=== PATIENT | female | born 1960 | race Caucasian/White ===

== ENCOUNTER 2021-02-06 07:04 | Outpatient (REF) | payer OTHER, SELFPAY ==
[2021-02-06 12:05] LABS: Creatinine Urine 88.44 mg/dL; Microalbum/Creatinine Ratio Ur 5.6 ug/mg cr
[2021-02-06 12:07] LABS: Estimated Average Glucose 140 mg/dL; Hemoglobin A1c % 6.5 %
[2021-02-06 12:34] LABS: Anion Gap 14 (12-20); Blood Urea Nitrogen 18 mg/dL (9-16); Calcium 8.8 mg/dL (8.4-10.2); Carbon Dioxide 27 mmol/L (22-29); Chloride 103 mmol/L (96-108); Cholesterol 153 mg/dL; Estimated Glomerular Filt Rate > 60; Glucose Random 94 mg/dL (60-115); HDL Cholesterol 47 mg/dL; LDL Cholesterol Calculated 78 mg/dl; Potassium 5.2 mmol/L (3.3-5.1); Sodium 139 mmol/L (135-145); Triglycerides 140 mg/dL
== END 2021-02-06 07:05 | disposition home or self-care (01) ==
LOC: HO.HMGCLDS 07:04
PROVIDERS: PCP Internal Medicine; Visit Provider Internal Medicine
DX: E11.9 Type 2 diabetes mellitus without complications (principal)
CPT/HCPCS: 36415; 80048; 80061; 82043; 83036

== ENCOUNTER 2021-03-09 07:55 | Outpatient (REF) | payer OTHER, SELFPAY ==
[2021-03-09 11:26] LABS: MANUAL DIFF FLAG NO
[2021-03-09 11:39] LABS: Basophils Absolute Auto 0.1 X10*3/uL (0.0-0.2); Eosinophils Absolute Auto 0.1 X10*3/uL (0.0-0.4); Eosinophils Percent Auto 2.1 % (0-4); Hematocrit 40.4 % (37.0-47.0); Hemoglobin 12.6 g/dl (12.0-16.0); Imm Gran Abs Auto 0.01 X10*3/uL (0.00-0.03); Imm Gran Pct Auto 0.2 % (0.0-0.4); Lymphocytes Absolute Auto 1.4 X10*3/uL (1.2-4.9); Lymphocytes Percent Auto 24.2 % (20-40); Mean Corpuscular HGB Conc 31.2 g/dl (31.0-35.0); Mean Corpuscular Hemoglobin 25.9 pg (27.0-33.0); Mean Platelet Volume 10.5 fL (9.4-12.3); Monocytes Absolute Auto 0.4 X10*3/uL (0.1-1.2); Monocytes Percent Auto 6.7 % (2-11); Neutrophils Absolute Auto 3.8 x10*3/uL (2.0-8.3); Neutrophils Percent Auto 65.8 % (45-73); Platelet Count 246 X10*3/uL (160-400); Red Blood Count 4.87 X10*6/uL (4.20-5.50); Red Cell Distribution Width 14.4 % (11.0-16.0); White Blood Count 5.8 X10*3/uL (4.8-10.8)
[2021-03-09 11:52] LABS: Estimated Average Glucose 148 mg/dL; Hemoglobin A1c % 6.8 %
[2021-03-09 11:53] LABS: Alanine Aminotransferase 12 U/L (0-31); Alkaline Phosphatase 51 U/L (39-117); Anion Gap 12 (12-20); Aspartate Amino Transferase 15 U/L (5-31); Bilirubin Total 0.5 mg/dL (0.0-1.0); Blood Urea Nitrogen 16 mg/dL (9-16); Calcium 9.2 mg/dL (8.4-10.2); Carbon Dioxide 29 mmol/L (22-29); Chloride 101 mmol/L (96-108); Estimated Glomerular Filt Rate > 60; Glucose Random 111 mg/dL (60-115); Iron 54 mcg/dL (30-160); Percent Iron Saturation 13 % (15-50); Potassium 4.6 mmol/L (3.3-5.1); Rheumatoid Factor < 15.0 IU/mL (<15.0); Sodium 137 mmol/L (135-145); Total Iron Binding Capacity 403 mcg/dL (228-428); Total Protein 6.4 g/dL (6.5-8.0); Unsaturated Iron Binding 349 ug/dL
[2021-03-09 12:16] LABS: Vitamin B12 500 pg/mL (200-900)
[2021-03-09 12:18] LABS: Free T4 (Free Thyroxine) 1.03 ng/dL (0.71-1.85); Thyroid Stimulating Hormone 2.21 uIU/mL (0.32-4.0); Vitamin D 25-OH Total 72.2 ng/mL (>30)
[2021-03-09 12:29] LABS: Ferritin 9 ng/mL (10-250); Insulin 10 uU/mL (2-29)
[2021-03-12 11:41] LABS: Anti Nuclear Antibody Screen NEGATIVE (NEGATIVE)
== END 2021-03-09 07:56 | disposition home or self-care (01) ==
LOC: HO.HMGCLDS 07:55
PROVIDERS: PCP Nurse Practitioner Family; Visit Provider Nurse Practitioner Family
DX: E55.9 Vitamin D deficiency, unspecified (principal); E11.9 Type 2 diabetes mellitus without complications; M25.541 Pain in joints of right hand; D50.8 Other iron deficiency anemias; D51.3 Other dietary vitamin B12 deficiency anemia
CPT/HCPCS: 36415; 80053; 82306; 82607; 82728; 83036; 83525; 83540; 84439; 84443; 85025; 86038; 86039; 86141; 86431

== ENCOUNTER 2021-05-12 07:36 | Outpatient (REF) | payer OTHER, SELFPAY ==
--- NOTE | ~2021-05-12 | MM_ITS ---
EXAMINATION: MM SCREENING DIGITAL BREAST TOMOSYNTHESIS, BILATERAL CLINICAL INFORMATION: Screening. Asymptomatic. The lifetime risk of breast cancer based on the Tyrer-Cuzick Model is 7%. COMPARISON: Outside mammography: 06/20/2020, 05/10/2019 ([facility]) TECHNIQUE: Digital breast tomosynthesis is performed in both the craniocaudal and mediolateral oblique views along with computer-aided detection (CAD). Synthesized 2D images are generated from the tomosynthesis. FINDINGS: There are scattered areas of fibroglandular density (ACR BI-RADS breast composition Category b). Parenchymal pattern is similar to prior outside exams. There is no interval mass or architectural abnormality or abnormal breast parenchymal calcifications. The skin contours are smooth. The MLO views include more of the posterior upper axilla and achieved on prior outside exams. There is an otherwise unremarkable small right axillary node with some associated calcifications which may be related to old granulomatous changes or tattoo pigment if applicable. This is beyond field of view on prior exam outside studies. Otherwise, no lymphadenopathy. MM/MM tomosynthesis screening BI IMPRESSION: There are no significant changes from prior outside exams. ASSESSMENT: BI-RADS 2: Benign RECOMMENDATION: Routine annual mammography screening. This patient's information was entered into a reminder system with a target due date for their next mammogram.
== END 2021-05-12 07:37 | disposition home or self-care (01) ==
LOC: HO.MAMMO 07:36
PROVIDERS: PCP Nurse Practitioner Family; Visit Provider Nurse Practitioner Family
DX: Z12.31 Encounter for screening mammogram for malignant neoplasm of breast (principal)
CPT/HCPCS: 77063; 77067

== ENCOUNTER 2021-06-16 10:33 | Outpatient (REF) | payer OTHER, SELFPAY ==
--- NOTE | ~2021-06-16 | XR_ITS ---
EXAMINATION: XR HAND, BILATERAL CLINICAL INFORMATION: Pain COMPARISON: None TECHNIQUE: 3 views of each hand. FINDINGS: Right Hand: Interphalangeal Joints: There is scattered osteoarthritis manifested by nonuniform joint space narrowing, subchondral cystic change and marginal osteophytes. This involves the IP joint of the thumb, 2nd DIP joint, 3rd DIP, and 3rd PIP joint. Overall mild osteoarthritis. Metacarpophalangeal joints are normal. The bones and joints in the wrist are normal. Left Hand: Interphalangeal Joints: There is scattered osteoarthritis involving the 2nd and 3rd DIP joints manifested by marginal osteophytes and/or subchondral cystic change. Similar findings present in the IP joint of the thumb. Metacarpophalangeal joints normal. Bones and joints of the wrist normal. XR/XR hand LT 2V IMPRESSION: RIGHT HAND: Mild osteoarthritis. LEFT HAND: Mild osteoarthritis.
--- NOTE | ~2021-06-16 | XR_ITS ---
EXAMINATION: XR HAND, BILATERAL CLINICAL INFORMATION: Pain COMPARISON: None TECHNIQUE: 3 views of each hand. FINDINGS: Right Hand: Interphalangeal Joints: There is scattered osteoarthritis manifested by nonuniform joint space narrowing, subchondral cystic change and marginal osteophytes. This involves the IP joint of the thumb, 2nd DIP joint, 3rd DIP, and 3rd PIP joint. Overall mild osteoarthritis. Metacarpophalangeal joints are normal. The bones and joints in the wrist are normal. Left Hand: Interphalangeal Joints: There is scattered osteoarthritis involving the 2nd and 3rd DIP joints manifested by marginal osteophytes and/or subchondral cystic change. Similar findings present in the IP joint of the thumb. Metacarpophalangeal joints normal. Bones and joints of the wrist normal. XR/XR hand RT 2V IMPRESSION: RIGHT HAND: Mild osteoarthritis. LEFT HAND: Mild osteoarthritis.
--- NOTE | ~2021-06-16 | XR_ITS ---
EXAMINATION: BILATERAL KNEE SERIES CLINICAL INFORMATION: Pain COMPARISON: None TECHNIQUE: 4 views of both knees FINDINGS: Right knee: The bones joints and soft tissues are normal without effusion. Left knee: The bones joints and soft tissues are normal without effusion Minimal dystrophic calcification the subcutaneous soft tissues anteriorly without clinical significance XR/XR knee LT 2V IMPRESSION: Normal x-ray series of both knees
--- NOTE | ~2021-06-16 | XR_ITS ---
EXAMINATION: BILATERAL KNEE SERIES CLINICAL INFORMATION: Pain COMPARISON: None TECHNIQUE: 4 views of both knees FINDINGS: Right knee: The bones joints and soft tissues are normal without effusion. Left knee: The bones joints and soft tissues are normal without effusion Minimal dystrophic calcification the subcutaneous soft tissues anteriorly without clinical significance XR/XR knee RT 2V IMPRESSION: Normal x-ray series of both knees
[2021-06-16 13:11] LABS: MANUAL DIFF FLAG NO
[2021-06-16 13:12] LABS: Basophils Absolute Auto 0.1 X10*3/uL (0.0-0.2); Basophils Percent Auto 0.9 % (0-2); Eosinophils Absolute Auto 0.2 X10*3/uL (0.0-0.4); Hemoglobin 13.3 g/dl (12.0-16.0); Imm Gran Abs Auto 0.02 X10*3/uL (0.00-0.03); Imm Gran Pct Auto 0.3 % (0.0-0.4); Lymphocytes Percent Auto 18.1 % (20-40); Mean Corpuscular HGB Conc 31.7 g/dl (31.0-35.0); Mean Corpuscular Volume 85.4 fL (80.0-98.0); Mean Platelet Volume 10.1 fL (9.4-12.3); Monocytes Absolute Auto 0.4 X10*3/uL (0.1-1.2); Monocytes Percent Auto 7.3 % (2-11); Neutrophils Absolute Auto 4.1 x10*3/uL (2.0-8.3); Neutrophils Percent Auto 70.4 % (45-73); Platelet Count 269 X10*3/uL (160-400); Red Blood Count 4.92 X10*6/uL (4.20-5.50); Red Cell Distribution Width 15.4 % (11.0-16.0); White Blood Count 5.8 X10*3/uL (4.8-10.8)
[2021-06-16 13:36] LABS: C Reactive Protein 3.02 mg/dL (< or = 0.50); Rheumatoid Factor < 15.0 IU/mL (<15.0); Uric Acid 5.6 mg/dL (2.4-5.7)
[2021-06-16 13:50] LABS: Erythrocyte Sedimentation Rate 23 MM/HR (0-20)
[2021-06-17 21:12] LABS: A. Phagocytphilium DNA,RT-PCR NOT DETECTED (NOT DETECTED); Babesia Microti DNA, RT-PCR NOT DETECTED (NOT DETECTED); Borrelia Miyamotoi,DNA RT-PCR NOT DETECTED (NOT DETECTED); E.Chaffeensis DNA RT-PCR NOT DETECTED (NOT DETECTED); Lyme(Borrelia ssp)DNA RT-PCR NOT DETECTED (NOT DETECTED); Source-Tick borne disease EDTA
== END 2021-06-16 10:34 | disposition home or self-care (01) ==
LOC: HO.HMGCLDS 10:33
PROVIDERS: PCP Nurse Practitioner Family; Visit Provider Physician Assistant Medical
DX: M25.50 Pain in unspecified joint (principal); M25.40 Effusion, unspecified joint
CPT/HCPCS: 36415; 73120; 73560; 84550; 85025; 85652; 86140; 86431; 87798; 87801

== ENCOUNTER 2021-08-06 07:09 | Outpatient (REF) | payer OTHER, SELFPAY ==
[2021-08-06 07:57] LABS: Binax Internal Control QC Valid; Binax Now Covid-19 Ag Negative (Negative); Binax Performed by: HO.TORG
== END 2021-08-06 07:10 | disposition home or self-care (01) ==
LOC: HO.HMGCLDS 07:09
PROVIDERS: Visit Provider Nurse Practitioner Family
DX: Z13.89 Encounter for screening for other disorder (principal)

== ENCOUNTER → 2021-08-09 14:53 | Outpatient (BNVA) | payer OTHER, SELFPAY | PROVIDERS: PCP Nurse Practitioner Family; Visit Provider Physician Assistant | DX: Z13.89 Encounter for screening for other disorder (principal) ==

== ENCOUNTER 2021-08-15 07:06 | Outpatient (REF) | payer OTHER, SELFPAY ==
[2021-08-15 11:15] LABS: MANUAL DIFF FLAG NO
[2021-08-15 11:21] LABS: Basophils Absolute Auto 0.1 X10*3/uL (0.0-0.2); Basophils Percent Auto 0.7 % (0-2); Eosinophils Absolute Auto 0.1 X10*3/uL (0.0-0.4); Eosinophils Percent Auto 1.7 % (0-4); Hematocrit 44.1 % (37.0-47.0); Hemoglobin 14.1 g/dl (12.0-16.0); Imm Gran Abs Auto 0.02 X10*3/uL (0.00-0.03); Imm Gran Pct Auto 0.3 % (0.0-0.4); Lymphocytes Absolute Auto 1.1 X10*3/uL (1.2-4.9); Lymphocytes Percent Auto 15.2 % (20-40); Mean Corpuscular Hemoglobin 27.9 pg (27.0-33.0); Mean Corpuscular Volume 87.2 fL (80.0-98.0); Mean Platelet Volume 9.8 fL (9.4-12.3); Monocytes Absolute Auto 0.4 X10*3/uL (0.1-1.2); Neutrophils Absolute Auto 5.3 x10*3/uL (2.0-8.3); Neutrophils Percent Auto 76.1 % (45-73); Platelet Count 234 X10*3/uL (160-400); Red Blood Count 5.06 X10*6/uL (4.20-5.50); Red Cell Distribution Width 13.7 % (11.0-16.0)
[2021-08-15 11:37] LABS: Estimated Average Glucose 137 mg/dL; Hemoglobin A1c % 6.4 %
[2021-08-15 11:50] LABS: Alanine Aminotransferase 18 U/L (0-31); Albumin Level 3.9 g/dL (3.5-5.0); Alkaline Phosphatase 44 U/L (39-117); Anion Gap 13 (12-20); Aspartate Amino Transferase 19 U/L (5-31); Bilirubin Total 0.6 mg/dL (0.0-1.0); Blood Urea Nitrogen 10 mg/dL (9-16); C Reactive Protein 0.22 mg/dL (< or = 0.50); Calcium 9.3 mg/dL (8.4-10.2); Carbon Dioxide 30 mmol/L (22-29); Chloride 103 mmol/L (96-108); Cholesterol 147 mg/dL; Estimated Glomerular Filt Rate > 60; Glucose Fasting 103 mg/dL (60-99); HDL Cholesterol 47 mg/dL; LDL Cholesterol Calculated 79 mg/dl; Potassium 4.7 mmol/L (3.3-5.1); Sodium 141 mmol/L (135-145); Total Protein 6.4 g/dL (6.5-8.0); Triglycerides 108 mg/dL
[2021-08-15 11:54] LABS: Vitamin D 25-OH Total 72.7 ng/mL (>30)
[2021-08-15 12:09] LABS: Uric Acid 6.8 mg/dL (2.4-5.7)
[2021-08-15 12:25] LABS: Creatinine Urine 23.45 mg/dL; Microalbumin Urine < 5.0 mg/L
[2021-08-19 15:47] LABS: Apolipoprotein B 86 mg/dL (<90)
== END 2021-08-15 07:07 | disposition home or self-care (01) ==
LOC: HO.HMGCLDS 07:06
PROVIDERS: Absent Provider Nurse Practitioner Family; Visit Provider Registered Nurse
DX: E55.9 Vitamin D deficiency, unspecified (principal); E11.9 Type 2 diabetes mellitus without complications; D50.8 Other iron deficiency anemias; M06.4 Inflammatory polyarthropathy
CPT/HCPCS: 36415; 80053; 80061; 82043; 82172; 82306; 83036; 84550; 85025; 86140

== ENCOUNTER 2021-11-24 07:39 | Outpatient (REF) | payer OTHER, SELFPAY ==
[2021-11-24 11:13] LABS: MANUAL DIFF FLAG NO
[2021-11-24 11:16] LABS: Basophils Absolute Auto 0.1 X10*3/uL (0.0-0.2); Eosinophils Absolute Auto 0.1 X10*3/uL (0.0-0.4); Eosinophils Percent Auto 2.1 % (0-4); Hematocrit 43.5 % (37.0-47.0); Hemoglobin 14.4 g/dl (12.0-16.0); Imm Gran Abs Auto 0.02 X10*3/uL (0.00-0.03); Imm Gran Pct Auto 0.3 % (0.0-0.4); Lymphocytes Absolute Auto 1.5 X10*3/uL (1.2-4.9); Lymphocytes Percent Auto 24.1 % (20-40); Mean Corpuscular HGB Conc 33.1 g/dl (31.0-35.0); Mean Corpuscular Hemoglobin 28.4 pg (27.0-33.0); Mean Corpuscular Volume 85.8 fL (80.0-98.0); Mean Platelet Volume 10.2 fL (9.4-12.3); Monocytes Absolute Auto 0.4 X10*3/uL (0.1-1.2); Monocytes Percent Auto 6.5 % (2-11); Neutrophils Absolute Auto 4.1 x10*3/uL (2.0-8.3); Platelet Count 248 X10*3/uL (160-400); Red Blood Count 5.07 X10*6/uL (4.20-5.50); White Blood Count 6.2 X10*3/uL (4.8-10.8)
[2021-11-24 11:37] LABS: Estimated Average Glucose 120 mg/dL; Hemoglobin A1C 150.5457 umol/L; Hemoglobin A1c % 5.8 %
[2021-11-24 11:55] LABS: Cholesterol 137 mg/dL; HDL Cholesterol 47 mg/dL; Iron 69 mcg/dL (30-160); LDL Cholesterol Calculated 69 mg/dl; Percent Iron Saturation 21 % (15-50); Total Iron Binding Capacity 321 mcg/dL (228-428); Triglycerides 108 mg/dL; Unsaturated Iron Binding 252 ug/dL
[2021-11-24 11:59] LABS: Creatinine Urine 73.27 mg/dL; Microalbum/Creatinine Ratio Ur 6.8 ug/mg cr
[2021-11-24 12:00] LABS: TSH reflex Free T4 2.36 uIU/mL (0.32-4.0); Vitamin D 25-OH Total 75.8 ng/mL (>30)
[2021-11-24 12:12] LABS: Folate > 20.0 ng/mL (> or = 4.0); Vitamin B12 414 pg/mL (200-900)
== END 2021-11-24 07:40 | disposition home or self-care (01) ==
LOC: HO.HMGCLDS 07:39
PROVIDERS: PCP Internal Medicine; Visit Provider Internal Medicine
DX: E11.9 Type 2 diabetes mellitus without complications (principal); I10 Essential (primary) hypertension; E78.5 Hyperlipidemia, unspecified
CPT/HCPCS: 36415; 80061; 82043; 82306; 82607; 82746; 83036; 83540; 84443; 85025

== ENCOUNTER 2021-12-10 13:27 | Outpatient (REF) | payer OTHER, SELFPAY ==
--- NOTE | ~2021-12-10 | US_ITS ---
EXAMINATION: US EXTRACRANIAL CAROTID DUPLEX, BILATERAL CLINICAL INFORMATION: Carotid bruit. COMPARISON: None TECHNIQUE: Real-time ultrasound and Doppler techniques (integrating B-mode 2-D vascular images, Doppler spectral analysis and color-flow Doppler imaging) were utilized to interrogate the extracranial carotid arteries, the vertebral arteries and proximal subclavian arteries bilaterally. The degree of stenosis is determined by criteria similar to NASCET. FINDINGS: Right Side: 1. There is mild atherosclerotic plaque seen in the bifurcation/proximal ICA region. 2. The common carotid artery PSV proximally is 96 cm/s and distally 77 cm/s. 3. The proximal internal carotid artery velocities are 51 cm/s systolic and 15 cm/s diastolic. 4. The proximal external carotid artery PSV is 92 cm/s. 5. The vertebral artery shows antegrade flow. 6. The subclavian artery waveforms are normal. Left Side: 1. There is mild atherosclerotic plaque seen in the bifurcation/proximal ICA region. 2. The common carotid artery PSV proximally is 103 cm/s and distally 82 cm/s. 3. The proximal internal carotid artery velocities are 73 cm/s systolic and 33 cm/s diastolic. 4. The proximal external carotid artery PSV is 89 cm/s. 5. The vertebral artery shows antegrade flow. 6. The subclavian artery waveforms are normal. US/US carotid duplex BI IMPRESSION: 1. RIGHT: Minimal, non-hemodynamically significant stenosis of the proximal right internal carotid artery corresponding to a 0-49% stenosis by velocity criteria. 2. LEFT: Minimal, non-hemodynamically significant stenosis of the proximal left internal carotid artery corresponding to a 0-49% stenosis by velocity criteria.
== END 2021-12-10 13:28 | disposition home or self-care (01) ==
LOC: HO.HMGCX 13:27
PROVIDERS: Visit Provider Internal Medicine
DX: R09.89 Other specified symptoms and signs involving the circulatory and respiratory systems (principal); I10 Essential (primary) hypertension; E78.5 Hyperlipidemia, unspecified; E11.9 Type 2 diabetes mellitus without complications
CPT/HCPCS: 93880

== ENCOUNTER 2021-12-19 08:35 | Outpatient (REF) | payer OTHER, SELFPAY ==
--- NOTE | ~2021-12-19 | MM_ITS ---
EXAMINATION: BONE DENSITOMETRY CLINICAL INDICATION: Type 2 diabetes mellitus without complications. COMPARISON: None (current study represents initial baseline exam). TECHNIQUE: Using a [employer] DXA System (software version: 13.1) manufactured by [employer], dual-energy x-ray absorptiometry was performed of the lumbar spine and left hip. The images are of good technical quality. Summary results are attached. FINDINGS: AP SPINE L1-L4: BMD 1.105 g/cm2, Z-score -0.1, T-score -0.6, normal. LEFT FEMUR, NECK: BMD 0.828 g/cm2, Z-score -0.7, T-score -1.5, osteopenia. LEFT FEMUR, TOTAL: BMD 0.831 g/cm2, Z-score -1.0, T-score -1.4, osteopenia. IDENTIFIED RISK FACTORS: Early menopause, secondary osteoporosis. HISTORY OF FRACTURE: None listed. MEDICATIONS: Calcium, vitamin D. MM/XR DEXA axial skeleton IMPRESSION: 1. DIAGNOSIS: Osteopenia based on the lowest T-score value of -1.5 in the femoral neck applying World Health Organization criteria. 2. 10-YEAR FRACTURE RISK PREDICTION, FRAX: Major osteoporotic fracture (clinical spine, forearm, hip or shoulder) 7.8%. Hip fracture 0.7%. 3. Treatment Recommendations: NOF guidelines recommend consideration for treatment in postmenopausal women and men age 50 and older presenting with the following: -A hip or vertebral (clinical or morphometric) fracture. -T-score less than or equal to -2.5 at the femoral neck or spine after appropriate evaluation to exclude secondary causes. -Low bone mass at the hip or spine and a 10-year fracture probability by FRAX of greater than or equal to 3% for hip fracture or greater than or equal to 20% for major osteoporotic fracture based on the [place] adapted WHO algorithm. 4. Other Recommendations: All treatment decisions require clinical judgment and consideration of individual patient factors, including patient preferences, comorbidities, previous drug use, risk factors not captured in the FRAX model (e.g. frailty, falls, vitamin D deficiency, increased bone turnover, interval significant decline in bone density) and possible under or overestimation of fracture risk by FRAX. Additional medical evaluation for secondary cause of low bone mineral density may be appropriate. FUTURE SCAN RECOMMENDATION: People with diagnosed cases of osteoporosis or at high risk for fracture should have regular bone mineral density tests. For patients eligible for Medicare, routine testing is allowed once every 2 years. The testing frequency can be increased to one year for patients who have rapidly progressing disease, those who are receiving or discontinuing medical therapy to restore bone mass, or have additional risk factors.
== END 2021-12-19 08:36 | disposition home or self-care (01) ==
LOC: HO.MAMMO 08:35
PROVIDERS: PCP Internal Medicine; Visit Provider Internal Medicine
DX: Z13.820 Encounter for screening for osteoporosis (principal); E11.9 Type 2 diabetes mellitus without complications; I10 Essential (primary) hypertension; Z78.0 Asymptomatic menopausal state
CPT/HCPCS: 77080

== ENCOUNTER 2022-01-03 06:24 | Day surgery (SDC) | payer OTHER, SELFPAY ==
[2021-12-28 11:47] VITALS: BMI 35.9
--- NOTE | 2022-01-02 09:49 | HO.ANESPROP2 ---
Documented by User: Merary Dominguez NP 01/02/22 10:07 HPI - Anesthesia Eval Consult details Narrative: 61yo F for Upper Endoscopy and Colonoscopy PMFSH Active Problems Active Problems: All Active Problems (Updated 12/28/21 @ 11:43 by Verenice Saucedo RN) Encounter for screening for COVID-19 (Acute) Encounter for screening colonoscopy (Acute) Acid reflux (Acute) DM type 2 (diabetes mellitus, type 2) (Acute) HTN (hypertension) (Acute) Hyperlipidemia (Acute) Carotid bruit (Acute) Postmenopausal (Acute) Past Medical History Medical History Diabetes Elevated cholesterol GERD (gastroesophageal reflux disease) HTN (hypertension) Family History Family History Father No problems noted. Mother Diabetes Valvular heart disease CVA (cerebral vascular accident) Surgical History Surgical History History of colposcopy Hx of colonoscopy Hx of excision of lamina of cervical vertebra for decompression of spinal cord Hx of gastric bypass Hx of tonsillectomy Social History Social History Household Members Other:: Housing: House Alcohol intake: never Patient Tobacco Use Status: Never used Tobacco e-Cigarette/Vaping Use: Never Used Are you DNR?: No Advance Directives: No Advance Directives Information Provided: Yes Recently lost weight without trying: No Nutrition Risks: No Nutritional Risk service: No Current occupational status: employed Current occupation: [employer] Cognitive needs: No Hearing needs: No Vision needs: Yes Meds Allergies Allergy/AdvReac Type Severity Reaction Status Date / Time No Known Allergies Allergy Verified 06/16/21 09:36 Home Medications Medication Instructions Recorded Confirmed Last Taken Type calcium carbonate 600 mg calcium 600 mg PO DAILY 06/16/21 12/28/21 12/26/21 History (1,500 mg) tablet (Calcium) flash glucose scanning reader #1 ea 06/16/21 11/16/21 Unknown History (FreeStyle Sandro 14 Day [place]) lancets 28 gauge (FreeStyle #100 ea 06/16/21 11/16/21 Unknown History Lancets) lisinopril 10 mg tablet 10 mg PO DAILY 06/16/21 12/28/21 01/02/22 History loratadine 10 mg tablet 10 mg PO DAILY 06/16/21 12/28/21 01/02/22 History pantoprazole 20 mg tablet,delayed 20 mg PO DAILY 06/16/21 12/28/21 01/02/22 History release simvastatin 40 mg tablet 40 mg PO BEDTIME 06/16/21 12/28/21 01/02/22 History turmeric 400 mg capsule 400 mg PO DAILY 06/16/21 01/03/22 12/04/21 History metformin 1,000 mg tablet,extended 1,000 mg PO BID 08/09/21 12/28/21 01/02/22 History release 24hr cholecalciferol (vitamin D3) 25 25 mcg PO DAILY 11/16/21 12/28/21 01/02/22 History mcg (1,000 unit) tablet ferrous sulfate 143 mg PO DAILY 11/16/21 12/28/21 12/27/21 History semaglutide 1 mg/dose (4 mg/3 mL) 1 mg subcut QWEEK 11/16/21 12/28/21 12/28/21 History subcutaneous pen injector (Ozempic) Exam Exam Date and Time: January 02, 2022 0949 Height,Weight and Vital Signs: Height 5 ft 3 in Weight 91.852 kg Pertinent Lab Results Pertinent Lab Results: Laboratory Tests 08/15/21 11/24/21 07:43 07:45 WBC 6.2 Hgb 14.4 Hct 43.5 Plt Count 248 Sodium 141 Potassium 4.7 Chloride 103 Carbon Dioxide 30 H BUN 10 Creatinine 0.85 Narrative Narrative: US carotid duplex BI 11/2021 IMPRESSION: 1. RIGHT: Minimal, non-hemodynamically significant stenosis of the proximal right internal carotid artery corresponding to a 0-49% stenosis by velocity criteria. ? 2. LEFT: Minimal, non-hemodynamically significant stenosis of the proximal left internal carotid artery corresponding to a 0-49% stenosis by velocity criteria. Assessment and Plan Assessment Anesthesia Assessment: Chart Reviewed Documented by User: Negin Enrique MD 01/03/22 07:37 FORMERLY [facility], [facility] Past Medical History Medical History Diabetes Elevated cholesterol GERD (gastroesophageal reflux disease) HTN (hypertension) Functional capacity: independent ambulation Patient : No Family History Family History Father No problems noted. Mother Diabetes Valvular heart disease CVA (cerebral vascular accident) Surgical History Surgical History History of colposcopy Hx of colonoscopy Hx of excision of lamina of cervical vertebra for decompression of spinal cord Hx of gastric bypass Hx of tonsillectomy History of Problems with Anesthesia: No Social History Social History Household Members Other:: Housing: House Alcohol intake: never Patient Tobacco Use Status: Never used Tobacco e-Cigarette/Vaping Use: Never Used Are you DNR?: No Advance Directives: No Advance Directives Information Provided: Yes Recently lost weight without trying: No Nutrition Risks: No Nutritional Risk service: No Current occupational status: employed Current occupation: [employer] Cognitive needs: No Hearing needs: No Vision needs: Yes Meds Allergies Allergy/AdvReac Type Severity Reaction Status Date / Time No Known Allergies Allergy Verified 06/16/21 09:36 Home Medications Medication Instructions Recorded Confirmed Last Taken Type calcium carbonate 600 mg calcium 600 mg PO DAILY 06/16/21 12/28/21 12/26/21 History (1,500 mg) tablet (Calcium) flash glucose scanning reader #1 ea 06/16/21 11/16/21 Unknown History (FreeStyle Sandro 14 Day [place]) lancets 28 gauge (FreeStyle #100 ea 06/16/21 11/16/21 Unknown History Lancets) lisinopril 10 mg tablet 10 mg PO DAILY 06/16/21 12/28/21 01/02/22 History loratadine 10 mg tablet 10 mg PO DAILY 06/16/21 12/28/21 01/02/22 History pantoprazole 20 mg tablet,delayed 20 mg PO DAILY 06/16/21 12/28/21 01/02/22 History release simvastatin 40 mg tablet 40 mg PO BEDTIME 06/16/21 12/28/21 01/02/22 History turmeric 400 mg capsule 400 mg PO DAILY 06/16/21 01/03/22 12/04/21 History metformin 1,000 mg tablet,extended 1,000 mg PO BID 08/09/21 12/28/21 01/02/22 History release 24hr cholecalciferol (vitamin D3) 25 25 mcg PO DAILY 11/16/21 12/28/21 01/02/22 History mcg (1,000 unit) tablet ferrous sulfate 143 mg PO DAILY 11/16/21 12/28/21 12/27/21 History semaglutide 1 mg/dose (4 mg/3 mL) 1 mg subcut QWEEK 11/16/21 12/28/21 12/28/21 History subcutaneous pen injector (Ozempic) Exam Airway Mallampati Class: II TM Dist: >3cm Neck ROM: Full Heart: RRR Lungs: CT@ Assessment and Plan Final Anesthetic Review History of Problems with Anesthesia: No ASA Class: II Final Preanesthetic Review: No Changes in Pt Med Stat, Meds/Allgs Chart Reviewed, Consent Obtained/Reviewed and Anes Risks/Benef Reviewed Patient Risk: Low Procedure Risk: Low Anesthetic Plan Anesthetic Plan: MAC: Disposition: Standard PACU
[2022-01-03 06:30] VITALS: BP 133/81; PULSE 85; RESP 18; TEMP 36.7; O2SAT 98
[2022-01-03 06:40] LABS: Glucose, Whole Blood 94 mg/dL (60-115)
[2022-01-03] MEDS: Lactated Ringers 1,000 ML 100 ML IVCONT (06:51)
--- NOTE | 2022-01-03 07:02 | MHC.SHP ---
Pre-Procedural Eval Section A Date of Service: 01/03/22 Section B Chief Complaint: screening,reflux disease Relevant Family History (Specify if Yes): No Relevant Social History: None Present Medications: see Short Stay Collaborative assessment Medical History: Significant History (Diabetes Elevated cholesterol GERD (gastroesophageal reflux disease) HTN (hypertension)) History of Previous Operations: Relevant previous surgery/procedure and date(s) (History of colposcopy Hx of colonoscopy Hx of excision of lamina of cervical vertebra for decompression of spinal cord Hx of gastric bypass Hx of tonsillectomy) Allergies: Allergies Allergy/AdvReac Type Severity Reaction Status Date / Time No Known Allergies Allergy Verified 06/16/21 09:36 Review of Systems Sugical H&P ROS: Negative: Constitution, Cardiovascular, Respiratory, Neurological, Psychiatric, Hem-Onc, Allergic/Immunologic, Gastrointestinal, Genitourinary, Musculoskeletal, Integumentary, Endocrine and Eyes/Ears/Nose/Throat Exam Surgical H&P Exam: Normal: HEENT, Normal: Heart, Normal: Lungs, Normal: Extremities, Normal: Abdomen, Normal: Skin and Normal: Neurological Plan Diagnosis/Plan: Unchanged I have reviewed the history and physical and performed a pertinent physical examination on my patient. No changes have occurred unless specified.
--- NOTE | 2022-01-03 07:04 | P.OP_ITS ---
Operative Note Operative Note Date of Service: 01/03/22 Narrative: Operative Information Procedure Description: EGD, Colonoscopy Indication: GERD, screening Anesthesia: MAC FLEXIBLE TRANSORAL UPPER GASTROINTESTINAL ENDOSCOPY AND COLONOSCOPY PROCEDURE NOTE UPPER ENDOSCOPY Consent: Indications for the procedure and potential complications of bleeding, perforation, reaction to medications and missed diagnosis were discussed with the patient and informed consent was obtained. Instrument: Olympus GIF H 190 J mid size upper endoscope Monitoring: Vital signs and clinical assessment, continuous EKG monitoring, Pulse oximetry, Carbon Dioxide monitoring and blood pressure monitoring were done throughout the procedure. Procedure: The patient was placed in the left lateral decubitis position and pre-procedure medications were administered and a bite block was placed. The endoscope was inserted into the mouth and advanced under direct vision to the jejunum. A careful inspection was made as the upper endoscope was withdrawn including a retroflexed examination of the proximal stomach; Findings and interventions are described below. Hx of gastric bypass Findings: Larynx:normal Esophagus: GE junction at 34 cm, diaphragm hiatus at 37 cm, 3 cm sliding hiatal hernia noted. Erosive esophagitis LA grade a noted, bx taken from GEJ, distal esophagus and proximal esophagus. Stomach pouch: Normal mucosa. Biopsies were obtained from pouch and also from the anastomosis which was slightly inflammed. Grade 3 flap valve on retroflexed examination of the cardia. Jejunum: Normal -bx taken Intervention: Biopsies as noted above COLONOSCOPY Instrument: Olympus variable stiffness pediatric scope 190L Colonoscopy Monitoring: Vital signs and clinical assessment, continuous EKG monitoring, Pulse oximetry, Carbon Dioxide monitoring and blood pressure monitoring were done throughout the procedure. Colon withdrawal time was 7 minutes. Procedure: The patient was placed in the left lateral decubitis position and pre-procedure medications were administered. After a digital rectal examination of the ano-rectum, the video colonoscope was inserted into the rectum and advanced through the colon to the cecum/TI. The colonoscope was slowly withdrawn in a retrograde panoramic fashion and the colon mucosa was carefully examined including a retroflexed view of the rectum. Findings and interventions are described below. Procedure Difficulty: easy Findings: Terminal Ileum-normal Cecum:normal Ascending Colon: normal Transverse Colon -normal Descending Colon:normal Sigmoid Colon: mild diverticulosis Rectum: Retroflexion with small internal hemorrhoids, grade I Anorectum - normal Colon preparation: [place] Bowel Preparation Scale Right colon; 2 Transverse colon: 3 Left colon; 3 (0 = Unprepared colon segment with mucosa not seen due to solid stool that cannot be cleared. 1 = Portion of mucosa of the colon segment seen, but other areas of the colon segment not well seen due to staining, residual stool and/or opaque liquid. 2 = Minor amount of residual staining, small fragments of stool and/or opaque liquid, but mucosa of colon segment seen well. 3 = Entire mucosa of colon segment seen well with no residual staining, small fragments of stool or opaque liquid) Impression and Post Procedure Diagnosis: Endoscopy Findings: hiatal hernia erosive esophagitis Colonoscopy Findings: internal hemorrhoids diverticular disease Plan: Await Pathology results Repeat Colonoscopy in 10 years or earlier if clinically indicated High fiber diet leaflet avoid straining at stool, epsom salts and sitz bath, anusol supps or cream take PPI correctly, open capsule and mix with apple sauce, if sx persist then refer for hernia repair Above findings were reviewed with the patient and relevant handouts were provided if indicated.
[2022-01-03 08:32] VITALS: BP 104/64; PULSE 70; RESP 16; TEMP 36.2; O2SAT 95
--- NOTE | 2022-01-03 08:46 | P.CONAN_ITS ---
[facility] Active Problems Active Problems: All Active Problems (Updated 12/28/21 @ 11:43 by Verenice Saucedo RN) Encounter for screening for COVID-19 (Acute) Encounter for screening colonoscopy (Acute) Acid reflux (Acute) DM type 2 (diabetes mellitus, type 2) (Acute) HTN (hypertension) (Acute) Hyperlipidemia (Acute) Carotid bruit (Acute) Postmenopausal (Acute) Past Medical History Medical History Diabetes Elevated cholesterol GERD (gastroesophageal reflux disease) HTN (hypertension) Functional capacity: independent ambulation Family History Family History Father No problems noted. Mother Diabetes Valvular heart disease CVA (cerebral vascular accident) Surgical History Surgical History History of colposcopy Hx of colonoscopy Hx of excision of lamina of cervical vertebra for decompression of spinal cord Hx of gastric bypass Hx of tonsillectomy History of Problems with Anesthesia: No Social History Social History Household Members Other:: Housing: House Alcohol intake: never Patient Tobacco Use Status: Never used Tobacco e-Cigarette/Vaping Use: Never Used Are you DNR?: No Advance Directives: No Advance Directives Information Provided: Yes Recently lost weight without trying: No Nutrition Risks: No Nutritional Risk Patient : No service: No Current occupational status: employed Current occupation: [employer] Cognitive needs: No Hearing needs: No Vision needs: Yes Meds Allergies Allergy/AdvReac Type Severity Reaction Status Date / Time No Known Allergies Allergy Verified 06/16/21 09:36 Active Medications: Current Medications Lactated Ringer's (Lr) 1,000 mls @ 100 mls/hr IVCONT .Q10H DEEP Last Admin: 01/03/22 06:51 Dose: 100 mls/hr Home Medications Medication Instructions Recorded Confirmed Last Taken Type calcium carbonate 600 mg calcium 600 mg PO DAILY 06/16/21 12/28/21 12/26/21 History (1,500 mg) tablet (Calcium) flash glucose scanning reader #1 ea 06/16/21 11/16/21 Unknown History (FreeStyle [place]ro 14 Day [place]) lancets 28 gauge (FreeStyle #100 ea 06/16/21 11/16/21 Unknown History Lancets) lisinopril 10 mg tablet 10 mg PO DAILY 06/16/21 12/28/21 01/02/22 History loratadine 10 mg tablet 10 mg PO DAILY 06/16/21 12/28/21 01/02/22 History pantoprazole 20 mg tablet,delayed 20 mg PO DAILY 06/16/21 12/28/21 01/02/22 His tory release simvastatin 40 mg tablet 40 mg PO BEDTIME 06/16/21 12/28/21 01/02/22 History turmeric 400 mg capsule 400 mg PO DAILY 06/16/21 01/03/22 12/04/21 History metformin 1,000 mg tablet,extended 1,000 mg PO BID 08/09/21 12/28/21 01/02/22 History release 24hr cholecalciferol (vitamin D3) 25 25 mcg PO DAILY 11/16/21 12/28/21 01/02/22 History mcg (1,000 unit) tablet ferrous sulfate 143 mg PO DAILY 11/16/21 12/28/21 12/27/21 History semaglutide 1 mg/dose (4 mg/3 mL) 1 mg subcut QWEEK 11/16/21 12/28/21 12/28/21 History subcutaneous pen injector (Ozempic) Exam Exam Date and Time: January 03, 2022 0846 Height,Weight and Vital Signs: Height 5 ft 3 in Weight 91.852 kg Last Vital Signs Temp 97.1 F 01/03/22 08:32 Pulse 70 01/03/22 08:32 Resp 16 01/03/22 08:32 BP 104/64 01/03/22 08:32 Pulse Ox 95 01/03/22 08:32 O2 Del Method 01/03/22 08:32 Pertinent Lab Results Pertinent Lab Results: Laboratory Tests 01/03/22 06:36 POC Glucose 94 Assessment and Plan Final Anesthetic Review History of Problems with Anesthesia: No
[2022-01-03 08:47] VITALS: BP 120/73; PULSE 66; RESP 18; TEMP 36.2; O2SAT 95
--- NOTE | 2022-01-03 09:15 | HO.POSTANES ---
Post Anesthesia Evaluation Post Anesthesia Evaluation Vital Signs: Vital Signs Temp Pulse Resp BP Pulse Ox O2 Del Method 01/03/22 08:47 97.1 F 66 18 120/73 95 Room Air 01/03/22 08:32 97.1 F 70 16 104/64 95 Room Air 01/03/22 06:30 98.0 F 85 18 133/81 98 Room Air Anesthesia: Monitored Mental Status: Awake Pain Control: Satisfactory Nausea/Vomiting: None Hydration: Adequate Anesthesia-Related Issues: No Anes. Related Issues
== END 2022-01-03 09:16 | disposition home or self-care (01) ==
PROVIDERS: PCP Internal Medicine; Visit Provider Internal Medicine Gastroenterology
PROC: (CPT 45378; principal; 2022-01-03 07:30)
DX: Z12.11 Encounter for screening for malignant neoplasm of colon (principal); K57.30 Diverticulosis of large intestine without perforation or abscess without bleeding; K64.0 First degree hemorrhoids; K21.9 Gastro-esophageal reflux disease without esophagitis; K20.80 Other esophagitis without bleeding; K31.7 Polyp of stomach and duodenum; K29.50 Unspecified chronic gastritis without bleeding; K44.9 Diaphragmatic hernia without obstruction or gangrene; Z98.0 Intestinal bypass and anastomosis status; Z98.84 Bariatric surgery status; E78.00 Pure hypercholesterolemia, unspecified; I10 Essential (primary) hypertension; E11.9 Type 2 diabetes mellitus without complications; Z79.84 Long term (current) use of oral hypoglycemic drugs; Z79.899 Other long term (current) drug therapy
CPT/HCPCS: 45378; 43239; 82947; 88305; 88342

== ENCOUNTER 2022-01-25 10:35 | Outpatient (REF) | payer OTHER, SELFPAY ==
--- NOTE | ~2022-01-25 | XR_ITS ---
EXAMINATION: XR WRIST, LEFT CLINICAL INFORMATION: Injury of the left wrist, hand, fingers COMPARISON: 06/16/2021 TECHNIQUE: 4 views of the left wrist FINDINGS: There is no fracture or dislocation. The carpal rows are well aligned. Degenerative changes at the first carpometacarpal joint with small osteophytes. Mild soft tissue swelling throughout the wrist. XR/XR wrist LT w scaphoid IMPRESSION: No fracture or malalignment. Mild soft tissue swelling. Mild degenerative change of the first carpometacarpal joint.
== END 2022-01-25 10:36 | disposition home or self-care (01) ==
LOC: HO.HMGCX 10:35
PROVIDERS: PCP Internal Medicine; Visit Provider Internal Medicine
DX: S69.92XA Unspecified injury of left wrist, hand and finger(s), initial encounter (principal)
CPT/HCPCS: 73110

== ENCOUNTER 2022-02-21 06:45 | Outpatient (REF) | payer OTHER, SELFPAY ==
[2022-02-21 12:10] LABS: Alanine Aminotransferase 15 U/L (0-31); Albumin Level 3.9 g/dL (3.5-5.0); Alkaline Phosphatase 40 U/L (39-117); Anion Gap 11 (12-20); Aspartate Amino Transferase 17 U/L (5-31); Bilirubin Total 0.5 mg/dL (0.0-1.0); Blood Urea Nitrogen 12 mg/dL (9-16); Carbon Dioxide 30 mmol/L (22-29); Chloride 101 mmol/L (96-108); Cholesterol 147 mg/dL; Estimated Average Glucose 114 mg/dL; Estimated Glomerular Filt Rate > 60; Glucose Fasting 89 mg/dL (60-99); HDL Cholesterol 48 mg/dL; Hemoglobin A1c % 5.6 %; LDL Cholesterol Calculated 82 mg/dl; Potassium 4.6 mmol/L (3.3-5.1); Sodium 137 mmol/L (135-145); Total Protein 5.8 g/dL (6.5-8.0); Triglycerides 86 mg/dL
[2022-02-21 12:12] LABS: Creatinine Urine 35.44 mg/dL; Microalbumin Urine < 5.0 mg/L
[2022-02-22 14:21] LABS: Vitamin D 25-OH Total 48.8 ng/mL (>30)
[2022-02-22 17:20] LABS: Iron 71 mcg/dL (30-160)
[2022-02-22 17:41] LABS: Percent Iron Saturation 27 % (15-50); Total Iron Binding Capacity 265 mcg/dL (228-428); Unsaturated Iron Binding 194 ug/dL
== END 2022-02-21 06:46 | disposition home or self-care (01) ==
LOC: HO.HMGCLDS 06:45
PROVIDERS: PCP Internal Medicine; Visit Provider Internal Medicine
DX: E78.5 Hyperlipidemia, unspecified (principal); I10 Essential (primary) hypertension; E11.9 Type 2 diabetes mellitus without complications
CPT/HCPCS: 36415; 80053; 80061; 82043; 82306; 83036; 83540

== ENCOUNTER 2022-04-03 06:37 | Outpatient (REF) | payer OTHER, SELFPAY ==
[2022-04-03 12:15] LABS: Anion Gap 12 (12-20); Blood Urea Nitrogen 13 mg/dL (9-16); Calcium 9.2 mg/dL (8.4-10.2); Carbon Dioxide 29 mmol/L (22-29); Chloride 102 mmol/L (96-108); Estimated Glomerular Filt Rate > 60; Glucose Random 85 mg/dL (60-115); Iron 71 mcg/dL (30-160); Percent Iron Saturation 26 % (15-50); Potassium 4.5 mmol/L (3.3-5.1); Sodium 138 mmol/L (135-145); Total Iron Binding Capacity 269 mcg/dL (228-428); Unsaturated Iron Binding 198 ug/dL
[2022-04-03 12:31] LABS: Vitamin D 25-OH Total 47.6 ng/mL (>30)
== END 2022-04-03 06:38 | disposition home or self-care (01) ==
LOC: HO.HMGCLDS 06:37
PROVIDERS: PCP Internal Medicine; Visit Provider Internal Medicine
DX: I10 Essential (primary) hypertension (principal); E78.5 Hyperlipidemia, unspecified; E11.9 Type 2 diabetes mellitus without complications
CPT/HCPCS: 36415; 80048; 82306; 83540

== ENCOUNTER 2022-05-18 07:55 | Outpatient (REF) | payer OTHER, SELFPAY ==
--- NOTE | ~2022-05-18 | MM_ITS ---
EXAMINATION: MM SCREENING DIGITAL BREAST TOMOSYNTHESIS, BILATERAL CLINICAL INFORMATION: Screening. Asymptomatic. The lifetime risk of breast cancer based on the Tyrer-Cuzick Model is 10%. COMPARISON: Mammography: 05/12/2021; outside mammography 06/20/2020, 05/10/2019 ([facility]). TECHNIQUE: Digital breast tomosynthesis is performed in both the craniocaudal and mediolateral oblique views along with computer-aided detection (CAD). Synthesized 2D images are generated from the tomosynthesis. FINDINGS: There are scattered areas of fibroglandular density (ACR BI-RADS breast composition Category b). There are no significant masses, abnormal calcifications, or other abnormalities. No architectural abnormality or developing density or significant change from prior studies. No adenopathy. Skin contours are smooth. MM/MM tomosynthesis screening BI IMPRESSION: No mammographic evidence of malignancy. ASSESSMENT: BI-RADS 1: Negative RECOMMENDATION: Routine annual mammography screening. This patient's information was entered into a reminder system with a target due date for their next mammogram.
== END 2022-05-18 07:56 | disposition home or self-care (01) ==
LOC: HO.MAMMO 07:55
PROVIDERS: PCP Internal Medicine; Visit Provider Internal Medicine
DX: Z12.31 Encounter for screening mammogram for malignant neoplasm of breast (principal)
CPT/HCPCS: 77063; 77067

== ENCOUNTER 2022-06-07 07:09 | Outpatient (REF) | payer OTHER, SELFPAY ==
[2022-06-07 12:53] LABS: MANUAL DIFF FLAG NO
[2022-06-07 13:02] LABS: Basophils Absolute Auto 0.1 X10*3/uL (0.0-0.2); Basophils Percent Auto 1.2 % (0-2); Eosinophils Absolute Auto 0.1 X10*3/uL (0.0-0.4); Eosinophils Percent Auto 1.8 % (0-4); Hematocrit 42.4 % (37.0-47.0); Hemoglobin 13.4 g/dl (12.0-16.0); Imm Gran Abs Auto 0.01 X10*3/uL (0.00-0.03); Imm Gran Pct Auto 0.2 % (0.0-0.4); Lymphocytes Absolute Auto 1.3 X10*3/uL (1.2-4.9); Lymphocytes Percent Auto 26.2 % (20-40); Mean Corpuscular HGB Conc 31.6 g/dl (31.0-35.0); Mean Corpuscular Volume 88.7 fL (80.0-98.0); Mean Platelet Volume 10.4 fL (9.4-12.3); Monocytes Absolute Auto 0.3 X10*3/uL (0.1-1.2); Neutrophils Absolute Auto 3.1 x10*3/uL (2.0-8.3); Neutrophils Percent Auto 63.6 % (45-73); Platelet Count 251 X10*3/uL (160-400); Red Blood Count 4.78 X10*6/uL (4.20-5.50); Red Cell Distribution Width 13.2 % (11.0-16.0); White Blood Count 4.9 X10*3/uL (4.8-10.8)
[2022-06-07 13:27] LABS: Estimated Average Glucose 108 mg/dL; Hemoglobin A1C 129.3196 umol/L; Hemoglobin A1c % 5.4 %
[2022-06-07 13:44] LABS: Alanine Aminotransferase 12 U/L (0-31); Albumin Level 3.9 g/dL (3.5-5.0); Alkaline Phosphatase 41 U/L (39-117); Anion Gap 14 (12-20); Aspartate Amino Transferase 19 U/L (5-31); Bilirubin Total 0.6 mg/dL (0.0-1.0); Blood Urea Nitrogen 12 mg/dL (9-16); Calcium 9.2 mg/dL (8.4-10.2); Carbon Dioxide 28 mmol/L (22-29); Chloride 101 mmol/L (96-108); Cholesterol 154 mg/dL; Estimated Glomerular Filt Rate > 60; Glucose Fasting 87 mg/dL (60-99); HDL Cholesterol 51 mg/dL; LDL Cholesterol Calculated 83 mg/dl; Potassium 4.9 mmol/L (3.3-5.1); Sodium 138 mmol/L (135-145); Triglycerides 103 mg/dL
[2022-06-07 14:00] LABS: Vitamin B12 257 pg/mL (200-900); Vitamin D 25-OH Total 57.4 ng/mL (>30)
== END 2022-06-07 07:10 | disposition home or self-care (01) ==
LOC: HO.HMGCLDS 07:09
PROVIDERS: PCP Internal Medicine; Visit Provider Internal Medicine
DX: E78.5 Hyperlipidemia, unspecified (principal); I10 Essential (primary) hypertension; E11.9 Type 2 diabetes mellitus without complications
CPT/HCPCS: 36415; 80053; 80061; 82306; 82607; 83036; 85025

== ENCOUNTER 2022-06-26 09:34 | Outpatient (REF) | payer OTHER, SELFPAY ==
--- NOTE | ~2022-06-26 | XR_ITS ---
EXAMINATION: XR SHOULDER, RIGHT CLINICAL INFORMATION: Pain COMPARISON: None available. TECHNIQUE: AP external rotation, Grashey, scapular Y, and axillary views of the right shoulder. FINDINGS: Bone alignment is normal. No fracture or dislocation. Normal joint spaces. Small soft tissue calcification adjacent to the greater tuberosity. XR/XR shoulder RT min 2V IMPRESSION: Small soft tissue calcification adjacent to the greater tuberosity suggestive of calcific tendinitis or bursitis.
== END 2022-06-26 09:35 | disposition home or self-care (01) ==
LOC: HO.HMGCX 09:34
PROVIDERS: PCP Internal Medicine; Visit Provider Internal Medicine
DX: M25.511 Pain in right shoulder (principal)
CPT/HCPCS: 73030

== ENCOUNTER 2022-08-01 14:00 | Outpatient (RCR) | payer OTHER, SELFPAY ==
--- NOTE | 2022-06-28 10:20 | MHC.PT.EP ---
[facility] [place] Office [place] Office [place] Office [address] Miko Dubois [address] [phone] F: [phone] F: [phone] F: [phone] F: [phone] Physical Therapy Plan of Care Date of Evaluation: Date of Surgery: Diagnosis: This is a 61 yo female presenting to skilled PT with a script for pain in R shoulder. Assessment: This is a 61 yo female presenting to skilled PT with a script for pain in R shoulder. Patient reporting shoulder pain ongoing for about 5 months now and getting worse with time. She does not note any injury. Pain increases with reaching forward, laterally into abduction, behind her with IR and OH/flexion. She is RHD. She reports compensating to avoid pain; examples include using L hand, avoiding laying on R side. She also reports pain with getting dressed, housecleaning above head. No issues prior that were noted however did have cortisone injections in the 80's on the same side for bursitis. Denies numbness or tingling, denies radiating symptoms and denies neck pain. Pain is located anterior/superior R shoulder GHJ and radiates to deltoid laterally but does not enter the bicep area or elbow. Assessment reveals pain that ranges from 0-7/10. Patient demos decreased shoulder ROM, strength of RTC and scapular stabilizers, and rounded posture and forward head. She denies TTP, radiating or radicular pain or neck pain. Based on functional limitations, impaired QOL and decreased pain tolerance patient is a good candidate for skilled PT 2x/wk for 6wks. Frequency and Duration: The patient will be seen 2x/wk for 6wks Short Term Goals: I in HEP Improve ROM equal and nonpainful to L UE in 2wks Improve pain to no more than a 3/10 at the worst in 2wks Penitentiary Goals: Report 90% improvement in QOL in 5wks Improve SPADI by 10 points in 5wks Improve strength by at least 1 grade in 5wks Treatment Plan: Modalities to reduce pain, spasms and effusion. Manual therapy to restore motion and function. Therapeutic exercise to improve strength and flexibility. Neuromuscular re-education for posture and balance. Therapeutic activities to return to functional activities of daily living. Electronically signed by: Alesha Guaman PT Please sign and return to therapist. Thank you for your referral.
--- NOTE | 2022-08-21 09:34 | MHC.PT.DC ---
[facility] [place] Office [place] Office [place] Office [address] [phone] F: [phone] F: [phone] F: [phone] F: [phone] Physical Therapy Discharge Report Diagnosis: This is a 61 yo female presenting to skilled PT with a script for pain in R shoulder. Date of Surgery: Date of Evaluation: 06/28/22 Date of Discharge: 08/21/22 Treatments to Date: 6 Cancellations to Date: 0 No Shows to Date: 0 Discharge Status: Achieved Goals Improved Function Independent with HEP Patient Elected to Stop Discharge Summary: 08/01/2022: Patient reporting overall there has been some relief with PT but still has some catching with certain movements and achiness with ROM limitation awareness. She demos 170 degs flexion, 170 abd, 80 ER and 35 IR (both in 90 degs abd). Demos good compliance with HEP and has a program that she can be I with at home on her own. Educated her to call our office as needed in the future otherwise DC to HEP. Electronically signed by: Alesha Guaman PT Please sign and return to therapist. Thank you for your referral.
== END 2022-08-21 09:34 | disposition home or self-care (01) ==
LOC: HO.PTCHIC 14:00
PROVIDERS: PCP Internal Medicine; Visit Provider Internal Medicine
DX: M25.511 Pain in right shoulder (principal)
CPT/HCPCS: 97110; 97140; 97161; 97162

== ENCOUNTER 2022-11-06 14:52 | Outpatient (REF) | payer OTHER, SELFPAY ==
--- NOTE | ~2022-11-06 | MR_ITS ---
EXAMINATION: MR SHOULDER WITHOUT CONTRAST, RIGHT CLINICAL INFORMATION: Right shoulder pain COMPARISON: None available. Teres minor is intact. TECHNIQUE: MRI of the shoulder without contrast was performed on a high-field scanner. FINDINGS: ROTATOR CUFF: Mild supraspinatus tendinosis. Suspected small intrasubstance tear in the posterior fibers measuring 5 mm ML. Mild infraspinatus tendinosis. Small low T1/low T2 signal focus in the distal infraspinatus fibers could reflect focus of calcific tendinitis, could potentially correlate with the x-ray findings. The focus of calcification seen on the previous x-ray of 06/26/2022 is not clearly evident on MRI. Teres minor, subscapularis are intact. No muscle atrophy or fatty infiltration. BICEPS: Intact CORACOACROMIAL ARCH: The undersurface of the acromion is curved with no subacromial spur. Moderate acromioclavicular arthritis. Small fluid in the subacromial subdeltoid space. LABRUM/CAPSULE: No displaced labral tear is identified. Inferior capsule is grossly intact. GLENOHUMERAL JOINT/MARROW: No fracture. No suspicious marrow signal changes. Small joint fluid. No definite loose bodies identified. MR/MR shoulder RT wo con IMPRESSION: 1. Mild supraspinatus tendinosis. Suspected small 5 mm question intrasubstance tear in the posterior fibers. 2. Mild infraspinatus tendinosis. The previously seen focus of calcification superior to the greater tuberosity is not clearly evident on MRI. Small focus of low T1/low T2 signal in the distal fibers could reflect focus of calcific tendinitis, but this is not definitive. Recommend repeat radiographs for further evaluation. 3. Moderate acromioclavicular arthritis. Mild subacromial subdeltoid bursitis. 4. Additional findings and details as above.
== END 2022-11-06 14:53 | disposition home or self-care (01) ==
LOC: HO.MRI 14:52
PROVIDERS: PCP Internal Medicine; Visit Provider Internal Medicine
DX: M12.811 Other specific arthropathies, not elsewhere classified, right shoulder (principal)
CPT/HCPCS: 73221

== ENCOUNTER 2022-11-29 09:53 | Outpatient (AMB) | payer OTHER, SELFPAY ==
--- NOTE | 2022-11-29 09:56 | MHC.OFFVIS ---
Intake Vital Signs 11/29/22 10:00 Height 5 ft 3 in Weight 182 lb BMI 32.2 Intake Visit Reasons: Fruit Packer Face And Fill- RT ROTATOR CUFF MRI done Intake Note: Mariely is a 62 year old right hand dominant female who presents today as a new patient with complaints of right shoulder pain. Patient had an MRI done @ [facility]. Patient reports that she has discomfort with ROM particularly lateral reaching and behind the back . Denies injury. Denies numbness and tingling. Allergies No Known Allergies Allergy (Verified 11/29/22 09:56) HPI Fruit Packer Face And Fill- RT ROTATOR CUFF MRI done HPI Details Mariely is a 62 year old woman who presents for an MRI review of her right shoulder pain. She works at [employer]. She complains of pain in her right shoulder, worse with ROM and reaching activities. She denies any pain at rest or at night, unless she is lying on her right side. She says she is able to modify her activities to manage her pain She says her pain has been present for ~9 months now, and she completed some PT ~5-6 months ago which helped her somewhat until she overextended reaching and worsened her pain. [facility] Medical History Diabetes Elevated cholesterol GERD (gastroesophageal reflux disease) HTN (hypertension) Surgical History History of colposcopy Hx of colonoscopy Hx of excision of lamina of cervical vertebra for decompression of spinal cord Hx of gastric bypass Hx of tonsillectomy Family History Father No problems noted. Mother Diabetes Valvular heart disease CVA (cerebral vascular accident) Social History (Updated 11/29/22 @ 09:59 by Mable Dow CMA) Household Members Other:: Housing: House Alcohol intake: never Patient Tobacco Use Status: Never used Tobacco e-Cigarette/Vaping Use: Never Used service: No Current occupational status: employed Current occupation: Nurse - [employer] Cognitive needs: No Hearing needs: No Vision needs: Yes Review of Systems Const All systems reviewed & are unremarkable except as noted in HPI and below Physical Exam Vital Signs: BMI result Body Mass Index 32.2 Const General: no acute distress, alert and awake Orientation/consciousness: patient oriented x3 HEENT Head: Yes normocephalic and Yes atraumatic Eyes EOM: EOMs intact bilaterally Resp Effort & Inspection: normal respiratory effort and able to speak in complete sentences Cardio Jugular venous distension: no JVD Skin General skin exam: turgor normal Rashes: no rashes Neuro General: patient oriented x3 Extrem Other: Right Shoulder: - empty can + H&N - provocative tests mild stiffness with ER to T12 Psych Appearance: grossly normal Affect: normal affect Attitude: cooperative Office Procedures Joint Injection/Drain Joint Injection/Drain Details: Injected 1 mL of Decadron and 3 mL 1% lidocaine and 3 mL of 0.25% Marcaine. Site was prepped using aseptic technique. Patient tolerated the procedure well. Primary Site: right shoulder Approach Used: posterolateral Coding 39084 - Large joint Procedure code (CPT) selection complete Results Reviewed Results Reviewed: 11/29/22 10:16 BUPivacaine MPF 0.25 % [Sensorcaine-MPF 0.25% 10 ML] 10 ml .ROUTE .STK-MED ONE Lidocaine HCl 2 % MPF [Xylocaine 2 % MPF] 5 ml .ROUTE .STK-MED ONE dexAMETHasone sod phosphate [Decadron] 4 mg .ROUTE .STK-MED ONE I personally reviewed relevant MR images 1. Mild supraspinatus tendinosis. Suspected small 5 mm question intrasubstance tear in the posterior fibers. 2. Mild infraspinatus tendinosis. The previously seen focus of calcification superior to the greater tuberosity is not clearly evident on MRI. Small focus of low T1/low T2 signal in the distal fibers could reflect focus of calcific tendinitis, but this is not definitive. Recommend repeat radiographs for further evaluation. 3. Moderate acromioclavicular arthritis. Mild subacromial subdeltoid bursitis. 4. Additional findings and details as above. Assessment & Plan Assessment & Plan (1) Rotator cuff arthropathy of right shoulder: Code(s): M12.811 - Other specific arthropathies, not elsewhere classified, right shoulder Plan: This is a 62 year old woman with right RTC impingement syndrome, with a small intrasubstance tear. She has pain primarily with lateral reaching and behind back activities, but denies any pain at rest or at night. She had some relief from PT in the past, an denies any recent injections. I discussed her diagnosis and treatment options. I recommend bo-scapular strengthening & activity modification. I injected her right shoulder today, which she tolerated well. She will continue PT and let me know if she worsens. (2) DM type 2 (diabetes mellitus, type 2): Comment: A1c is 5.4, decrease metformin to 500 mg twice a day and continue Ozempic, ADA diet regular physical activity, follow-up in 3 months with a fasting labs before Code(s): E11.9 - Type 2 diabetes mellitus without complications Plan: Well controlled diabetic but informed of the hyperglycemic effects of steroids. Plan Scribed for Dong Orellana MD by Cooper Hines, medical radiation therapist, on 11/29/22 at 10:10 AM, EST. Coding Level of Care Code New Pt Level 4 (34170) Diagnoses Rotator cuff arthropathy of right shoulder M12.811 DM type 2 (diabetes mellitus, type 2) E11.9 CPT Codes Coding - 27948 Large joint: 44484 - Large joint ([id number])
[2022-11-29 10:00] VITALS: BMI 32.2
== END 2022-11-29 11:57 | disposition home or self-care (01) ==
PROVIDERS: PCP Internal Medicine; Visit Provider Orthopaedic Surgery
DX: M12.811 Other specific arthropathies, not elsewhere classified, right shoulder (principal)
CPT/HCPCS: 20610; 99204

== ENCOUNTER → 2022-11-29 09:53 | Outpatient (BNVA) | payer OTHER, SELFPAY | PROVIDERS: PCP Internal Medicine; Visit Provider Orthopaedic Surgery | DX: M12.811 Other specific arthropathies, not elsewhere classified, right shoulder (principal); E11.9 Type 2 diabetes mellitus without complications | CPT/HCPCS: 20610; J1100 ==

== ENCOUNTER 2022-12-11 06:47 | Outpatient (REF) | payer OTHER, SELFPAY ==
[2022-12-11 12:13] LABS: MANUAL DIFF FLAG NO
[2022-12-11 12:27] LABS: Basophils Absolute Auto 0.1 X10*3/uL (0.0-0.2); Basophils Percent Auto 1.3 % (0-2); Eosinophils Absolute Auto 0.1 X10*3/uL (0.0-0.4); Eosinophils Percent Auto 2.3 % (0-4); Hematocrit 41.7 % (37.0-47.0); Hemoglobin 13.6 g/dl (12.0-16.0); Imm Gran Abs Auto 0.02 X10*3/uL (0.00-0.03); Imm Gran Pct Auto 0.3 % (0.0-0.4); Lymphocytes Absolute Auto 1.5 X10*3/uL (1.2-4.9); Lymphocytes Percent Auto 24.1 % (20-40); Mean Corpuscular HGB Conc 32.6 g/dl (31.0-35.0); Mean Corpuscular Hemoglobin 28.4 pg (27.0-33.0); Mean Corpuscular Volume 87.1 fL (80.0-98.0); Mean Platelet Volume 10.5 fL (9.4-12.3); Monocytes Absolute Auto 0.4 X10*3/uL (0.1-1.2); Monocytes Percent Auto 6.5 % (2-11); Neutrophils Percent Auto 65.5 % (45-73); Platelet Count 236 X10*3/uL (160-400); Red Blood Count 4.79 X10*6/uL (4.20-5.50); Red Cell Distribution Width 13.7 % (11.0-16.0); White Blood Count 6.1 X10*3/uL (4.8-10.8)
[2022-12-11 12:53] LABS: Estimated Average Glucose 120 mg/dL; Hemoglobin A1c % 5.8 % (<6.0)
[2022-12-11 12:55] LABS: Alanine Aminotransferase 16 U/L (0-31); Albumin Level 3.9 g/dL (3.5-5.0); Alkaline Phosphatase 46 U/L (39-117); Anion Gap 11 (12-20); Aspartate Amino Transferase 20 U/L (5-31); Bilirubin Total 0.5 mg/dL (0.0-1.0); Blood Urea Nitrogen 13 mg/dL (9-16); Calcium 9.4 mg/dL (8.4-10.2); Carbon Dioxide 29 mmol/L (22-29); Chloride 103 mmol/L (96-108); Cholesterol 146 mg/dL (<200); Estimated Glomerular Filt Rate > 60; Glucose Fasting 96 mg/dL (60-99); HDL Cholesterol 53 mg/dL (>40); Iron 70 mcg/dL (30-160); LDL Cholesterol Calculated 76 mg/dL (<100); Percent Iron Saturation 23 % (15-50); Potassium 4.8 mmol/L (3.3-5.1); Sodium 138 mmol/L (135-145); Total Iron Binding Capacity 302 mcg/dL (228-428); Total Protein 6.4 g/dL (6.5-8.0); Triglycerides 88 mg/dL (<150); Unsaturated Iron Binding 232 ug/dL
[2022-12-11 13:05] LABS: Creatinine Urine 89.03 mg/dL; Microalbum/Creatinine Ratio Ur 7.8 ug/mg cr (<30)
[2022-12-11 13:17] LABS: Vitamin D 25-OH Total 42.9 ng/mL (>30)
[2022-12-11 13:31] LABS: Folate 14.5 ng/mL (> or = 4.0); Vitamin B12 274 pg/mL (200-900)
== END 2022-12-11 06:48 | disposition home or self-care (01) ==
LOC: HO.HMGCLDS 06:47
PROVIDERS: PCP Internal Medicine; Visit Provider Internal Medicine
DX: I10 Essential (primary) hypertension (principal); E78.5 Hyperlipidemia, unspecified; E11.9 Type 2 diabetes mellitus without complications; E55.9 Vitamin D deficiency, unspecified; E61.1 Iron deficiency
CPT/HCPCS: 36415; 80053; 80061; 82043; 82306; 82570; 82607; 82746; 83036; 83540; 85025

== ENCOUNTER 2022-12-20 12:31 | Outpatient (AMB) | payer OTHER, SELFPAY ==
--- NOTE | 2022-12-20 12:32 | A.OFFPC_ITS ---
Vital Signs 12/20/22 12:33 Height 5 ft 3 in Weight 184 lb BMI 32.6 BP 124/66 Blood Pressure Location Lt brachial Position Sitting Pulse 72 Pulse Source Pulse Oximeter Pulse Oximetry (%) 98 Oxygen Delivery Method Room Air Intake Visit Reasons: Diabetes followup Allergies No Known Allergies Allergy (Verified 12/20/22 12:34) Medication List - Last Reconciled 12/20/22 by Soni Marie MD blood-glucose sensor (Noise[employer]Style Sandro 3 Sensor device) As directed cholecalciferol (vitamin D3) 25 mcg PO DAILY docusate sodium 100 mg PO BID ferrous sulfate ER 143 mg PO DAILY [fish oil PO .QD] lancets (FreeStyle Lancets) As directed lisinopril 20 mg PO DAILY loratadine 10 mg PO DAILY metformin 1,000 mg PO BID pantoprazole 20 mg PO DAILY rosuvastatin (Crestor) 10 mg PO DAILY semaglutide (Ozempic) 1 mg (0.75 mL) subcut QWEEK Tobacco use date assessed: 12/20/22 Dental Screening Dental Screen Date: 12/20/22 Did you have a dental visit in the last 12 months?: Yes Did you have a dental problem in the last 6 months where you did not have access to dental care?: No Was dental information given to patient?: Patient has dentist HPI Diabetes followup HPI Details Pt presents for the follow-up of type 2 diabetes hypertension hyperlipidemia. She complains of numbness and itchy sensation on the left lateral thigh worse at the end of the day also at night for 2 months. Patient denies any weakness or numbness in extremities or lower back pain or hip pain. She walks most days of the week and rides a bike at least once a week. [facility] Medical History Diabetes Elevated cholesterol GERD (gastroesophageal reflux disease) HTN (hypertension) Surgical History Hx of tonsillectomy Hx of gastric bypass History of colposcopy Hx of excision of lamina of cervical vertebra for decompression of spinal cord Hx of colonoscopy Family History Father No problems noted. Mother Diabetes Valvular heart disease CVA (cerebral vascular accident) Social History (Updated 11/29/22 @ 09:59 by Mable Dow [facility]) Household Members Other:: Housing: House Alcohol intake: never Patient Tobacco Use Status: Never used Tobacco e-Cigarette/Vaping Use: Never Used service: No Current occupational status: employed Current occupation: [employer] Cognitive needs: No Hearing needs: No Vision needs: Yes Questionnaire PHQ-9 Over the last 2 weeks, how often have you been bothered by any of the following problems? 1. Little interest or pleasure in doing things: not at all 2. Feeling down, depressed, or hopeless: not at all 3. Trouble falling or staying asleep, or sleeping too much: not at all 4. Feeling tired or having little energy: not at all 5. Poor appetite or overeating: not at all 6. Feeling bad about yourself - or that you are a failure or have let yourself or your family down: not at all 7. Trouble concentrating on things, such as reading the newspaper or watching television: not at all 8. Moving or speaking so slowly that other people could have noticed. Or the opposite - being so fidgety or restless that you have been moving around a lot more than usual: not at all 9. Thoughts that you would be better off or of hurting yourself in some way: not at all Total score: 0 Depression Screening Interpretation: Negative Source: Developed by Drs. Rober Padilla, Isis Lozano, Olvin Rosas and colleagues, with an educational moriah from [employer]. Thrive Questionnaire Date Thrive assessed: 12/20/22 I am a: Patient What is your living situation today?: I have a steady place to live Within the past 12 months, did the food you bought not last and you didn't have the money to get more?: Never true Within the past 12 months, did you worry whether your food would run out before you got money to buy more?: Never true Do you have trouble paying for medicines?: No Do you have trouble getting transportation to medical appointments?: No Do you have trouble paying your heating and electricity bill?: No Do you have trouble taking care of your child, family member or friend?: No Do you have trouble with day-to-day activities such as bathing, preparing meals, shopping, managing finances, etc.?: No Are you currently unemployed and looking for a job?: No Are you interested in more education?: No Please select the resources that you would like help with: None Currently or been in a relationship where the following occur: no concerns reported ANGLE-7 AMB Questionnaire ANGLE-7 Date ANGLE - 7 assessed: 12/20/22 Feeling nervous, anxious, or on edge: 0 = Not at all Not being able to stop or control worryin = Not at all Worrying too much about different things: 0 = Not at all Trouble relaxin = Not at all Being so restless that it is hard to sit still: 0 = Not at all Becoming easily annoyed or irritable: 0 = Not at all Feeling afraid as if something awful might happen: 0 = Not at all Total ANGLE-7 score (0-4 normal; 5-9 mild; 10-14 moderate; 15-21 severe): 0 Source: Developed by Drs. Rober Padilla, Isis Lozano, Olvin Rosas and colleagues, with an educational moriah from [employer]. Review of Systems Const All systems reviewed & are unremarkable except as noted in HPI and below Reports no additional complaints Eyes Reports no additional complaints ENT Reports no additional complaints Card Reports no additional complaints Resp Reports no additional complaints GI Reports no additional complaints Reports no additional complaints Physical exam (Primary Care) Vital Signs: Last Vital Signs Pulse 72 12/20/22 12:33 BP 124/66 12/20/22 12:33 Pulse Ox 98 12/20/22 12:33 Oxygen Delivery Method Room Air 12/20/22 12:33 BMI result Body Mass Index 32.6 Tobacco/Smoking Status: Tobacco use Status Tobacco use date assessed 12/20/22 12/20/22 12:37 Patient Tobacco Use Status Never used Tobacco 12/20/22 12:37 e-Cigarette/Vaping Use Never Used 12/20/22 12:37 PHQ-9: PHQ-9 Score PHQ-9: Total score 0 12/20/22 12:37 Depression Screening Interpretation: Negative Thrive Assessment: Date of Thrive Assessment Date Thrive assessed 12/20/22 12/20/22 12:37 Currently or been in a relationship where the following occur: no concerns reported Const General: no acute distress HENMT Head: Yes normal to inspection Ears: hearing grossly normal bilaterally Face and sinus: Yes normal facial exam Throat: Yes posterior oropharynx normal Eyes General: appearance normal, both eyes and all related structures Neck Neck: Yes no lymphadenopathy and Yes supple Resp Effort & Inspection: normal respiratory effort Auscultation: clear to auscultation bilaterally Cardio Rhythm: regular rhythm Heart sounds: S1 normal heart sound present and S2 normal heart sound present GI Inspection: Yes normal to inspection Palpation (GI): Soft to palpation Percussion: Yes normal to percussion Auscultation: normal bowel sounds Assessment and Plan Assessment & Plan (1) Iron deficiency: Code(s): E61.1 - Iron deficiency Plan: Monitor iron level off the iron supplement (2) DM type 2 (diabetes mellitus, type 2): Comment: A1c is 5.4, decrease metformin to 500 mg twice a day and continue Ozempic, ADA diet regular physical activity, follow-up in 3 months with a fasting labs before Code(s): E11.9 - Type 2 diabetes mellitus without complications Plan: A1c is 5.7, patient restarting taking metformin 1000 mg twice a day because of higher fasting blood glucose readings. Ozempic will be increased to 2 mg .ADA diet regular physical activity discussed with the patient . she will follow-up in 3 months with a fasting labs before (3) HTN (hypertension): Code(s): I10 - Essential (primary) hypertension Plan: Continue lisinopril (4) Hyperlipidemia: Comment: Change simvastatin to Crestor 10 mg a day Code(s): E78.5 - Hyperlipidemia, unspecified Plan: Continue Crestor (5) Vitamin D deficiency: Code(s): E55.9 - Vitamin D deficiency, unspecified Plan: Check vitamin-D and continue supplement (6) Meralgia paresthetica of left side: Code(s): G57.12 - Meralgia paresthetica, left lower limb Plan: Supportive care discussed with the patient. Gabapentin was offered but patient declined Orders: Orders Complete Blood Count Auto Diff 3 Months E11.9 - Type 2 diabetes mellitus without complications, E55.9 - Vitamin D deficiency, unspecified, E61.1 - Iron deficiency, E78.5 - Hyperlipidemia, unspecified, I10 - Essential (primary) hypertension Microalbumin, Random (w Creat) 3 Months E11.9 - Type 2 diabetes mellitus without complications, E55.9 - Vitamin D deficiency, unspecified, E61.1 - Iron deficiency, E78.5 - Hyperlipidemia, unspecified, I10 - Essential (primary) hypertension Comprehensive [place]. Panel Fast 3 Months E11.9 - Type 2 diabetes mellitus without complications, E55.9 - Vitamin D deficiency, unspecified, E61.1 - Iron deficiency, E78.5 - Hyperlipidemia, unspecified, I10 - Essential (primary) hypertension Lipid Panel 3 Months E11.9 - Type 2 diabetes mellitus without complications, E55.9 - Vitamin D deficiency, unspecified, E61.1 - Iron deficiency, E78.5 - Hyperlipidemia, unspecified, I10 - Essential (primary) hypertension Vitamin B12 and Folate 3 Months E11.9 - Type 2 diabetes mellitus without complications, E55.9 - Vitamin D deficiency, unspecified, E61.1 - Iron deficiency, E78.5 - Hyperlipidemia, unspecified, I10 - Essential (primary) hypertension Hemoglobin A1c 3 Months E11.9 - Type 2 diabetes mellitus without complications, E55.9 - Vitamin D deficiency, unspecified, E61.1 - Iron deficiency, E78.5 - Hyperlipidemia, unspecified, I10 - Essential (primary) hypertension IRON PROFILE 3 Months E11.9 - Type 2 diabetes mellitus without complications, E55.9 - Vitamin D deficiency, unspecified, E61.1 - Iron deficiency, E78.5 - Hyperlipidemia, unspecified, I10 - Essential (primary) hypertension Medications: New semaglutide (Ozempic) 2 mg (0.75 mL) subcut QWEEK 9 mL 2RF Discontinued flash glucose sensor (FreeStyle Sandro 14 Day Sensor kit) Discontinued Reason: Patient no longer taking As directed 6 ea 3RF semaglutide (Ozempic) Discontinued Reason: Doctor's Order 1 mg (0.75 mL) subcut QWEEK 9 mL 3RF Coding Level of Care Code Est Pt Level 4 (44895) Diagnoses Iron deficiency E61.1 DM type 2 (diabetes mellitus, type 2) E11.9 HTN (hypertension) I10 Hyperlipidemia E78.5 Vitamin D deficiency E55.9 Meralgia paresthetica of left side G57.12
[2022-12-20 12:33] VITALS: BP 124/66; PULSE 72; O2SAT 98; BMI 32.6
== END 2022-12-20 13:25 | disposition home or self-care (01) ==
PROVIDERS: PCP Internal Medicine; Visit Provider Internal Medicine
DX: E61.1 Iron deficiency (principal); E11.9 Type 2 diabetes mellitus without complications; I10 Essential (primary) hypertension; E78.5 Hyperlipidemia, unspecified; E55.9 Vitamin D deficiency, unspecified; G57.12 Meralgia paresthetica, left lower limb
CPT/HCPCS: 99214

== ENCOUNTER 2023-01-11 09:02 | Outpatient (AMB) | payer OTHER, SELFPAY ==
--- NOTE | 2023-01-11 08:58 | MHC.OFFWIV ---
Intake Vital Signs 01/11/23 09:01 Height 5 ft 3 in Weight 83.915 kg BMI 32.8 BP 120/60 Blood Pressure Location Lt brachial Position Sitting Pulse 80 Pulse Oximetry (%) 99 Oxygen Delivery Method Room Air Intake Visit Reasons: EP, bite on chin by dog Intake Note: Pt is here today c/o her dog bite on chin Patient Tobacco Use Status: Never used Tobacco Allergies No Known Allergies Allergy (Verified 01/11/23 09:00) Do you need a note to return to daycare/school/sports/work: No HPI HPI Comments History of Present Illness Details 904 62-year-old female presents with dog bite to the right chin region, dog bite occurred yesterday. This is patient's dog. Dog was acting strange, patient pick dog up to comforted, dog bit patient, patient up-to-date on immunizations including rabies. Patient's last tetanus shot was in 2017 does not want a new 1 today. Patient reports yesterday the puncture site was losing however today it is now scabbed over she is noted overlying redness, bruising. Denies fevers, chills. Physical examination with a puncture wound to the right side of chin with overlying erythema, ecchymosis and mild induration in the center. This is not a through and through bite. Likely puncture wound secondary to dog bite with overlying infection/cellulitis. No signs of abscess at this time, necrotizing infection. Plan will start patient on Augmentin. Will send Diflucan as patient has history of getting yeast infections after antibiotic use. Educated patient on diagnosis and treatment plan, answered all question, patient verbalizes understanding. At this time patient will be discharged home, advised to return with new or worsening symptoms. Educated on worrisome signs and symptoms and when to return. At this time I feel comfortable discharge home. [facility] Medical History GERD (gastroesophageal reflux disease) Diabetes Elevated cholesterol HTN (hypertension) Surgical History Hx of tonsillectomy Hx of gastric bypass History of colposcopy Hx of excision of lamina of cervical vertebra for decompression of spinal cord Hx of colonoscopy Family History Father No problems noted. 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[employer] Cognitive needs: No Hearing needs: No Vision needs: Yes Review of Systems Const Details: Constitutional : No Weight loss, No Fever, No Chills, No Fatigue, No Malaise ENT/Mouth : No sore throat, No Rhinorrhea Eyes: No Eye Pain, No Swelling, No Redness Cardiovascular : No Chest Pain, No SOB, No Dyspnea on Exertion, No Orthopnea, No Edema, No Palpitations Respiratory : No Cough, No Sputum, No Wheezing Gastrointestinal : No Nausea, No Vomiting, No Diarrhea, No Constipation, No abdominal Pain, No Hematochezia, No Melena Genitourinary : No Dysuria, No Urinary Frequency, No Hematuria, Musculoskeletal : No joint pain, No Myalgias, No Joint Swelling Skin : + Skin Lesions, No rash Neuro : No Weakness, No Numbness, No Dizziness, No Headache Psych : No Anxiety/Panic, No Depression All other systems reviewed and are negative All systems reviewed & are unremarkable except as noted in HPI and below Physical Exam Vital Signs: vss Appearance: Alert.? Oriented X3.? No acute distress.? Head: Normocephalic, atraumatic, no step-offs or deformities Eyes: Pupils equal, round and reactive to light.? CVS: Normal heart rate and rhythm.? Pulses normal.? Respiratory: No respiratory distress.? Breath sounds normal.? Skin: Skin warm and dry.? Normal skin color.? Normal skin turgor.?+ puncture wound to the right side of chin with overlying erythema, ecchymosis and mild induration in the center. This is not a through and through bite. Extremities: No lower extremity edema.? No calf ttp. 5/5 strength to bilateral upper and lower extremities Assessment & Plan Assessment & Plan (1) Dog bite: Code(s): W54.0XXA - Bitten by dog, initial encounter Plan Take your medications as prescribed. If you were prescribed antibiotics today, it is important that you take your medication to their entirety, do not skip any doses, do not finish them early. Follow-up with your primary care provider this week. Return to the emergency department with new or worsening symptoms. Such as fevers, chills, chest pain, shortness of breath, nausea, vomiting, dizziness, headache, vision changes, lethargy In case of emergency call 911 Medications: New amoxicillin-pot clavulanate 875-125 mg 1 tab PO BID 20 tabs 0RF 10 days fluconazole 150 mg PO Q3D 2 tabs 0RF 2 doses Coding Level of Care Code Est Pt Level 3 (93576) Diagnoses Dog bite W54.0XXA
[2023-01-11 09:01] VITALS: BP 120/60; PULSE 80; O2SAT 99; BMI 32.8
== END 2023-01-11 14:55 | disposition home or self-care (01) ==
PROVIDERS: PCP Internal Medicine; Visit Provider Physician Assistant
DX: S01.80XA Unspecified open wound of other part of head, initial encounter (principal); W54.0XXA Bitten by dog, initial encounter
CPT/HCPCS: 99051; 99213

== ENCOUNTER 2023-05-05 08:00 | Outpatient (AMB) | payer OTHER, SELFPAY ==
--- NOTE | 2023-05-05 08:07 | MHC.OFFWIV ---
Intake Vital Signs 05/05/23 08:09 Height 5 ft 3 in Weight 188 lb BMI 33.3 BP 130/70 Blood Pressure Location Lt brachial Position Sitting Pulse 86 Pulse Source Pulse Oximeter Temp 98.2 F Temp Source Oral Pulse Oximetry (%) 96 Oxygen Delivery Method Room Air Intake Visit Reasons: EP Covid tight cough [id number] Intake Note: pt is here for c/o tight cough, covid pos x3 days Patient Tobacco Use Status: Never used Tobacco Allergies No Known Allergies Allergy (Verified 05/05/23 08:26) Medication List - Last Reconciled 05/05/23 by Mikey Durham MD blood sugar diagnostic (Contour Next Test Strips) test blood sugar twice per day blood-glucose sensor (Massive Analytic G7 Sensor device) As directed to monitor blood sugars cholecalciferol (vitamin D3) 25 mcg PO DAILY docusate sodium 100 mg PO BID ferrous sulfate ER 143 mg PO DAILY [fish oil PO .QD] gabapentin 100 mg PO BEDTIME lisinopril 20 mg PO DAILY loratadine 10 mg PO DAILY metformin 1,000 mg PO BID pantoprazole 20 mg PO DAILY rosuvastatin (Crestor) 10 mg PO DAILY semaglutide (Ozempic) 2 mg (0.75 mL) subcut QWEEK Do you need a note to return to daycare/school/sports/work: Yes HPI EP Covid tight cough [phone] HPI Details 62-year-old female presents to the office for a sick visit. Patient tested positive for COVID last . Over the past few days she is become progressively short of breath with wheezing. She used to have bronchitis in the past but does not have any inhalers. Nonproductive cough. No fevers or chills. [facility] Medical History GERD (gastroesophageal reflux disease) Diabetes Elevated cholesterol HTN (hypertension) Surgical History Hx of tonsillectomy Hx of gastric bypass History of colposcopy Hx of excision of lamina of cervical vertebra for decompression of spinal cord Hx of colonoscopy Family History Father No problems noted. 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[employer] Cognitive needs: No Hearing needs: No Vision needs: Yes Physical Exam Vital Signs: Last Vital Signs Temp 98.2 F 05/05/23 08:09 Pulse 86 05/05/23 08:09 BP 130/70 05/05/23 08:09 Pulse Ox 96 05/05/23 08:09 Oxygen Delivery Method Room Air 05/05/23 08:09 BMI result Body Mass Index 33.3 Const General: cooperative and healthy appearing Nutritional Appearance: well nourished Orientation/consciousness: patient oriented x3 Limitations: no limitations HEENT Head: Yes normal to inspection Eyes General: appearance normal, both eyes and all related structures Neck Neck: Yes normal visual inspection Chest Chest palpation & inspection: normal palpation of entire chest wall Resp Effort & Inspection: normal respiratory effort Neuro General: patient oriented x3 Assessment & Plan Assessment & Plan (1) Acute bronchitis: Code(s): J20.9 - Acute bronchitis, unspecified Plan X-ray images were personally reviewed by me. No infiltrate seen. Prednisone and albuterol called in. If symptoms do not improve to follow-up here. Orders: Orders XR chest 2V Today R05.9 - Cough, unspecified Coding Level of Care Code Est Pt Level 4 (68848) Diagnoses Acute bronchitis J20.9
[2023-05-05 08:09] VITALS: BP 130/70; PULSE 86; TEMP 36.8; O2SAT 96; BMI 33.3
== END 2023-05-05 09:01 | disposition home or self-care (01) ==
PROVIDERS: PCP Internal Medicine; Visit Provider Internal Medicine
DX: J20.9 Acute bronchitis, unspecified (principal)
CPT/HCPCS: 99214

== ENCOUNTER 2023-05-05 08:27 | Outpatient (REF) | payer OTHER, SELFPAY ==
--- NOTE | ~2023-05-05 | XR_ITS ---
EXAMINATION: XR CHEST CLINICAL INFORMATION: Cough, unspecified COMPARISON: None available. TECHNIQUE: 2 views of the chest were obtained. FINDINGS: No significant abnormality is noted involving the heart, lungs, mediastinum or soft tissues. Partial visualization of orthopedic hardware in the lower cervical/upper thoracic spine. XR/XR chest 2V IMPRESSION: No acute cardiopulmonary disease.
== END 2023-05-05 08:28 | disposition home or self-care (01) ==
LOC: HO.HMGCX 08:27
PROVIDERS: PCP Internal Medicine; Visit Provider Internal Medicine
DX: R05.9 Cough, unspecified (principal)
CPT/HCPCS: 71046

== ENCOUNTER 2023-05-24 07:59 | Outpatient (REF) | payer OTHER, SELFPAY | END 2023-05-24 08:00 | disposition home or self-care (01) | LOC: HO.MAMMO 07:59 | PROVIDERS: PCP Internal Medicine; Visit Provider Internal Medicine | DX: Z12.31 Encounter for screening mammogram for malignant neoplasm of breast (principal) | CPT/HCPCS: 77063; 77067 ==

== ENCOUNTER → 2023-05-24 08:00 | Outpatient (BNV) | payer OTHER, SELFPAY | PROVIDERS: PCP Internal Medicine; Visit Provider Radiology Diagnostic Radiology | DX: Z12.31 Encounter for screening mammogram for malignant neoplasm of breast (principal) | CPT/HCPCS: 77063; 77067 ==

== ENCOUNTER 2023-06-04 07:19 | Outpatient (REF) | payer OTHER, SELFPAY ==
[2023-06-04 11:33] LABS: MANUAL DIFF FLAG NO
[2023-06-04 11:38] LABS: Basophils Absolute Auto 0.1 X10*3/uL (0.0-0.2); Basophils Percent Auto 0.9 % (0-2); Eosinophils Absolute Auto 0.2 X10*3/uL (0.0-0.4); Eosinophils Percent Auto 2.8 % (0-4); Hematocrit 40.9 % (37.0-47.0); Hemoglobin 13.3 g/dl (12.0-16.0); Imm Gran Abs Auto 0.01 X10*3/uL (0.00-0.03); Imm Gran Pct Auto 0.2 % (0.0-0.4); Lymphocytes Absolute Auto 1.5 X10*3/uL (1.2-4.9); Lymphocytes Percent Auto 27.6 % (20-40); Mean Corpuscular HGB Conc 32.5 g/dl (31.0-35.0); Mean Corpuscular Hemoglobin 28.2 pg (27.0-33.0); Mean Corpuscular Volume 86.8 fL (80.0-98.0); Mean Platelet Volume 10.2 fL (9.4-12.3); Monocytes Absolute Auto 0.4 X10*3/uL (0.1-1.2); Monocytes Percent Auto 7.5 % (2-11); Neutrophils Absolute Auto 3.3 x10*3/uL (2.0-8.3); Platelet Count 218 X10*3/uL (160-400); Red Blood Count 4.71 X10*6/uL (4.20-5.50); Red Cell Distribution Width 13.2 % (11.0-16.0); White Blood Count 5.3 X10*3/uL (4.8-10.8)
[2023-06-04 11:41] LABS: Appearance Urine Clear; Color Urine Yellow; Glucose Urine UA Negative (Negative); Leukocyte Esterase Urine Trace (Negative); Nitrite Urine Negative (Negative); PH 6.5 (5.0-9.0); Specific Gravity - Urine <= 1.005 (1.005-1.025); UMIC TRIGGER UA YES; Urine Blood Trace (Negative); Urine Ketones Negative (Negative); Urine Protein Negative (Neg-Trace)
[2023-06-04 11:45] LABS: Bacteria Urine None Seen (None Seen); Hyaline Casts Urine 0-2 /LPF (0-2); RBC Urine 0-2 /HPF (0-2); Squamous Epithelial Cell Urine 0-2 /HPF (0-2); WBC Urine 0-5 /HPF (0-5)
[2023-06-04 12:22] LABS: Alanine Aminotransferase 16 U/L (0-31); Alkaline Phosphatase 35 U/L (39-117); Anion Gap 11 (12-20); Aspartate Amino Transferase 18 U/L (5-31); Bilirubin Total 0.5 mg/dL (0.0-1.0); Blood Urea Nitrogen 11 mg/dL (9-16); Calcium 9.5 mg/dL (8.4-10.2); Carbon Dioxide 30 mmol/L (22-29); Chloride 102 mmol/L (96-108); Cholesterol 141 mg/dL (<200); Estimated Glomerular Filt Rate > 60; Glucose Fasting 88 mg/dL (60-99); HDL Cholesterol 57 mg/dL (>40); Iron 79 mcg/dL (30-160); LDL Cholesterol Calculated 67 mg/dL (<100); Percent Iron Saturation 26 % (15-50); Potassium 4.4 mmol/L (3.3-5.1); Sodium 139 mmol/L (135-145); Total Iron Binding Capacity 307 mcg/dL (228-428); Total Protein 6.6 g/dL (6.5-8.0); Triglycerides 88 mg/dL (<150); Unsaturated Iron Binding 228 ug/dL
[2023-06-04 12:24] LABS: Vitamin D 25-OH Total 43.5 ng/mL (>30)
[2023-06-04 12:39] LABS: Creatinine Urine 28.55 mg/dL
[2023-06-04 14:57] LABS: Folate 14.2 ng/mL (> or = 4.0); Vitamin B12 1237 pg/mL (200-900)
[2023-06-04 15:32] LABS: Estimated Average Glucose 117 mg/dL; Hemoglobin A1c % 5.7 % (<6.0)
== END 2023-06-04 07:20 | disposition home or self-care (01) ==
LOC: HO.HMGCLDS 07:19
PROVIDERS: PCP Internal Medicine; Visit Provider Internal Medicine
DX: E55.9 Vitamin D deficiency, unspecified (principal); E61.1 Iron deficiency; I10 Essential (primary) hypertension; E78.5 Hyperlipidemia, unspecified; E11.9 Type 2 diabetes mellitus without complications
CPT/HCPCS: 36415; 80053; 80061; 81001; 82043; 82306; 82570; 82607; 82746; 83036; 83540; 85025

== ENCOUNTER 2023-06-11 13:15 | Outpatient (AMB) | payer OTHER, SELFPAY ==
--- NOTE | 2023-06-11 13:34 | A.OFFPC_ITS ---
Vital Signs 06/11/23 13:36 Height 5 ft 3 in Weight 188 lb BMI 33.3 BP 128/72 Blood Pressure Location Rt brachial Position Sitting Pulse 67 Pulse Source Pulse Oximeter Pulse Oximetry (%) 97 Oxygen Delivery Method Room Air Intake Visit Reasons: Follow up DM Financial Consultant Required: No Information Interpreted: non-clinical & clinical Accompanied by: Self / Same As Patient Allergies No Known Allergies Allergy (Verified 06/11/23 13:40) Medication List - Last Reconciled 06/11/23 by Soni Marie MD albuterol sulfate 90 mcg/actuation (Ventolin HFA) 1 inh inhalation QID PRN blood sugar diagnostic (Contour Next Test Strips) test blood sugar twice per day blood-glucose sensor (Iptune G7 Sensor device) As directed to monitor blood sugars cholecalciferol (vitamin D3) 25 mcg PO DAILY docusate sodium 100 mg PO BID [fish oil PO .QD] fluticasone furoate 100 mcg/actuation (Arnuity Ellipta) 1 inh inhalation DAILY gabapentin 100 mg PO BEDTIME lisinopril 20 mg PO DAILY loratadine 10 mg PO DAILY metformin 1,000 mg PO BID pantoprazole 20 mg PO DAILY rosuvastatin (Crestor) 10 mg PO DAILY semaglutide (Ozempic) 2 mg (0.75 mL) subcut QWEEK Tobacco use date assessed: 06/11/23 Dental Screening Dental Screen Date: 06/11/23 Did you have a dental visit in the last 12 months?: Yes Did you have a dental problem in the last 6 months where you did not have access to dental care?: No Was dental information given to patient?: Patient has dentist HPI HPI Comments History of Present Illness Details Pt presents for physical. type 2 diabetes hyperlipidemia and hypertension are stable. [facility] Medical History GERD (gastroesophageal reflux disease) Diabetes Elevated cholesterol HTN (hypertension) Surgical History Hx of tonsillectomy Hx of gastric bypass History of colposcopy Hx of excision of lamina of cervical vertebra for decompression of spinal cord Hx of colonoscopy Family History Father No problems noted. 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 1. Little interest or pleasure in doing things: not at all 2. Feeling down, depressed, or hopeless: not at all 3. Trouble falling or staying asleep, or sleeping too much: not at all 4. Feeling tired or having little energy: not at all 5. Poor appetite or overeating: not at all 6. Feeling bad about yourself - or that you are a failure or have let yourself or your family down: not at all 7. Trouble concentrating on things, such as reading the newspaper or watching te levision: not at all 8. Moving or speaking so slowly that other people could have noticed. Or the opposite - being so fidgety or restless that you have been moving around a lot more than usual: not at all 9. Thoughts that you would be better off or of hurting yourself in some way: not at all Total score: 0 Depression Screening Interpretation: Negative Depression Screening Done: Yes Source: Developed by Drs. Rober Padilla, Isis Lozano, Olvin Rosas and colleagues, with an educational moriah from [employer]. Thrive Questionnaire Date Thrive assessed: 06/11/23 I am a: Patient What is your living situation today?: I have a steady place to live Within the past 12 months, did the food you bought not last and you didn't have the money to get more?: Never true Within the past 12 months, did you worry whether your food would run out before you got money to buy more?: Never true Do you have trouble paying for medicines?: No Do you have trouble getting transportation to medical appointments?: No Do you have trouble paying your heating and electricity bill?: No Do you have trouble taking care of your child, family member or friend?: No Do you have trouble with day-to-day activities such as bathing, preparing meals, shopping, managing finances, etc.?: No Are you currently unemployed and looking for a job?: No Are you interested in more education?: No THRIVE Score: 0 AUDIT C Alcohol Use Questionnaire (AUDIT-C) 1. How often do you have a drink containing alcohol?: Never 3. How often do you have six or more drinks on one occasion?: Never Total Score: 0 ANGLE-7 AMB Questionnaire NAGLE-7 Date ANGLE - 7 assessed: 06/11/23 Feeling nervous, anxious, or on edge: 0 = Not at all Not being able to stop or control worryin = Not at all Worrying too much about different things: 0 = Not at all Trouble relaxin = Not at all Being so restless that it is hard to sit still: 0 = Not at all Becoming easily annoyed or irritable: 0 = Not at all Feeling afraid as if something awful might happen: 0 = Not at all Total ANGLE-7 score (0-4 normal; 5-9 mild; 10-14 moderate; 15-21 severe): 0 Source: Developed by Drs. Rober Padilla, Isis Lozano, Olvin Rosas and colleagues, with an educational moriah from [employer]. Review of Systems Const All systems reviewed & are unremarkable except as noted in HPI and below Reports no additional complaints Eyes Reports no additional complaints ENT Reports no additional complaints Card Reports no additional complaints Resp Reports no additional complaints GI Reports no additional complaints Reports no additional complaints Physical exam (Primary Care) Vital Signs: Last Vital Signs Pulse 67 06/11/23 13:36 BP 128/72 06/11/23 13:36 Pulse Ox 97 06/11/23 13:36 Oxygen Delivery Method Room Air 06/11/23 13:36 BMI result Body Mass Index 33.3 Tobacco/Smoking Status: Tobacco use Status Tobacco use date assessed 06/11/23 06/11/23 13:44 Patient Tobacco Use Status Never used Tobacco 06/11/23 13:44 e-Cigarette/Vaping Use Never Used 06/11/23 13:44 PHQ-9: PHQ-9 Score PHQ-9: Total score 0 06/11/23 13:47 Depression Screening Interpretation: Negative Thrive Assessment: Date of Thrive Assessment Date Thrive assessed 06/11/23 06/11/23 13:47 Const General: no acute distress HENMT Head: Yes normal to inspection Ears: hearing grossly normal bilaterally Eyes General: appearance normal, both eyes and all related structures Neck Neck: Yes no lymphadenopathy and Yes supple Thyroid: diffusely enlarged Resp Effort & Inspection: normal respiratory effort Auscultation: clear to auscultation bilaterally Cardio Rhythm: regular rhythm Heart sounds: S1 normal heart sound present and S2 normal heart sound present GI Inspection: Yes normal to inspection Palpation (GI): Soft to palpation Percussion: Yes normal to percussion Auscultation: normal bowel sounds Extrem Other: Diabetic foot exam skin is intact monofilament and vibration sensation intact bilaterally General: Yes no clubbing, cyanosis or edema Assessment and Plan Assessment & Plan (1) DM type 2 (diabetes mellitus, type 2): Comment: A1c is 5.4, decrease metformin to 500 mg twice a day and continue Ozempic, ADA diet regular physical activity, follow-up in 3 months with a fasting labs before Code(s): E11.9 - Type 2 diabetes mellitus without complications Plan: A1c is 5.7, continue ADA diet regular physical activity and current medications. (2) HTN (hypertension): Code(s): I10 - Essential (primary) hypertension Plan: Increase lisinopril to 30 mg a day check BMP in 1 week (3) Hyperlipidemia: Comment: Change simvastatin to Crestor 10 mg a day Code(s): E78.5 - Hyperlipidemia, unspecified Plan: Continue Crestor (4) Vitamin B 12 deficiency: Code(s): E53.8 - Deficiency of other specified B group vitamins Plan: Decrease vitamin B12 supplement to twice a week (5) Enlarged thyroid: Code(s): E04.9 - Nontoxic goiter, unspecified Plan: Obtain thyroid ultrasound (6) Annual physical exam: Code(s): Z00.00 - Encounter for general adult medical examination without abnormal findings Plan: Well-balanced diet regular physical activity discussed with the patient. She is up-to-date with the mammogram Pap smear and colonoscopy follow-up in 3 months with a fasting labs before Orders: Orders Lipid Panel 3 Months E11.9 - Type 2 diabetes mellitus without complications, E78.5 - Hyperlipidemia, unspecified, I10 - Essential (primary) hypertension Comprehensive [place]. Panel Fast 3 Months E11.9 - Type 2 diabetes mellitus without complications, E78.5 - Hyperlipidemia, unspecified, I10 - Essential (primary) hypertension Microalbumin, Random (w Creat) 3 Months E11.9 - Type 2 diabetes mellitus without complications, E78.5 - Hyperlipidemia, unspecified, I10 - Essential (primary) hypertension Vitamin B12 3 Months E53.8 - Deficiency of other specified B group vitamins Basic Metabolic Panel 2 Weeks E04.9 - Nontoxic goiter, unspecified, I10 - Essential (primary) hypertension TSH reflex Free T4 1 Week E04.9 - Nontoxic goiter, unspecified Complete Blood Count Auto Diff 3 Months E11.9 - Type 2 diabetes mellitus without complications, E78.5 - Hyperlipidemia, unspecified, I10 - Essential (primary) hypertension Hemoglobin A1c 3 Months E11.9 - Type 2 diabetes mellitus without complications, E78.5 - Hyperlipidemia, unspecified, I10 - Essential (primary) hypertension thyroid Today E04.9 - Nontoxic goiter, unspecified Medications: New lisinopril 30 mg PO DAILY 90 tabs 3RF triamcinolone acetonide 0.025% 1 appl topical DAILY 15 grams 1RF Discontinued lisinopril Discontinued Reason: Doctor's Order 20 mg PO DAILY 90 tabs 3RF Coding Level of Care Code Est Pt Prev Care 40-64y(12545) Diagnoses DM type 2 (diabetes mellitus, type 2) E11.9 HTN (hypertension) I10 Hyperlipidemia E78.5 Vitamin B 12 deficiency E53.8 Enlarged thyroid E04.9 Annual physical exam Z00.00
[2023-06-11 13:36] VITALS: BP 128/72; PULSE 67; O2SAT 97; BMI 33.3
== END 2023-06-11 15:19 | disposition home or self-care (01) ==
PROVIDERS: PCP Internal Medicine; Visit Provider Internal Medicine
DX: E11.9 Type 2 diabetes mellitus without complications (principal); I10 Essential (primary) hypertension; E78.5 Hyperlipidemia, unspecified; E53.8 Deficiency of other specified B group vitamins; E04.9 Nontoxic goiter, unspecified; Z00.00 Encounter for general adult medical examination without abnormal findings
CPT/HCPCS: 99396

== ENCOUNTER 2023-06-18 15:26 | Outpatient (REF) | payer OTHER, SELFPAY ==
--- NOTE | ~2023-06-18 | US_ITS ---
EXAMINATION: US THYROID CLINICAL INFORMATION: Nontoxic goiter, unspecified. COMPARISON: None available. TECHNIQUE: Linear transducer larios-scale and color Doppler examination with attention to the region of the thyroid. FINDINGS: SIZE: Measurements of the thyroid lobes and nodules are given in sagittal, anteroposterior and transverse dimensions respectively. Right Thyroid Lobe: 5.5 x 1.6 x 1.8 cm, volume 8.3 mL. Parenchyma: The gland echotexture is homogeneous. Thyroid vascularity is normal. Left Thyroid Lobe: 6.0 x 1.3 x 2.1 cm, volume 8.6 mL. Parenchyma: The gland echotexture is homogeneous. Thyroid vascularity is normal. Isthmus: 0.3 cm in maximum AP dimension. Estimated total number of nodules greater than or equal to 1 cm: 0. Wel[employer]ne[employer] nodules are described as follows: 1. Location: Right mid lateral. Size: 0.5 x 0.5 x 0.6 cm, volume 0.08 mL. Nodule characteristics: Composition: Solid (2). Echogenicity: Cannot be determined (1). Shape: Not taller than wide (0). Margins: Smooth (0). Echogenic Foci: Macrocalcifications (1). ACR TI-RADS total points: 4 ACR TI-RADS category: 4 NODES: No lymphadenopathy is seen in the tissue surrounding the thyroid gland. US/US thyroid IMPRESSION: 0.6 cm TR4 right nodule. ACR TI-RADS RECOMMENDATION REFERENCE: Ultrasound-guided fine-needle aspiration, followup ultrasound, no further follow up. * TR1 (0 point) and TR2 (2 points): No FNA or follow up. * TR3 (3 points): FNA if more than or equal to 2.5 cm in maximum dimension, followup ultrasound in 1, 3 and 5 years if 1.5 to 2.4 cm in maximum dimension. * TR4 (4-6 points): FNA if more than or equal to 1.5 cm in maximum dimension, followup ultrasound in 1, 2, 3 and 5 years if 1 to 1.4 cm in maximum dimension. * TR5 (more than or equal to 7 points): FNA if more than or equal to 1 cm in maximum dimension, followup ultrasound every year for 5 years if 0.5 to 0.9 cm in maximum dimension. * TR3, TR4 or TR5 nodules that are below the size threshold for followup receive no follow up.
== END 2023-06-18 15:27 | disposition home or self-care (01) ==
LOC: HO.HMGCX 15:26
PROVIDERS: PCP Internal Medicine; Visit Provider Internal Medicine
DX: E04.9 Nontoxic goiter, unspecified (principal)
CPT/HCPCS: 76536

== ENCOUNTER 2023-07-17 07:59 | Outpatient (AMB) | payer OTHER, SELFPAY ==
--- NOTE | 2023-07-17 08:08 | MHC.OFFWIV ---
Intake Vital Signs 07/17/23 08:10 Height 5 ft 3 in BP 112/66 Blood Pressure Location Rt brachial Position Sitting Pulse 66 Pulse Source Pulse Oximeter Pulse Oximetry (%) 99 Oxygen Delivery Method Room Air Intake Visit Reasons: EP Knee pain Intake Note: pt is here for c/o left knee pain, patient states she injured it a few months back but shes been experiencing discomfort Patient Tobacco Use Status: Never used Tobacco Allergies No Known Allergies Allergy (Verified 07/17/23 08:11) Do you need a note to return to daycare/school/sports/work: No HPI HPI Comments History of Present Illness Details 63 y/o female patient who presents to walk in clinic with c/o left knee pain. Pt injured her knee few weeks ago and pain has been getting worse ever since. [facility] Medical History GERD (gastroesophageal reflux disease) Diabetes Elevated cholesterol HTN (hypertension) Surgical History Hx of tonsillectomy Hx of gastric bypass History of colposcopy Hx of excision of lamina of cervical vertebra for decompression of spinal cord Hx of colonoscopy Family History Father No problems noted. 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[employer] Cognitive needs: No Hearing needs: No Vision needs: Yes Review of Systems Const All systems reviewed & are unremarkable except as noted in HPI and below Physical Exam Vital Signs: Last Vital Signs Pulse 66 07/17/23 08:10 BP 112/66 07/17/23 08:10 Pulse Ox 99 07/17/23 08:10 Oxygen Delivery Method Room Air 07/17/23 08:10 Const General: comfortable and no acute distress Orientation/consciousness: patient oriented x3 Neuro General: patient oriented x3 Extrem General: Yes full ROM Left upper extremity: normal to inspection and full ROM Left lower extremity: normal to inspection and knee Details: normal to inspection and normal ROM; no tenderness, no swelling, no crepitus and no unusual warmth Assessment & Plan Assessment & Plan (1) Osteoarthritis: Code(s): M19.90 - Unspecified osteoarthritis, unspecified site Qualifiers: Laterality: left Osteoarthritis location: knee Osteoarthritis type: unspecified Qualified Code(s): M17.12 - Unilateral primary osteoarthritis, left knee Plan: - Rest joint. - Applied Knee Brace - Take medicines as directed. Medications: New meloxicam 15 mg PO DAILY 90 tabs 0RF M17.12 - Unilateral primary osteoarthritis, left knee Coding Level of Care Code Est Pt Level 3 (54186) Diagnoses Osteoarthritis of left knee, unspecified osteoarthritis type M17.12 Laterality: left Osteoarthritis location: knee Osteoarthritis type: unspecified Time Spent (min) 15
[2023-07-17 08:10] VITALS: BP 112/66; PULSE 66; O2SAT 99
== END 2023-07-17 09:05 | disposition home or self-care (01) ==
PROVIDERS: PCP Internal Medicine; Visit Provider Nurse Practitioner Family
DX: M17.12 Unilateral primary osteoarthritis, left knee (principal)
CPT/HCPCS: 99213

== ENCOUNTER 2023-10-11 06:51 | Outpatient (REF) | payer OTHER, SELFPAY ==
[2023-10-11 11:21] LABS: MANUAL DIFF FLAG NO
[2023-10-11 11:26] LABS: Basophils Percent Auto 0.8 % (0-2); Eosinophils Absolute Auto 0.1 X10*3/uL (0.0-0.4); Eosinophils Percent Auto 1.7 % (0-4); Hematocrit 39.9 % (37.0-47.0); Hemoglobin 13.1 g/dl (12.0-16.0); Imm Gran Abs Auto 0.01 X10*3/uL (0.00-0.03); Imm Gran Pct Auto 0.2 % (0.0-0.4); Lymphocytes Absolute Auto 1.4 X10*3/uL (1.2-4.9); Lymphocytes Percent Auto 30.4 % (20-40); Mean Corpuscular HGB Conc 32.8 g/dl (31.0-35.0); Mean Corpuscular Hemoglobin 28.4 pg (27.0-33.0); Mean Corpuscular Volume 86.4 fL (80.0-98.0); Mean Platelet Volume 10.3 fL (9.4-12.3); Monocytes Absolute Auto 0.3 X10*3/uL (0.1-1.2); Monocytes Percent Auto 6.8 % (2-11); Neutrophils Absolute Auto 2.8 x10*3/uL (2.0-8.3); Neutrophils Percent Auto 60.1 % (45-73); Platelet Count 224 X10*3/uL (160-400); Red Blood Count 4.62 X10*6/uL (4.20-5.50); Red Cell Distribution Width 13.3 % (11.0-16.0); White Blood Count 4.7 X10*3/uL (4.8-10.8)
[2023-10-11 11:50] LABS: Alanine Aminotransferase 12 U/L (0-31); Albumin Level 4.1 g/dL (3.5-5.0); Alkaline Phosphatase 37 U/L (39-117); Anion Gap 13 (12-20); Aspartate Amino Transferase 16 U/L (5-31); Bilirubin Total 0.4 mg/dL (0.0-1.0); Blood Urea Nitrogen 10 mg/dL (9-16); Calcium 9.9 mg/dL (8.4-10.2); Carbon Dioxide 28 mmol/L (22-29); Chloride 104 mmol/L (96-108); Cholesterol 140 mg/dL (<200); Estimated Glomerular Filt Rate > 60; Glucose Fasting 88 mg/dL (60-99); Glucose Random 88 mg/dL (60-115); HDL Cholesterol 56 mg/dL (>40); LDL Cholesterol Calculated 68 mg/dL (<100); Potassium 5.2 mmol/L (3.3-5.1); Sodium 140 mmol/L (135-145); Total Protein 6.4 g/dL (6.5-8.0); Triglycerides 83 mg/dL (<150)
[2023-10-11 11:54] LABS: Estimated Average Glucose 114 mg/dL; Hemoglobin A1c % 5.6 % (<6.0)
[2023-10-11 11:59] LABS: Creatinine Urine 70.63 mg/dL; Microalbum/Creatinine Ratio Ur 56.6 ug/mg cr (<30)
[2023-10-11 12:08] LABS: TSH reflex Free T4 1.71 uIU/mL (0.32-4.0)
[2023-10-11 12:47] LABS: Vitamin B12 742 pg/mL (200-900)
== END 2023-10-11 06:52 | disposition home or self-care (01) ==
LOC: HO.HMGCLDS 06:51
PROVIDERS: PCP Internal Medicine; Visit Provider Internal Medicine
DX: E11.9 Type 2 diabetes mellitus without complications (principal); I10 Essential (primary) hypertension; E78.5 Hyperlipidemia, unspecified; E53.8 Deficiency of other specified B group vitamins; E04.9 Nontoxic goiter, unspecified
CPT/HCPCS: 36415; 80048; 80053; 80061; 82043; 82570; 82607; 83036; 84443; 85025

== ENCOUNTER 2023-10-16 12:13 | Outpatient (AMB) | payer OTHER, SELFPAY ==
[2023-10-16 12:27] VITALS: BP 122/76; PULSE 62; O2SAT 99; BMI 32.6
--- NOTE | 2023-10-16 12:27 | MHC.PC.OV ---
Vital Signs 10/16/23 12:27 Height 5 ft 3 in Weight 184 lb BMI 32.6 BP 122/76 Blood Pressure Location Lt brachial Position Sitting Pulse 62 Pulse Source Pulse Oximeter Pulse Oximetry (%) 99 Oxygen Delivery Method Room Air Intake Visit Reasons: Followup BP and DM Intake Note: Pt is here today for a follow up visit. Allergies No Known Allergies Allergy (Verified 10/16/23 13:08) Medication List - Last Reconciled 10/16/23 by Soni Marie MD albuterol sulfate 90 mcg/actuation (Ventolin HFA) 1 inh inhalation QID PRN atorvastatin 40 mg PO DAILY blood sugar diagnostic (Contour Next Test Strips) test blood sugar twice per day blood-glucose sensor ([employer] G7 Sensor device) USE DIRECTED TO MONITOR BLOOD SUGARS cholecalciferol (vitamin D3) 25 mcg PO DAILY docusate sodium 100 mg PO BID [fish oil PO .QD] fluticasone furoate 100 mcg/actuation (Arnuity Ellipta) 1 inh inhalation DAILY gabapentin 100 mg PO BEDTIME lisinopril 40 mg PO DAILY metformin 1,000 mg PO BID pantoprazole 20 mg PO DAILY semaglutide (Ozempic) 0.6667 mg (0.25 mL) subcut QWEEK triamcinolone acetonide 0.025% 1 appl topical DAILY Tobacco use date assessed: 10/16/23 Dental Screening Dental Screen Date: 10/16/23 Did you have a dental visit in the last 12 months?: Yes Did you have a dental problem in the last 6 months where you did not have access to dental care?: No Was dental information given to patient?: Patient has dentist HPI Followup BP and DM HPI Details Patient presents for the follow-up on hypertension type 2 diabetes and hyperlipidemia [facility] Medical History GERD (gastroesophageal reflux disease) Diabetes Elevated cholesterol HTN (hypertension) Surgical History Hx of tonsillectomy Hx of gastric bypass History of colposcopy Hx of excision of lamina of cervical vertebra for decompression of spinal cord Hx of colonoscopy Family History Father No problems noted. Mother Diabetes Valvular heart disease CVA (cerebral vascular accident) Social History Household Members Other:: Housing: House Alcohol intake: never Patient Tobacco Use Status: Never used Tobacco e-Cigarette/Vaping Use: Never Used service: No Current occupational status: employed Current occupation: [employer] Cognitive needs: No Hearing needs: No Vision needs: Yes Questionnaire PHQ-9 Over the last 2 weeks, how often have you been bothered by any of the following problems? 1. Little interest or pleasure in doing things: not at all 2. Feeling down, depressed, or hopeless: not at all 3. Trouble falling or staying asleep, or sleeping too much: not at all 4. Feeling tired or having little energy: not at all 5. Poor appetite or overeating: not at all 6. Feeling bad about yourself - or that you are a failure or have let yourself or your family down: not at all 7. Trouble concentrating on things, such as reading the newspaper or watching television: not at all 8. Moving or speaking so slowly that other people could have noticed. Or the opposite - being so fidgety or restless that you have been moving around a lot more than usual: not at all 9. Thoughts that you would be better off or of hurting yourself in some way: not at all Total score: 0 Depression Screening Interpretation: Negative Depression Screening Done: Yes Source: Developed by Drs. Rober Padilla, Isis Lozano, Olvin Rosas and colleagues, with an educational moriah from [employer]. Thrive Questionnaire Date Thrive assessed: 10/16/23 I am a: Patient What is your living situation today?: I have a steady place to live Within the past 12 months, did the food you bought not last and you didn't have the money to get more?: Never true Within the past 12 months, did you worry whether your food would run out before you got money to buy more?: Never true Do you have trouble paying for medicines?: No Do you have trouble getting transportation to medical appointments?: No Do you have trouble paying your heating and electricity bill?: No Do you have trouble taking care of your child, family member or friend?: No Do you have trouble with day-to-day activities such as bathing, preparing meals, shopping, managing finances, etc.?: No Are you currently unemployed and looking for a job?: No Are you interested in more education?: No Please select the resources that you would like help with: Housing/Assisted Currently or been in a relationship where the following occur: No concerns reported THRIVE Score: 0 AUDIT C Alcohol Use Questionnaire (AUDIT-C) 1. How often do you have a drink containing alcohol?: Never 3. How often do you have six or more drinks on one occasion?: Never Total Score: 0 ANGLE-7 AMB Questionnaire ANGLE-7 Date ANGLE - 7 assessed: 10/16/23 Feeling nervous, anxious, or on edge: 0 = Not at all Not being able to stop or control worryin = Not at all Worrying too much about different things: 0 = Not at all Trouble relaxin = Not at all Being so restless that it is hard to sit still: 0 = Not at all Becoming easily annoyed or irritable: 0 = Not at all Feeling afraid as if something awful might happen: 0 = Not at all Total ANGLE-7 score (0-4 normal; 5-9 mild; 10-14 moderate; 15-21 severe): 0 Source: Developed by Drs. Rober Padilla, Isis Lozano, Olvin Rosas and colleagues, with an educational moriah from [employer]. Review of Systems Const All systems reviewed & are unremarkable except as noted in HPI and below Eyes Reports no additional complaints ENT Reports no additional complaints Card Reports no additional complaints Resp Reports no additional complaints Reports no additional complaints Physical exam (Primary Care) Vital Signs: Last Vital Signs Pulse 62 10/16/23 12:27 BP 122/76 10/16/23 12:27 Pulse Ox 99 10/16/23 12:27 Oxygen Delivery Method Room Air 10/16/23 12:27 BMI result Body Mass Index 32.6 Tobacco/Smoking Status: Tobacco use Status Tobacco use date assessed 10/16/23 10/16/23 13:10 Patient Tobacco Use Status Never used Tobacco 10/16/23 12:27 e-Cigarette/Vaping Use Never Used 10/16/23 12:27 PHQ-9: PHQ-9 Score PHQ-9: Total score 0 07/25/24 13:36 Depression Screening Interpretation: Negative Thrive Assessment: Date of Thrive Assessment Date Thrive assessed 10/16/23 10/16/23 13:10 Currently or been in a relationship where the following occur: No concerns reported Const General: no acute distress HENMT Head: Yes normal to inspection Face and sinus: Yes normal facial exam Eyes General: appearance normal, both eyes and all related structures Resp Effort & Inspection: normal respiratory effort Auscultation: clear to auscultation bilaterally Cardio Rhythm: regular rhythm Heart sounds: S1 normal heart sound present and S2 normal heart sound present GI Inspection: Yes normal to inspection Assessment and Plan Assessment & Plan (1) DM type 2 (diabetes mellitus, type 2): Comment: A1c is 5.4, decrease metformin to 500 mg twice a day and continue Ozempic, ADA diet regular physical activity, follow-up in 3 months with a fasting labs before Code(s): E11.9 - Type 2 diabetes mellitus without complications Plan: A1c is 5.5, continue current medications regular physical activity ADA diet. (2) HTN (hypertension): Code(s): I10 - Essential (primary) hypertension Plan: Increase lisinopril to 40 mg because of worsening microalbuminuria. Hydrochlorothiazide 12.5 every other day will be added for borderline elevated potassium level. Check basic metabolic panel in 1-2 week (3) Postmenopausal: Code(s): Z78.0 - Asymptomatic menopausal state Plan: Check DEXA (4) Hyperlipidemia: Code(s): E78.5 - Hyperlipidemia, unspecified Plan: Cause of worsening microalbuminuria Crestor 10 mg will be changed to 40 mg of atorvastatin. Patient will continue low-cholesterol diet, will check lipid profile in 6 weeks and will follow-up Orders: Orders Comprehensive [place]. Panel Fast 6 Weeks E11.9 - Type 2 diabetes mellitus without complications, I10 - Essential (primary) hypertension Basic Metabolic Panel 2 Weeks I10 - Essential (primary) hypertension XR DEXA axial skeleton Today Z78.0 - Asymptomatic menopausal state Microalbumin, Random (w Creat) 6 Weeks E11.9 - Type 2 diabetes mellitus without complications, I10 - Essential (primary) hypertension Lipid Panel 6 Weeks E11.9 - Type 2 diabetes mellitus without complications, I10 - Essential (primary) hypertension Medications: New lisinopril 40 mg PO DAILY 90 tabs 0RF atorvastatin 40 mg PO DAILY 90 tabs 1RF hydrochlorothiazide 12.5 mg PO DAILY 90 tabs 0RF Discontinued lisinopril Discontinued Reason: Doctor's Order 30 mg PO DAILY 90 tabs 3RF Coding Level of Care Code Est Pt Level 4 (79672) Diagnoses DM type 2 (diabetes mellitus, type 2) E11.9 HTN (hypertension) I10 Postmenopausal Z78.0 Hyperlipidemia E78.5
== END 2023-10-16 14:16 | disposition home or self-care (01) ==
PROVIDERS: PCP Internal Medicine; Visit Provider Internal Medicine
DX: E11.9 Type 2 diabetes mellitus without complications (principal); I10 Essential (primary) hypertension; Z78.0 Asymptomatic menopausal state; E78.5 Hyperlipidemia, unspecified
CPT/HCPCS: 99214

== ENCOUNTER 2023-11-01 07:41 | Outpatient (REF) | payer OTHER, SELFPAY ==
[2023-11-01 11:14] LABS: Anion Gap 13 (12-20); Blood Urea Nitrogen 10 mg/dL (9-16); Calcium 9.4 mg/dL (8.4-10.2); Carbon Dioxide 26 mmol/L (22-29); Chloride 102 mmol/L (96-108); Estimated Glomerular Filt Rate > 60; Glucose Random 97 mg/dL (60-115); Potassium 4.2 mmol/L (3.3-5.1); Sodium 137 mmol/L (135-145)
== END 2023-11-01 07:42 | disposition home or self-care (01) ==
LOC: HO.HMGCLDS 07:41
PROVIDERS: PCP Internal Medicine; Visit Provider Internal Medicine
DX: I10 Essential (primary) hypertension (principal)
CPT/HCPCS: 36415; 80048

== ENCOUNTER 2023-11-29 07:54 | Outpatient (REF) | payer OTHER, SELFPAY ==
[2023-11-29 11:33] LABS: Creatinine Urine 71.13 mg/dL; Microalbum/Creatinine Ratio Ur 47.7 ug/mg cr (<30)
[2023-11-29 11:48] LABS: Alanine Aminotransferase 15 U/L (0-31); Alkaline Phosphatase 37 U/L (39-117); Anion Gap 12 (12-20); Aspartate Amino Transferase 17 U/L (5-31); Bilirubin Total 0.5 mg/dL (0.0-1.0); Blood Urea Nitrogen 11 mg/dL (9-16); Calcium 9.5 mg/dL (8.4-10.2); Carbon Dioxide 27 mmol/L (22-29); Chloride 103 mmol/L (96-108); Cholesterol 122 mg/dL (<200); Estimated Glomerular Filt Rate > 60; Glucose Fasting 86 mg/dL (60-99); HDL Cholesterol 50 mg/dL (>40); LDL Cholesterol Calculated 55 mg/dL (<100); Potassium 4.1 mmol/L (3.3-5.1); Sodium 138 mmol/L (135-145); Total Protein 6.5 g/dL (6.5-8.0); Triglycerides 85 mg/dL (<150)
== END 2023-11-29 07:55 | disposition home or self-care (01) ==
LOC: HO.HMGCLDS 07:54
PROVIDERS: PCP Internal Medicine; Visit Provider Internal Medicine
DX: E11.9 Type 2 diabetes mellitus without complications (principal); I10 Essential (primary) hypertension
CPT/HCPCS: 36415; 80053; 80061; 82043; 82570

== ENCOUNTER 2023-12-04 08:54 | Outpatient (AMB) | payer OTHER, SELFPAY ==
[2023-12-04 09:33] VITALS: BP 118/68; PULSE 73; O2SAT 97; BMI 31.4
--- NOTE | 2023-12-04 09:33 | MHC.PC.OV ---
Vital Signs 12/04/23 09:33 Height 5 ft 3 in Weight 177 lb BMI 31.4 BP 118/68 Blood Pressure Location Lt brachial Position Sitting Pulse 73 Pulse Source Pulse Oximeter Pulse Oximetry (%) 97 Oxygen Delivery Method Room Air Intake Visit Reasons: Followup labs BP Intake Note: Pt is here today for a follow up visit on BP. Allergies No Known Allergies Allergy (Verified 12/04/23 09:35) Medication List - Last Reconciled 12/04/23 by Soni Marie MD albuterol sulfate 90 mcg/actuation (Ventolin HFA) 1 inh inhalation QID PRN atorvastatin 40 mg PO DAILY blood sugar diagnostic (Contour Next Test Strips) test blood sugar twice per day blood-glucose sensor ([employer] G7 Sensor device) USE DIRECTED TO MONITOR BLOOD SUGARS cholecalciferol (vitamin D3) 25 mcg PO DAILY docusate sodium 100 mg PO BID empagliflozin (Jardiance) 10 mg PO DAILY [fish oil PO .QD] fluticasone furoate 100 mcg/actuation (Arnuity Ellipta) 1 inh inhalation DAILY gabapentin 100 mg PO BEDTIME hydrochlorothiazide 12.5 mg PO DAILY lisinopril 40 mg PO DAILY metformin 1,000 mg PO BID Ozempic (semaglutide) 2 mg (0.75 mL) subcut QWEEK NS pantoprazole 20 mg PO DAILY triamcinolone acetonide 0.025% 1 appl topical DAILY Tobacco use date assessed: 10/16/23 Dental Screening Dental Screen Date: 10/16/23 HPI Followup labs BP HPI Details Patient presents for the follow-up on hypertension better controlled on current medications. She reports fluctuating blood glucose level after eating high carb meal like pizza and occasionally dropping to 60s 2 hours after a meal. She denies fasting glucose lows. [facility] Medical History GERD (gastroesophageal reflux disease) Diabetes Elevated cholesterol HTN (hypertension) Surgical History Hx of tonsillectomy Hx of gastric bypass History of colposcopy Hx of excision of lamina of cervical vertebra for decompression of spinal cord Hx of colonoscopy Family History Father No problems noted. 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[employer] Cognitive needs: No Hearing needs: No Vision needs: Yes Questionnaire PHQ-9 Over the last 2 weeks, how often have you been bothered by any of the following problems? 1. Little interest or pleasure in doing things: not at all 2. Feeling down, depressed, or hopeless: not at all 3. Trouble falling or staying asleep, or sleeping too much: not at all 4. Feeling tired or having little energy: not at all 5. Poor appetite or overeating: not at all 6. Feeling bad about yourself - or that you are a failure or have let yourself or your family down: not at all 7. Trouble concentrating on things, such as reading the newspaper or watching television: not at all 8. Moving or speaking so slowly that other people could have noticed. Or the opposite - being so fidgety or restless that you have been moving around a lot more than usual: not at all 9. Thoughts that you would be better off or of hurting yourself in some way: not at all Total score: 0 Depression Screening Interpretation: Negative Depression Screening Done: Yes 53298 - PHQ-9 Billing: Yes Source: Developed by Drs. Rober Padilla, Isis Lozano, Olvin Rosas and colleagues, with an educational moriah from [employer]. Thrive Questionnaire Date Thrive assessed: 12/04/23 I am a: Patient What is your living situation today?: I have a steady place to live Within the past 12 months, did the food you bought not last and you didn't have the money to get more?: Never true Within the past 12 months, did you worry whether your food would run out before you got money to buy more?: Never true Do you have trouble paying for medicines?: No Do you have trouble getting transportation to medical appointments?: No Do you have trouble paying your heating and electricity bill?: No Do you have trouble taking care of your child, family member or friend?: No Do you have trouble with day-to-day activities such as bathing, preparing meals, shopping, managing finances, etc.?: No Are you currently unemployed and looking for a job?: No Are you interested in more education?: No Please select the resources that you would like help with: None Currently or been in a relationship where the following occur: No concerns reported THRIVE Score: 0 AUDIT C Alcohol Use Questionnaire (AUDIT-C) 1. How often do you have a drink containing alcohol?: Never 3. How often do you have six or more drinks on one occasion?: Never Total Score: 0 ANGLE-7 AMB Questionnaire ANGLE-7 Date ANGLE - 7 assessed: 12/04/23 Feeling nervous, anxious, or on edge: 0 = Not at all Not being able to stop or control worryin = Not at all Worrying too much about different things: 0 = Not at all Trouble relaxin = Not at all Being so restless that it is hard to sit still: 0 = Not at all Becoming easily annoyed or irritable: 0 = Not at all Feeling afraid as if something awful might happen: 0 = Not at all Total ANGLE-7 score (0-4 normal; 5-9 mild; 10-14 moderate; 15-21 severe): 0 Source: Developed by Drs. Rober Padilla, Isis Lozano, Olvin Rosas and colleagues, with an educational moriah from [employer]. ANGLE-7 Assessment Billing ANGLE-7 Assessment Tool: ANGLE-7 Assessment 82857 Review of Systems Const All systems reviewed & are unremarkable except as noted in HPI and below Card Reports no additional complaints Resp Reports no additional complaints GI Reports no additional complaints Reports no additional complaints Physical exam (Primary Care) Vital Signs: Last Vital Signs Pulse 73 12/04/23 09:33 BP 118/68 12/04/23 09:33 Pulse Ox 97 12/04/23 09:33 Oxygen Delivery Method Room Air 12/04/23 09:33 BMI result Body Mass Index 31.4 Tobacco/Smoking Status: Tobacco use Status Tobacco use date assessed 10/16/23 12/04/23 09:33 Patient Tobacco Use Status Never used Tobacco 12/04/23 09:33 e-Cigarette/Vaping Use Never Used 09/12/24 09:33 PHQ-9: PHQ-9 Score PHQ-9: Total score 0 12/04/23 09:38 Depression Screening Interpretation: Negative Thrive Assessment: Date of Thrive Assessment Date Thrive assessed 12/04/23 12/04/23 09:38 Currently or been in a relationship where the following occur: No concerns reported Const General: no acute distress Resp Effort & Inspection: normal respiratory effort Auscultation: clear to auscultation bilaterally Cardio Rhythm: regular rhythm Heart sounds: S1 normal heart sound present and S2 normal heart sound present Assessment and Plan Assessment & Plan (1) DM type 2 (diabetes mellitus, type 2): Comment: A1c is 5.4, decrease metformin to 500 mg twice a day and continue Ozempic, ADA diet regular physical activity, follow-up in 3 months with a fasting labs before Code(s): E11.9 - Type 2 diabetes mellitus without complications Plan: Add Jardiance 10 mg continue current medications ADA diet regular exercise return in 2 months with a fasting labs before (2) HTN (hypertension): Code(s): I10 - Essential (primary) hypertension Plan: Continue current medications (3) Hyperlipidemia: Code(s): E78.5 - Hyperlipidemia, unspecified Plan: Continue statin Orders: Orders Comprehensive [place]. Panel Fast 2 Months E11.9 - Type 2 diabetes mellitus without complications, E78.5 - Hyperlipidemia, unspecified, I10 - Essential (primary) hypertension Lipid Panel 2 Months E11.9 - Type 2 diabetes mellitus without complications, E78.5 - Hyperlipidemia, unspecified, I10 - Essential (primary) hypertension Hemoglobin A1c 2 Months E11.9 - Type 2 diabetes mellitus without complications, E78.5 - Hyperlipidemia, unspecified, I10 - Essential (primary) hypertension Microalbumin, Random (w Creat) 2 Months E11.9 - Type 2 diabetes mellitus without complications, E78.5 - Hyperlipidemia, unspecified, I10 - Essential (primary) hypertension Medications: New empagliflozin (Jardiance) 10 mg PO DAILY 90 tabs 0RF Coding Level of Care Code Est Pt Level 4 (98033) Diagnoses DM type 2 (diabetes mellitus, type 2) E11.9 HTN (hypertension) I10 Hyperlipidemia E78.5 Additional Codes ANGLE-7 Assessment Billing - ANGLE-7 Assessment Tool: ANGLE-7 Assessment [id number] ([id number])
== END 2023-12-04 10:38 | disposition home or self-care (01) ==
PROVIDERS: PCP Internal Medicine; Visit Provider Internal Medicine
DX: E11.69 Type 2 diabetes mellitus with other specified complication (principal); I10 Essential (primary) hypertension; E78.5 Hyperlipidemia, unspecified
CPT/HCPCS: 99214

== ENCOUNTER 2023-12-26 08:07 | Outpatient (REF) | payer OTHER, SELFPAY ==
--- NOTE | ~2023-12-26 | MM_ITS ---
EXAMINATION: BONE DENSITOMETRY CLINICAL INDICATION: Asymptomatic menopausal state. COMPARISON: Baseline BD dated 12/19/2021. TECHNIQUE: Using a [employer] DXA System (software version: 13.1) manufactured by [employer], dual-energy x-ray absorptiometry was performed of the lumbar spine and left hip. The images are of good technical quality. Summary results are attached. FINDINGS: LEFT FEMUR, NECK: Current: BMD 0.839 g/cm2, Z-score -0.4, T-score -1.4, osteopenia. Baseline: BMD 0.828 g/cm2. LEFT FEMUR, TOTAL: Current: BMD 0.823 g/cm2, Z-score -0.7, T-score -1.5, osteopenia, 1.0% decrease from baseline (<5% change is not significant). Baseline: BMD 0.831 g/cm2. AP SPINE L1-L4: Current: BMD 0.980 g/cm2, Z-score -0.7, T-score -1.7, osteopenia, 11.3% decrease from baseline (<5% change is not significant). Baseline: BMD 1.105 g/cm2. IDENTIFIED RISK FACTORS: Menopause, secondary osteoporosis (partial gastrectomy). HISTORY OF FRACTURE: None listed. MEDICATIONS: Vitamin D. MM/XR DEXA axial skeleton IMPRESSION: 1. DIAGNOSIS: Osteopenia based on the lowest T-score value of -1.7 in the lumbar spine applying World Health Organization criteria. 2. 10-YEAR FRACTURE RISK PREDICTION, FRAX: Major osteoporotic fracture (clinical spine, forearm, hip or shoulder) 8.2%. Hip fracture 0.7%. 3. Treatment Recommendations: NOF guidelines recommend consideration for treatment in postmenopausal women and men age 50 and older presenting with the following: -A hip or vertebral (clinical or morphometric) fracture. -T-score less than or equal to -2.5 at the femoral neck or spine after appropriate evaluation to exclude secondary causes. -Low bone mass at the hip or spine and a 10-year fracture probability by FRAX of greater than or equal to 3% for hip fracture or greater than or equal to 20% for major osteoporotic fracture based on the [place] adapted WHO algorithm. 4. Other Recommendations: All treatment decisions require clinical judgment and consideration of individual patient factors, including patient preferences, comorbidities, previous drug use, risk factors not captured in the FRAX model (e.g. frailty, falls, vitamin D deficiency, increased bone turnover, interval significant decline in bone density) and possible under or overestimation of fracture risk by FRAX. Additional medical evaluation for secondary cause of low bone mineral density may be appropriate. FUTURE SCAN RECOMMENDATION: People with diagnosed cases of osteoporosis or at high risk for fracture should have regular bone mineral density tests. For patients eligible for Medicare, routine testing is allowed once every 2 years. The testing frequency can be increased to one year for patients who have rapidly progressing disease, those who are receiving or discontinuing medical therapy to restore bone mass, or have additional risk factors. Electronically signed by: Severino Kline MD 01/01/2024 04:58 PM EDT RP
== END 2023-12-26 08:08 | disposition home or self-care (01) ==
LOC: HO.MAMMO 08:07
PROVIDERS: PCP Internal Medicine; Visit Provider Internal Medicine
DX: Z13.820 Encounter for screening for osteoporosis (principal); Z78.0 Asymptomatic menopausal state
CPT/HCPCS: 77080

== ENCOUNTER 2024-03-04 07:28 | Outpatient (REF) | payer OTHER, SELFPAY ==
--- OUTSIDE RECORDS SUMMARY | 2024-03-04 07:30 | XMS_ITS | Patient Health Record ---
Author Organization [facility] Address [address] [place] [phone] Support Name Relationship Address Phone MASHA KRUSE Guarantor Unknown Unavailable REASON FOR REFERRAL No Information PLAN OF TREATMENT No Information Insurance Providers Payer Name Payer Address Payer Phone Subscriber Number Group Number Insured Name Patient Relationship to Insured Coverage Start Date Coverage End Date [employer] [facility] [address] [address] [place] [phone] [id number] MASHA KRUSE Self - patient is the insured
[2024-03-04 10:01] LABS: Creatinine Urine 46.18 mg/dL; Microalbum/Creatinine Ratio Ur 21.6 ug/mg cr (<30)
[2024-03-04 10:17] LABS: Alanine Aminotransferase 17 U/L (0-31); Albumin Level 3.9 g/dL (3.5-5.0); Alkaline Phosphatase 39 U/L (39-117); Anion Gap 11 (12-20); Aspartate Amino Transferase 22 U/L (5-31); Bilirubin Total 0.6 mg/dL (0.0-1.0); Blood Urea Nitrogen 11 mg/dL (9-16); Calcium 9.5 mg/dL (8.4-10.2); Carbon Dioxide 30 mmol/L (22-29); Chloride 102 mmol/L (96-108); Cholesterol 125 mg/dL (<200); Estimated Glomerular Filt Rate > 60; Glucose Fasting 78 mg/dL (60-99); HDL Cholesterol 53 mg/dL (>40); LDL Cholesterol Calculated 57 mg/dL (<100); Magnesium 1.9 mg/dL (1.6-2.6); Potassium 4.1 mmol/L (3.3-5.1); Sodium 139 mmol/L (135-145); Total Protein 6.4 g/dL (6.5-8.0); Triglycerides 75 mg/dL (<150)
[2024-03-04 10:20] LABS: Estimated Average Glucose 111 mg/dL; Hemoglobin A1c % 5.5 % (<6.0); Total Hemoglobin (HGBA1C) 3131.8831 umol/L
== END 2024-03-04 07:29 | disposition home or self-care (01) ==
LOC: HO.HMGCLDS 07:28
PROVIDERS: PCP Internal Medicine; Visit Provider Internal Medicine
DX: E11.9 Type 2 diabetes mellitus without complications (principal); I10 Essential (primary) hypertension; E78.5 Hyperlipidemia, unspecified
CPT/HCPCS: 36415; 80053; 80061; 82043; 82570; 83036; 83735

== ENCOUNTER 2024-03-11 11:19 | Outpatient (AMB) | payer OTHER, SELFPAY ==
[2024-03-11 11:21] VITALS: BP 102/66; PULSE 63; O2SAT 100; BMI 30.1
--- NOTE | 2024-03-11 11:21 | A.OFFPC_ITS ---
Vital Signs 03/11/24 11:21 Height 5 ft 3 in Weight 170 lb BMI 30.1 BP 102/66 Blood Pressure Location Lt brachial Position Sitting Pulse 63 Pulse Source Pulse Oximeter Pulse Oximetry (%) 100 Oxygen Delivery Method Room Air Intake Visit Reasons: 3 month follow up DM Allergies No Known Allergies Allergy (Verified 12/04/23 09:35) Medication List - Last Reconciled 03/11/24 by Soni Marie MD albuterol sulfate 90 mcg/actuation (Ventolin HFA) 1 inh inhalation QID PRN atorvastatin 40 mg PO DAILY blood sugar diagnostic (Contour Next Test Strips) test blood sugar twice per day blood-glucose sensor (Floobits G7 Sensor device) USE DIRECTED TO MONITOR BLOOD SUGARS cholecalciferol (vitamin D3) 25 mcg PO DAILY docusate sodium 100 mg PO BID empagliflozin (Jardiance) 10 mg PO DAILY [fish oil PO .QD] fluticasone furoate 100 mcg/actuation (Arnuity Ellipta) 1 inh inhalation DAILY gabapentin 100 mg PO BEDTIME hydrochlorothiazide 12.5 mg PO DAILY lisinopril 40 mg PO DAILY metformin 1,000 mg PO BID Ozempic (semaglutide) 2 mg (0.75 mL) subcut QWEEK NS pantoprazole 20 mg PO DAILY triamcinolone acetonide 0.025% 1 appl topical DAILY Tobacco use date assessed: 03/11/24 Dental Screening Dental Screen Date: 10/16/23 HPI 3 month follow up DM HPI Details Patient presents for the follow-up of hypertension hyperlipidemia type 2 diabetes. She reports better diabetes controlled has been walking regularly. Patient reports increasing leg cramps worse at night. She has been using compression socks and reports improvement. Patient denies lower extremity swelling PFSH Medical History GERD (gastroesophageal reflux disease) Diabetes Elevated cholesterol HTN (hypertension) Surgical History Hx of tonsillectomy Hx of gastric bypass History of colposcopy Hx of excision of lamina of cervical vertebra for decompression of spinal cord Hx of colonoscopy Family History Father No problems noted. 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[employer] Cognitive needs: No Hearing needs: No Vision needs: Yes Questionnaire Thrive Questionnaire Date Thrive assessed: 10/10/23 I am a: Patient What is your living situation today?: I have a steady place to live Within the past 12 months, did the food you bought not last and you didn't have the money to get more?: Never true Within the past 12 months, did you worry whether your food would run out before you got money to buy more?: Never true Do you have trouble paying for medicines?: No Do you have trouble getting transportation to medical appointments?: No Do you have trouble paying your heating and electricity bill?: No Do you have trouble taking care of your child, family member or friend?: No Do you have trouble with day-to-day activities such as bathing, preparing meals, shopping, managing finances, etc.?: No Are you currently unemployed and looking for a job?: No Are you interested in more education?: No Please select the resources that you would like help with: None Currently or been in a relationship where the following occur: No concerns reported THRIVE Score: 0 ANGLE-7 AMB Questionnaire ANGLE-7 Date ANGLE - 7 assessed: 12/04/23 Source: Developed by Drs. Rober Padilla, Isis Lozano, Olvin Rosas and colleagues, with an educational moriah from [employer]. Review of Systems Const All systems reviewed & are unremarkable except as noted in HPI and below ENT Reports no additional complaints Card Reports no additional complaints Resp Reports no additional complaints GI Reports no additional complaints Reports no additional complaints Physical exam (Primary Care) Vital Signs: Last Vital Signs Pulse 63 03/11/24 11:21 BP 102/66 03/11/24 11:21 Pulse Ox 100 03/11/24 11:21 Oxygen Delivery Method Room Air 03/11/24 11:21 BMI result Body Mass Index 30.1 Tobacco/Smoking Status: Tobacco use Status Tobacco use date assessed 03/11/24 03/11/24 11:25 Patient Tobacco Use Status Never used Tobacco 12/19/24 11:25 e-Cigarette/Vaping Use Never Used 03/11/24 11:25 Thrive Assessment: Date of Thrive Assessment Date Thrive assessed 10/10/23 03/11/24 11:25 Currently or been in a relationship where the following occur: No concerns reported Const General: no acute distress HENMT Face and sinus: Yes normal facial exam Throat: Yes posterior oropharynx normal Eyes General: appearance normal, both eyes and all related structures Resp Effort & Inspection: normal respiratory effort Auscultation: clear to auscultation bilaterally Cardio Rhythm: regular rhythm Heart sounds: S1 normal heart sound present and S2 normal heart sound present GI Inspection: Yes normal to inspection Palpation (GI): Soft to palpation Extrem Other: Diabetic foot exam skin is intact monofilament sensation intact bilaterally General: Yes no pedal edema Coding Level of Care Code Est Pt Level 4 (28841) Diagnoses DM type 2 (diabetes mellitus, type 2) E11.9 HTN (hypertension) I10 Hyperlipidemia E78.5 Vitamin D deficiency E55.9 Vitamin B 12 deficiency E53.8 Assessment & Plan Assessment & Plan (1) DM type 2 (diabetes mellitus, type 2): Comment: A1c is 5.4, decrease metformin to 500 mg twice a day and continue Ozempic, ADA diet regular physical activity, follow-up in 3 months with a fasting labs before Code(s): E11.9 - Type 2 diabetes mellitus without complications Category: Medical Plan: A1c is 5.5. Continue current medications ADA diet regular physical activity (2) HTN (hypertension): Code(s): I10 - Essential (primary) hypertension Category: Medical Plan: Blood pressure is low and hydrochlorothiazide will be discontinued. Basic metabolic panel will be checked for potassium level when off hydrochlorothiazide (3) Hyperlipidemia: Code(s): E78.5 - Hyperlipidemia, unspecified Category: Medical Plan: LDL is low and atorvastatin will be decreased to 20 mg a day follow-up in 4 months with a fasting labs before (4) Vitamin D deficiency: Code(s): E55.9 - Vitamin D deficiency, unspecified Category: Medical Plan: cont vit D (5) Vitamin B 12 deficiency: Code(s): E53.8 - Deficiency of other specified B group vitamins Category: Medical Plan: cont vit B12 Orders: Orders Comprehensive [place]. Panel Fast 4 Months E11.9 - Type 2 diabetes mellitus without complications, E78.5 - Hyperlipidemia, unspecified, I10 - Essential (primary) hypertension Microalbumin, Random (w Creat) 4 Months E11.9 - Type 2 diabetes mellitus without complications, E78.5 - Hyperlipidemia, unspecified, I10 - Essential (primary) hypertension Magnesium 4 Months E11.9 - Type 2 diabetes mellitus without complications, E78.5 - Hyperlipidemia, unspecified, I10 - Essential (primary) hypertension Magnesium 2 Weeks R25.2 - Cramp and spasm Vitamin B12 and Folate 4 Months E53.8 - Deficiency of other specified B group vitamins, E55.9 - Vitamin D deficiency, unspecified Basic Metabolic Panel 2 Weeks E11.9 - Type 2 diabetes mellitus without complications, E78.5 - Hyperlipidemia, unspecified, I10 - Essential (primary) hypertension Complete Blood Count Auto Diff 4 Months E11.9 - Type 2 diabetes mellitus without complications, E78.5 - Hyperlipidemia, unspecified, I10 - Essential (primary) hypertension Lipid Panel 4 Months E11.9 - Type 2 diabetes mellitus without complications, E78.5 - Hyperlipidemia, unspecified, I10 - Essential (primary) hypertension Hemoglobin A1c 4 Months E11.9 - Type 2 diabetes mellitus without complications, E78.5 - Hyperlipidemia, unspecified, I10 - Essential (primary) hypertension Vitamin D 25-OH Total 4 Months E53.8 - Deficiency of other specified B group vitamins, E55.9 - Vitamin D deficiency, unspecified Medications: Refilled gabapentin 100 mg PO BEDTIME 90 caps 0RF
--- OUTSIDE RECORDS SUMMARY | 2024-03-11 11:25 | XMS_ITS | Patient Health Record ---
Author Organization [facility], [facility] Address [address] [place] [phone] Support Name Relationship Address Phone MASHA KRUSE Guarantor Unknown Unavailable REASON FOR REFERRAL No Information PLAN OF TREATMENT No Information Insurance Providers Payer Name Payer Address Payer Phone Subscriber Number Group Number Insured Name Patient Relationship to Insured Coverage Start Date Coverage End Date [employer] [facility] [address] [address] [place] [phone] [id number] MASHA KRUSE Self - patient is the insured
== END 2024-03-11 15:55 | disposition home or self-care (01) ==
PROVIDERS: PCP Internal Medicine; Visit Provider Internal Medicine
DX: E11.9 Type 2 diabetes mellitus without complications (principal); I10 Essential (primary) hypertension; E78.5 Hyperlipidemia, unspecified; E55.9 Vitamin D deficiency, unspecified; E53.8 Deficiency of other specified B group vitamins

== ENCOUNTER → 2024-03-11 11:19 | Outpatient (BNVA) | payer OTHER, SELFPAY | PROVIDERS: PCP Internal Medicine; Visit Provider Internal Medicine ==

== ENCOUNTER 2024-06-07 07:53 | Outpatient (REF) | payer OTHER, SELFPAY ==
--- OUTSIDE RECORDS SUMMARY | 2024-06-07 07:57 | XMS_ITS | Encounter Summary ---
Author Organization [facility] Address [address] [place] [address] Care Team Providers Care Care Center Manager Name Role Phone Michelle Fine DO Primary Care Pro vider Joseph Aguayo MD Primary Care Provider Nelida Villanueva, Pcp Primary Care Provider Lenora anders Encounter Details Date Type Department Care Team Description 08/31/2018 Refill Adult Medicine [address] [address] Michelle Fine DO Social History Tobacco Use Types Packs/Day Years Used Date Smoking Tobacco: Never Smokeless Tobacco: Never Alcohol Use Standard Drinks/Week Comments No 0 (1 standard drink = 0.6 oz pur e alcohol) Sex Assigned at Date Recorded Not on file documented as of this encounter Miscellaneous Notes * Telephone Encounter - Emilia Gregory M.A. - 08/31/2018 7:11 AM EDT Last office visit 05/04/18 Next office visit 09/23/18 Lab Results Component Value Date CHOL 259 08/12/2018 LDL 162 08/12/2018 HDL 58 08/12/2018 TRIG 198 08/12/2018 SGOT 17 09/08/2012 SGPT 20 09/08/2012 * Telephone Encounter - Emilia Gregory M.A. - 08/31/2018 7:11 AM EDTFrom: Mariely Rodriguez To: Michelle Collins DO Sent: 08/31/2018 6:12 AM EDT Subject: Medication Renewal Request Original authorizing provider: DO Mariely Larry Michael would like a refill of the following medications: simvastatin (ZOCOR) 40 MG tablet [Michelle Peralta DO] Preferred pharmacy: Other - [facility] Comment: 90 day supply, please send to [facility], new insurance and pharmacy benefit Medication renewals requested in this message routed to other providers: lisinopril (PRINIVIL,ZESTRIL) 10 MG tablet [Jessie Torres PA-C] documented in this encounter Plan of Treatment Not on file documented as of this encounter Visit Diagnoses Not on filedocumented in this encounter Care Teams Care Center Manager Relationship Specialty Start Date End Date Michelle Fine DO PCP - General Internal Medicine 06/12/15 04/28/19 Joseph Boyce MD PCP - General Internal Medicine 04/29/19 05/29/21 [facility], [facility] PCP - General Internal Medicine 05/30/21 documented as of this encounter
--- OUTSIDE RECORDS SUMMARY | 2024-06-07 07:57 | XMS_ITS | Encounter Summary ---
Author Organization [facility] Address [address] [place] [address] Care Team Providers Care Bilingual Counter Sales Retail Name Role Phone Konstantin Sinha MD Primary Care Provider Unavail able Michelle Fine DO Primary Care Pro vider Unavailable Joseph Boyce MD [facility], Pcp Primary Care Provider Unavailabl e Reason for Visit * Reason Onset Date Comments other 08/31/2010 Encounter Details Date Type Department Care Team Description 08/31/2010 Pt. Non Urgent Medical Question Adult Medicine [address] [address] Blaire Melendez PA-C Social History Tobacco Use Types Packs/Day Years Used Date Smoking Tobacco: Never Alcohol Use Standard Drinks/Week Comments No 0 (1 standard drink = 0.6 oz pur e alcohol) Sex Assigned at Date Recorded Not on file documented as of this encounter Progress Notes * Dipika Carlton L.P.N. - 08/31/2010 11:53 AM EDTFrom: MARIELY RODRIGUEZ To: Jasmine Melendez Sent: FriAug 31, 2010 8:34 AM Subject: Titers Hi Kindra, I got a notice from our Employee Health Dept that I need a record of titers for Hep B, Measles and Rubella. Can you put orders in for me when you have a chance? Mariely Ward documented in this encounter Plan of Treatment Not on file documented as of this encounter Visit Diagnoses Not on filedocumented in this encounter Care Teams Bilingual Counter Sales Retail Relationship Specialty Start Date End Date Konstantin Sinha MD PCP - General 11/26/1994 06/11/15 Michelle Fine DO PCP - General Internal Medicine 06/12/15 04/28/19 Joseph Boyce MD PCP - General Internal Medicine 04/29/19 05/29/21 [facility], Pcp PCP - General Internal Medicine 05/30/21 documented as of this encounter
--- OUTSIDE RECORDS SUMMARY | 2024-06-07 07:57 | XMS_ITS | Encounter Summary ---
Author Organization [facility] Address [address] [place] [address] Care Team Providers Care Ui Ux Web Developer Name Role Phone Michelle Fine DO Primary Care Pro vider Joseph Aguayo MD Primary Care Provider Nelida Villanueva, Pcp Primary Care Provider Lenora anders Encounter Details Date Type Department Care Team Description 08/19/2018 Pt. Non Urgent Medic al Question Adult Medicine [address] [address] Michelle Fine DO Social History Tobacco Use Types Packs/Day Years Used Date Smoking Tobacco: Never Smokeless Tobacco: Never Alcohol Use Standard Drinks/Week Comments No 0 (1 standard drink = 0.6 oz pur e alcohol) Sex Assigned at Date Recorded Not on file documented as of this encounter Progress Notes * Emilia Gregory M.A. - 08/19/2018 7:42 AM EDTFrom: Mariely Rodriguez To: Michelle Collins DO Sent: 08/19/2018 7:40 AM EDT Subject: Lab results Jey, Thank you for the message about my test results. I will stop the vitamin B supplements, it's the only vitamin I take which you had advised because of a previous low level. I also noticed the vitamin D level was below normal, is that something I should add? I was off the simvastatin for about a month because I changed jobs and didn't have insurance coverage. I could have afforded the medication but I knew I needed lab work done before you would refill the script so as soon as my insurance was effective, I had the lab work done. If you could send a script for simvastatin 40mg to [facility] for 30 days, I could restart it as soon as today. I will then request a 90 day script in a separate message for mail in. Thank you, Mariely documented in this encounter Plan of Treatment Not on file documented as of this encounter Visit Diagnoses Not on filedocumented in this encounter Care Teams Ui Ux Web Developer Relationship Specialty Start Date End Date Michelle Fine DO PCP - General Internal Medicine 06/12/15 04/28/19 Joseph Boyce MD PCP - General Internal Medicine 04/29/19 05/29/21 [facility], Pcp PCP - General Internal Medicine 05/30/21 documented as of this encounter
--- OUTSIDE RECORDS SUMMARY | 2024-06-07 07:57 | XMS_ITS | Encounter Summary ---
Author Organization [facility] Address [address] [place] [address] Care Team Providers Care Siphon Operator Name Role Phone Michelle Fine DO Primary Care Pro vider Joseph Aguayo MD Primary Care Provider Nelida Villanueva, Pcp Primary Care Provider Lenora anders Encounter Details Date Type Department Care Team Description 01/12/2018 Pt. Non Urgent Medical Question Adult Medicine [address] [address] Jessie Torres PA-C Type 2 diabetes mellitus with hyperglycemia, unspecified whether terminal worker insulin use (HCC) (Primary Dx) Social History Tobacco Use Types Packs/Day Years Used Date Smoking Tobacco: Never Smokeless Tobacco: Never Alcohol Use Standard Drinks/Week Comments No 0 (1 standard drink = 0.6 oz pur e alcohol) Sex Assigned at Date Recorded Not on file documented as of this encounter Progress Notes * Elizabeth Munoz M.A. - 01/12/2018 11:09 AM EDTFrom: Mariely Rodriguez To: Jessie Torres PA-C Sent: 01/12/2018 4:38 AM EDT Subject: Diabetes follow up I scheduled a diabetes follow up appt, as requested. Do I need lab work prior to the appt? It wasn't mentioned in the automated message I received. documented in this encounter Plan of Treatment Not on file documented as of this encounter Results * HEMOGLOBIN A1C (01/21/2018 7:32 AM EDT) Glycosylated Hemoglobin A1C 5.8 4.0 - 6.0 % 01/21/2018 9:42 AM EDT [facility] Comment: HbA1C VALUES MAY NOT ACCURATELY REFLECT MEAN BLOOD GLUCOSE IN PATIENTS WITH HEMOGLOBIN VARIANTS SUCH HbF, HbS. 01/21/2018 7:32 AM EDT 01/21/2018 7:32 AM EDT Jessie Torres PA-C LAB Performing Organization Address City/State/[facility] Co de Phone Number [address] documented in this encounter Visit Diagnoses Diagnosis Type 2 diabetes mellitus with hyperglycemia, unspecified whether terminal worker insulin use (HCC)- Primary documented in this encounter Care Teams Siphon Operator Relationship Specialty Start Date End Date Michelle Fine DO PCP - General Internal Medicine 06/12/15 04/28/19 Joseph Boyce MD PCP - General Internal Medicine 04/29/19 05/29/21 [facility], Pcp PCP - General Internal Medicine 05/30/21 documented as of this encounter
--- OUTSIDE RECORDS SUMMARY | 2024-06-07 07:57 | XMS_ITS | Patient Health Record ---
Author Organization [facility], [facility] Address [address] [place] [phone] Support Name Relationship Address Phone MASHA KRUSE Guarantor Unknown Unavailable REASON FOR REFERRAL No Information PLAN OF TREATMENT No Information Insurance Providers Payer Name Payer Address Payer Phone Subscriber Number Group Number Insured Name Patient Relationship to Insured Coverage Start Date Coverage End Date [employer] [facility] [address] [address] [place] [phone] [id number] MASHA KRUSE Self - patient is the insured
--- OUTSIDE RECORDS SUMMARY | 2024-06-07 07:57 | XMS_ITS | Encounter Summary ---
Author Organization [facility] Address [address] [place] [address] Care Team Providers Care Plate Molder Name Role Phone Michelle Fine DO Primary Care Pro vider Joseph Aguayo MD Primary Care Provider Nelida Villanueva, Pcp Primary Care Provider Unavailcharissa e Reason for Visit * Reason Onset Date Comments Medication 10/04/2018 Encounter Details Date Type Department Care Team Description 10/04/2018 Pt. Non Urgent Medical Question Adult [address] [address] Michelle Fine DO Type 2 diabetes mellitus without complication, without long-term current use of insulin (HCC); Polycystic ovaries; Hypercholesterolemia Social History Tobacco Use Types Packs/Day Years Used Date Smoking Tobacco: Never Smokeless Tobacco: Never Alcohol Use Standard Drinks/Week Comments No 0 (1 standard drink = 0.6 oz pur e alcohol) Sex Assigned at Date Recorded Not on file documented as of this encounter Progress Notes * Michelle Collins DO - 10/08/2018 9:28 PM EDT Okay ot submit the regular metformin to me and i'll sign documented in this encounter Miscellaneous Notes * Telephone Encounter - Adrianne Aranda M.A. - 10/05/2018 7:27 AM EDTFrom: Mariely Rodriguez To: Michelle Collins DO Sent: 10/04/2018 6:59 PM EDT Subject: Metformin Hi, My new insurance doesn't cover metformin ER. Can you change my script to regular metformin? Please send new script, for 90 day supply to [facility]. Thank you documented in this encounter Plan of Treatment Not on file documented as of this encounter Visit Diagnoses Diagnosis Type 2 diabetes mellitus without complication, without long-term current use of insulin (HCC) Polycystic ovaries Hypercholesterolemia Pure hypercholesterolemia documented in this encounter Care Teams Plate Molder Relationship Specialty Start Date End Date Michelle Fine DO PCP - General Internal Medicine 06/12/15 04/28/19 Joseph Boyce MD PCP - General Internal Medicine 04/29/19 05/29/21 [facility], Pcp PCP - General Internal Medicine 05/30/21 documented as of this encounter
--- OUTSIDE RECORDS SUMMARY | 2024-06-07 07:57 | XMS_ITS | Encounter Summary ---
Author Organization [facility] Address [address] [place] [address] Care Team Providers Care Welcome Wagon Hostess Name Role Phone Konstantin Sinha MD Primary Care Provider Unavail able Michelle Fine DO Primary Care Pro vider Unavailable Joseph Boyce MD Primary Care Provider Nelida roberts [facility], Pcp Primary Care Provider Unavailcharissa e Encounter Details Date Type Department Care Team Description 09/05/2014 [facility] Medical Records [address] [place] [id number] Abstract, Provider Social History Tobacco Use Types Packs/Day Years Used Date Smoking Tobacco: Never Smokeless Tobacco: Never Alcohol Use Standard Drinks/Week Comments No 0 (1 standard drink = 0.6 oz pur e alcohol) Sex Assigned at Date Recorded Not on file documented as of this encounter Plan of Treatment Not on file documented as of this encounter Visit Diagnoses Not on filedocumented in this encounter Care Teams Welcome Wagon Hostess Relationship Specialty Start Date End Date Konstantin Sinha MD PCP - General 11/26/1994 06/11/15 Michelle Fine DO PCP - General Internal Medicine 06/12/15 04/28/19 Joseph Boyce MD PCP - General Internal Medicine 04/29/19 05/29/21 [facility], [facility] PCP - General Internal Medicine 05/30/21 documented as of this encounter
--- OUTSIDE RECORDS SUMMARY | 2024-06-07 07:57 | XMS_ITS | Encounter Summary ---
Author Organization [facility] Address [address] [place] [address] Care Team Providers Care Manager Inventory Control Name Role Phone Michelle Fine DO Primary Care Pro vider Joseph Aguayo MD Primary Care Provider Nelida Villanueva, Pcp Primary Care Provider Lenora anders Encounter Details Date Type Department Care Team Description 03/19/2018 Refill Adult Medicine [address] [address] Michelle Fine DO Social History Tobacco Use Types Packs/Day Years Used Date Smoking Tobacco: Never Smokeless Tobacco: Never Alcohol Use Standard Drinks/Week Comments No 0 (1 standard drink = 0.6 oz pur e alcohol) Sex Assigned at Date Recorded Not on file documented as of this encounter Miscellaneous Notes * Telephone Encounter - Emilia Gregory M.A. - 03/19/2018 2:57 PM EST Last office visit 01/22/18 Next office visit 06/02/17 * Telephone Encounter - Emilia Gregory M.A. - 03/19/2018 2:57 PM ESTFrom: Mariely Rodriguez To: Michelle Collins DO Sent: 03/19/2018 8:07 AM EST Subject: Medication Renewal Request Original authorizing provider: DO Mariely Larry would like a refill of the following medications: ALBUTEROL SULFATE (PROAIR HFA) 108 (90 BASE) MCG/ACT Aero Soln [Michelle Peralta DO] fluticasone (FLOVENT HFA) 110 MCG/ACT inhaler [Michelle Peralta DO] Preferred pharmacy: [id number] - [place] [address] AT Comment: I'm asking for a refill on both of my inhalers. I only use them when I get a cold, it helps decrease symptoms (cough and congestion) from worsening and then requiring prednisone. Cold symptoms and chest congestion started 03/16, low grade fever but no signs of influenza. Both inhalers should probably be listed as PRN for cough? I take the Flovent regularly for 2-3 weeks when I get sick and then don't use it at all until I get sick again. Thanks [phone] documented in this encounter Plan of Treatment Not on file documented as of this encounter Visit Diagnoses Not on filedocumented in this encounter Care Teams Manager Inventory Control Relationship Specialty Start Date End Date Michelle Fine DO PCP - General Internal Medicine 06/12/15 04/28/19 Joseph Boyce MD PCP - General Internal Medicine 04/29/19 05/29/21 [facility], Pcp PCP - General Internal Medicine 05/30/21 documented as of this encounter
--- OUTSIDE RECORDS SUMMARY | 2024-06-07 07:57 | XMS_ITS | Encounter Summary ---
Author Organization [facility] Address [address] [place] [address] Care Team Providers Care Senior Tax Accountant Name Role Phone Michelle Fine DO Primary Care Pro vider Joseph Aguayo MD Primary Care Provider Nelida Villanueva, Pcp Primary Care Provider Lenora anders Encounter Details Date Type Department Care Team Description 08/31/2018 Refill Adult Medicine [address] [address] Jessie Torres PA-C Social History Tobacco Use Types Packs/Day Years Used Date Smoking Tobacco: Never Smokeless Tobacco: Never Alcohol Use Standard Drinks/Week Comments No 0 (1 standard drink = 0.6 oz pur e alcohol) Sex Assigned at Date Recorded Not on file documented as of this encounter Miscellaneous Notes * Telephone Encounter - Emilia Gregory M.A. - 08/31/2018 7:12 AM EDT Last office visit 05/04/18 Next office visit 09/23/18 Lab Results Component Value Date NA 140 08/12/2018 K 4.5 08/12/2018 CO2 29 08/12/2018 CL 105 08/12/2018 BUN 14 08/12/2018 CREAT 0.75 08/12/2018 GLU 83 08/12/2018 CA 9.6 08/12/2018 GFR > 60 08/12/2018 * Telephone Encounter - Emilia Gregory M.A. - 08/31/2018 7:12 AM EDTFrom: Mariely Rodriguez To: Jessie Torres PA-C Sent: 08/31/2018 6:12 AM EDT Subject: Medication Renewal Request Original authorizing provider: Jessie Torres PA-C Mariely Rodriguez would like a refill of the following medications: lisinopril (PRINIVIL,ZESTRIL) 10 MG tablet [Jessie Torres PA-C] Preferred pharmacy: Other - [facility] Comment: 90 day supply, please send to [facility], new insurance and pharmacy benefit Medication renewals requested in this message routed to other providers: simvastatin (ZOCOR) 40 MG tablet [Michelle Peralta DO] documented in this encounter Plan of Treatment Not on file documented as of this encounter Visit Diagnoses Diagnosis Hypercholesterolemia Pure hypercholesterolemia documented in this encounter Care Teams Senior Tax Accountant Relationship Specialty Start Date End Date Michelle Fine DO PCP - General Internal Medicine 06/12/15 04/28/19 Joseph Boyce MD PCP - General Internal Medicine 04/29/19 05/29/21 [facility], Pcp PCP - General Internal Medicine 05/30/21 documented as of this encounter
--- OUTSIDE RECORDS SUMMARY | 2024-06-07 07:58 | XMS_ITS | Encounter Summary ---
Author Organization [facility] Address [address] [place] [address] Care Team Providers Care Maintenance Groundskeeper Name Role Phone Michelle Fine DO Primary Care Pro vider Unavailable Joseph Boyce MD Primary Care Provider Nelida Villanueva, Pcp Primary Care Provider Lenora anders Encounter Details Date Type Department Care Team Description 10/22/2016 Pt. Non Urgent Medical Question Rheumatology - [address] [address] Efren Vasquez MD Social History Tobacco Use Types Packs/Day Years Used Date Smoking Tobacco: Never Smokeless Tobacco: Never Alcohol Use Standard Drinks/Week Comments No 0 (1 standard drink = 0.6 oz pur e alcohol) Sex Assigned at Date Recorded Not on file documented as of this encounter Progress Notes * Radha Ching M.A. - 10/23/2016 10:41 AM EDTFrom: Mariely Rosalesbrayden To: Efren Vasquez MD Sent: 10/22/2016 8:28 PM EDT Subject: Wrist pain Hi Dr Vasquez, You gave me a cortisone injection in my left wrist after I had pain in it for months. I've started with a similar pain intermittently in the right wrist. I would like to try NSAID and a brace to try to offset it from getting worse. In the past, I was given naprosyn BID and I was wondering if you could send a script for me? To [facility] in [place]. The OTC dose of Aleve never seems to do the trick for me. If you need to see me in the office first, I understand. My schedule is pretty flexible and I can accommodate most options except Friday afternoons. Thank you, Mariely documented in this encounter Plan of Treatment Not on file documented as of this encounter Visit Diagnoses Not on filedocumented in this encounter Care Teams Maintenance Groundskeeper Relationship Specialty Start Date End Date Michelle Fine DO PCP - General Internal Medicine 06/12/15 04/28/19 Joseph Boyce MD PCP - General Internal Medicine 04/29/19 05/29/21 [facility], Pcp PCP - General Internal Medicine 05/30/21 documented as of this encounter
--- OUTSIDE RECORDS SUMMARY | 2024-06-07 07:58 | XMS_ITS | Encounter Summary ---
Author Organization [facility] Address [address] [place] [address] Care Team Providers Care Pulling Unit Floorhand Name Role Phone Michelle Fine DO Primary Care Pro vider Joseph Aguayo MD Primary Care Provider Nelida Villanueva, Pcp Primary Care Provider Lenora anders Encounter Details Date Type Department Care Team Description 03/26/2017 Pt. Non Urgent Medic al Question Adult Medicine [address] [address] Jessie Torres PA-C Social History Tobacco Use Types Packs/Day Years Used Date Smoking Tobacco: Never Smokeless Tobacco: Never Alcohol Use Standard Drinks/Week Comments No 0 (1 standard drink = 0.6 oz pur e alcohol) Sex Assigned at Date Recorded Not on file documented as of this encounter Progress Notes * Radha Villasenor L.P.N. - 03/26/2017 2:32 PM ESTFrom: Mariely Rodriguez To: Jessie Torres PA-C Sent: 03/26/2017 2:17 PM EST Subject: Physiatry Enzo Roman, I received a call from Specialties today to book my appt. They scheduled it for 04/25/17. Although I understand they are busy and I'm a dedicated [facility] patient, I'm feeling pretty desperate with this pain. I called [facility] and scheduled an appt with them for 03/31/17. They said they don't need a referral, I will let you know if I hear differently from them. Thanks for your help, Mariely documented in this encounter Plan of Treatment Not on file documented as of this encounter Visit Diagnoses Not on filedocumented in this encounter Care Teams Pulling Unit Floorhand Relationship Specialty Start Date End Date Michelle Fine DO PCP - General Internal Medicine 06/12/15 04/28/19 Joseph Boyce MD PCP - General Internal Medicine 04/29/19 05/29/21 [facility], Pcp PCP - General Internal Medicine 05/30/21 documented as of this encounter
--- OUTSIDE RECORDS SUMMARY | 2024-06-07 07:58 | XMS_ITS | Encounter Summary ---
Author Organization [facility] Address [address] [place] [address] Care Team Providers Care Analytic Manager Name Role Phone Konstantin Sinha MD Primary Care Provider Unavail able Michelle Fine DO Primary Care Pro vider Unavailable Joseph Boyce MD Primary [facility], [facility] Primary Care Provider Lenora e Encounter Details Date Type Department Care Team Description 09/13/2011 Refill Adult Medicine [address] [address] Blaire Melendez PA-C Social History Tobacco Use Types Packs/Day Years Used Date Smoking Tobacco: Never Smokeless Tobacco: Never Alcohol Use Standard Drinks/Week Comments No 0 (1 standard drink = 0.6 oz pur e alcohol) Sex Assigned at Date Recorded Not on file documented as of this encounter Miscellaneous Notes * Telephone Encounter - Adrianne Aranda M.A. - 09/14/2011 9:[address] Sinha, did you want Mariely to have any labs? * Telephone Encounter - Adrianne Aranda M.A. - 09/14/2011 9:14 AM EDT rx faxed * Telephone Encounter - Dipika Carlton L.P.N. - 09/13/2011 1:21 PM EDT OK for Friday .MATTI 06/07/11. Labs set up ,please check and sign if ok. * Telephone Encounter - Dipika Carlton L.P.N. - 09/13/2011 1:14 PM EDTFrom: MARIELY RODRIGUEZ To: Blaire Melendez PA-C Sent: FriSep 13, 2011 6:31 AM Subject: Medication Renewal Request Original authorizing provider: BRYAN James would like a refill of the following medications: simvastatin (ZOCOR) 20 MG tablet [Blaire Melendez PA-C] Preferred pharmacy: [facility] [facility] [address] [facility] Comment: 90 day supply please. If I'm due for bloodwork please enter the orders and let me know. documented in this encounter Plan of Treatment Not on file documented as of this encounter Visit Diagnoses Diagnosis BENIGN ESSENTIAL HYPERTENSION Essential hypertension, benign Hypercholesterolemia Pure hypercholesterolemia Diabetes mellitus type II, controlled with diet and exercise Type II or unspecified type diabetes mellitus without mention of complication, not stated as uncontrolled documented in this encounter Care Teams Analytic Manager Relationship Specialty Start Date End Date Konstantin Sinha MD PCP - General 11/26/1994 06/11/15 Michelle Fine DO PCP - General Internal Medicine 06/12/15 04/28/19 Joseph Boyce MD PCP - General Internal Medicine 04/29/19 05/29/21 [facility], Pcp PCP - General Internal Medicine 05/30/21 documented as of this encounter
--- OUTSIDE RECORDS SUMMARY | 2024-06-07 07:58 | XMS_ITS | Clinical Summary ---
Author Organization [facility] Address [address] [place] [address] Care Team Providers Care Investigative Shopper Name Role Phone Michelle Peralta Primary Care Pro vider Surgical History Surgery Date Site/Laterality Comments GASTRIC BYPASS 07/06/01 PROCEDURE: [facility] GASTRIC RSTCV W/BYP W/SM INT RCNSTJ LIMIT ABSRPJ COLONOSCOPY 11/09/2010 PROCEDURE: [facility] COLONOSCOPY FLX DX W/COLLJ SPEC WHEN PFRMD; COMMENT: normal TONSILLECTOMY PROCEDURE: HISTORICAL TONSILLECTOMY COLPOSCOPY PROCEDURE: [facility] COLPOSCOPY ENTIRE VAGINA W/CERVIX IF PRESENT; COMMENT: abnormal pap OTHER SURGICAL HISTORY 07/24/2017 PROCEDURE: [facility] ARTHRD ANT INTERBODY DECOMPRESS CERVICAL BELW C2 OTHER SURGICAL HISTORY 07/2017 PROCEDURE: [facility] ARTHRD ANT INTERBODY MIN DSC CRV BELOW C2; COMMENT: Dr. Thorne Medical History Medical History Date Comments Polycystic ovaries 04/03/2005 DX:Polycystic ovaries Esophageal reflux 04/03/2005 DX:Esophageal reflux Obesity, unspecified 04/03/2005 DX:Obesity, unspecified Type II or unspecified type diabetes mellitus without mention of complication, uncontrolled 04/03/2005 DX:Type II or unspecified ty pe diabetes mellitus without mention of complication, uncontrolled Diabetes mellitus, type 2 (CMS/HCC) 11/20/2010 DX:Diabetes mellitus, type 2 (HCC) Obesity 04/05/2013 DX:Obesity; COMM ENT: HTN (hypertension) 04/03/2005 DX:HTN (hyper tension) Hypercholesterolemia 11/13/2007 DX:Hypercho lesterolemia Atherosclerosis of both carotid arteries 3 DX:Atherosclerosis of both carotid arteries Shoulder pain 09/11/2012 DX:Shoulder pain 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 Father (Age 36) [place]/CAD, roach dden cardiac Maternal Grandmother (Age 69) Di abetes Mother (Age 63) DM, CAD, C VA (endarterectomy at 50), valve dz Paternal Grandfather (Age 70) He art disease Paternal Grandmother Polio Sister 1 Alive One sister with diabetes and hypertension Sister 2 Alive x2 healthy Uncle heart dz Social History Tobacco Use Types Packs/Day Years Used Date Smoking Tobacco: Never Smokeless Tobacco: Never Alcohol Use Standard Drinks/Week Comments No 0 (1 standard drink = 0.6 oz pur e alcohol) Comments Unknown Sex and Gender Information Value Date Recorded Sex Assigned at Not on file Legal Sex Female 9:10 PM EST Gender Identity Not on file Sexual Orientation Not on file Obstetrics History Plan of Treatment Health Maintenance Due Date Last Done Comments Cervical Cancer Screening: Pap Smear 1981 Hepatitis B Vaccines (3 of 3 - 19+ 3-dose series) 2007 02/11/2007, 01/06/2007 Pneumococcal Vaccine: 50+ Years (2 of 2 - PCV) 02/11/2015 02/11/2014 Breast Cancer Screening 06/20/2022 06/20/2020, 05/10 COVID-19 Vaccine (3 - 2023- season) 2023 05/15/2020, 05/05/2020 Influenza Vaccine (#1) 2023 , 12/12/2018, 12/15/2013, Additional history exists DTaP,Tdap,and Td Vaccines (3 - Td or Tdap) 02/03/2027 02/03/2017, 09/26/2006 RSV Immunization Patients 60+ Years Old (1 - 1-dose 75+ series) 07/09/2035 Pneumococcal Vaccine: Pediatrics (0 to 5 Years) and At-Risk Patients (6 to 64 Years) Aged Out 02/11/2014 No longer eligible based on patient's age to complete this topic Zoster Vaccines Completed 04/04/2019, 12/12/2018 HIB Vaccines Aged Out No longer eligi ble based on patient's age to complete this topic HPV Vaccines Aged Out No longer eligi ble based on patient's age to complete this topic Hepatitis A Vaccines Aged Out No long er eligible based on patient's age to complete this topic IPV Vaccines Aged Out No longer eligi ble based on patient's age to complete this topic MMR Vaccines Aged Out No longer eligi ble based on patient's age to complete this topic Meningococcal ACWY Vaccine Aged Out N o longer eligible based on patient's age to complete this topic Meningococcal B Vacine Aged Out No lo nger eligible based on patient's age to complete this topic RSV Immunization Patients Under 20 months Aged Out No longer eligible based on patient's age to complete this topic Varicella Vaccines Aged Out No longer eligible based on patient's age to complete this topic Procedures Procedure Name Priority Date/Time Associated Diagnosis Comments [facility] SCREENING DIGITAL Routine 06/20/2020 9:00 AM EDT Encounter for screening mammogram for malignant neoplasm of breast from Last 3 Months or Most Recently Relevant to Health Maintenance Results * [facility] SCREENING DIGITAL (06/20/2020 9:00 AM EDT) Anatomical Region Laterality Modality Mammography 06/20/2020 7:01 AM EDT Narrative 06/20/2020 9:00 AM EDT [facility] Diagnostic Imaging Department [address] [place] [id number] Patient: ??MARIELY KRUSE ?/Age/Sex: 1960 - 59 - F Unit#: ??[id number] ? Location/Status: ??SPDIMAM/REG CLI ? Mnemonic/Ordering Site: ??DIGSC/SPMAM Ordering Physician: ??JOSEPH DOBBINS MD [facility] Screening Digital - 06/20/20730 EXAM: [facility] Scre[facility] Digital EXAM DATE AND TIME: 06/20/2020 7:31 AM HISTORY: ??Screening. Maternal aunt had breast carcinoma in her 70's. COMPARISON: ??05/10/19, 05/02/17, 07/06/15 TECHNIQUE: CC and MLO views of both breasts were obtained using full field digital mammography. Bilateral digital breast tomosynthesis was performed in the MLO projection. Computer aided detection with the [employer] 7.2-Sokrati was employed. TISSUE DENSITY: b. There are scattered areas of fibroglandular density. FINDINGS: No suspicious masses, grouped microcalcifications, or areas of architectural distortion are seen. The skin and vascularity are unremarkable. IMPRESSION: Stable mammographic appearance of the breasts. ??No evidence of malignancy is seen. A negative mammogram in the presence of a clinically suspicious palpable abnormality does not preclude the possibility of malignancy or alter the indications for biopsy. BI-RADS: ??Category 1: Negative RECOMMENDATION(S): 1: Routine screening mammogram BILATERAL in 1 year. 26034, 32038 3341F, 7025F Dictating Physician: ??THERESA SANDERSON MD Electronically Signed by: ??THERESA SANDERSON MD Dic Date/Time: ??06/20/20899 Sign date/Time: ??06/20/20899 Procedure Note Theresa Sanderson MD - 03/12/2022 [facility] Diagnostic Imaging Department [address] [place], [place] [id number] Patient: MARIELY KRUSE /Age/Sex: 1960 - 59 - F Unit#: [id number] Location/Status: SPDIMAM/REG CLI Mnemonic/Ordering Site: [facility] Ordering Physician: JOSEPH DOBBINS MD [facility] Screening Digital - 06/20/20730 EXAM: [facility] Screening Digital EXAM DATE AND TIME: 06/20/2020 7:31 AM HISTORY: Screening. Maternal aunt had breast carcinoma in her 70's. COMPARISON: 05/10/19, 05/02/17, 07/06/15 TECHNIQUE: CC and MLO views of both breasts were obtained using fullfield digital mammography. Bilateral digital breast tomosynthesis was performedin the MLO projection. Computer aided detection with the m-Care Technology 7.2-gogamingoas employed. TISSUE DENSITY: b. There are scattered areas of fibroglandular density. FINDINGS: No suspicious masses, grouped microcalcifications, or areas ofarchitectural distortion are seen. The skin and vascularity are unremarkable. IMPRESSION: Stable mammographic appearance of the breasts. No evidence of malignancyis seen. A negative mammogram in the presence of a clinically suspicious palpable abnormality does not preclude the possibility of malignancy or alter the indications for biopsy. BI-RADS: Category 1: Negative RECOMMENDATION(S): 1: Routine screening mammogram BILATERAL in 1 year. [address]707, [address] 3341F, 7025F Dictating Physician: THERESA SANDERSON MD Electronically Signed by: THERESA SANDERSON MD Dic Date/Time: 06/20/20 0900 Sign date/Time: 06/20/20899 us Joseph Dobbins MD IMG BI PROCEDURES Final Resul t from Last 3 Months or Most Recently Relevant to Health Maintenance Advance Directives Documents on File Type Date Recorded Patient Mailing Machine Helper Expl anation Health Care Decision (hx) 07/24/2017 AD ALBRECHT DIRECTIVE Health Care Decision (hx) 07/24/2017 AD ALBRECHT DIRECTIVE Care Teams Investigative Shopper Relationship Specialty Start Date End Date Michelle Peralta DO PCP - General Fur Sorter 06/02/17
--- OUTSIDE RECORDS SUMMARY | 2024-06-07 07:58 | XMS_ITS | Encounter Summary ---
Author Organization [facility] Address [address] [place] [address] Care Team Providers Care Soil Science Teacher Name Role Phone Michelle Fine DO Primary Care Pro vider Unavailable Joseph Boyce MD Primary Care Provider Nelida Villanueva, Pcp Primary Care Provider Lenora anders Encounter Details Date Type Department Care Team Description 01/28/2019 Release of Information Medical Records [address] [place] [id number] Abstract, Provider Social History Tobacco Use Types [...] on filedocumented in this encounter Care Teams Soil Science Teacher Relationship Specialty Start Date End Date Michelle Fine DO PCP - General Internal Medicine 06/12/15 04/28/19 Joseph Boyce MD PCP - General Internal Medicine 04/29/19 05/29/21 [facility], Pcp PCP - General Internal Medicine 05/30/21 documented as of this encounter
--- OUTSIDE RECORDS SUMMARY | 2024-06-07 07:58 | XMS_ITS | Encounter Summary ---
Author Organization [facility] Address [address] [place] [address] Care Team Providers Care Biometrics Analyst Name Role Phone Michelle Fine DO Primary Care Pro vider Joseph Aguayo MD Primary Care Provider Nelida Villanueva, Pcp Primary Care Provider Lenora e Reason for Referral * Non DUNIA (Routine) - Authorized/Booked Specialty Diagnoses / Procedures Referred By Gaby alba Referred To Contact Endocrinology Procedures REFERRAL TO ENDOCRINOLOGY Michelle Fine DO [address] [place] [address] Leticia Cabrera NP [address] [place] [address] Referral ID Status Reason Start Date Expiration Date V isits Requested Visits Authorized [id number] Authorized/B ooked 07/23/2015 07/22/2016 1 1 Encounter Details Date Type Department Care Team Description 07/23/2015 Orders Only Adult Medicine [address] [address] Michelle Fine DO Social History Tobacco Use [...] on filedocumented in this encounter Care Teams Biometrics Analyst Relationship Specialty Start Date End Date Michelle Fine DO PCP - General Internal Medicine 06/12/15 04/28/19 Joseph Boyce MD PCP - General Internal Medicine 04/29/19 05/29/21 [facility], Pcp PCP - General Internal Medicine 05/30/21 documented as of this encounter
--- OUTSIDE RECORDS SUMMARY | 2024-06-07 07:58 | XMS_ITS | Encounter Summary ---
Author Organization [facility] Address [address] [place] [address] Care Team Providers Care Final Inspector And Tester Name Role Phone Konstantin Sinha MD Primary Care Provider Unavail able Michelle Fine DO Primary Care Pro vider Unavailable Joseph Boyce MD Primary Care Provider [facility], Pcp Primary Care Provider Unavailabl e Reason for Visit * Reason Onset Date Comments radiology 04/07/2012 Encounter Details Date Type Department Care Team Description 04/07/2012 Telephone Adult Medicine [address] [address] Konstantin Sinha MD radiology Social History Tobacco Use Types Packs/Day Years Used Date Smoking Tobacco: Never Smokeless Tobacco: Never Alcohol Use Standard Drinks/Week Comments No 0 (1 standard drink = 0.6 oz pur e alcohol) Sex Assigned at Date Recorded Not on file documented as of this encounter Miscellaneous Notes * Telephone Encounter - Blaire Melendez PA-C - 04/07/2012 12:55 PM EST Signed. * Telephone Encounter - Dipika Carlton L.P.N. - 04/07/2012 9:25 AM EST Please sign x-ray for Dr Scruggs. documented in this encounter Plan of Treatment Not on file documented as of this encounter Results * [facility] RAD[facility] SPINE CERVICAL 3 VIEWS OR LESS (04/07/2012 3:41 PM EST) Impressions Yehuda Schmidt MD - 04/07/2012 5:34 PM EST : Degenerative changes most pronounced at C3-C4 and C5-C6. Atherosclerosis. Narrative Yehuda Schmidt MD - 04/07/2012 5:34 PM EST Cervical spine, 3 views HISTORY: Neck pain. PRIORS: None. FINDINGS: The vertebral bodies are normally aligned. No fractures are seen. Vertebral body heights are normal. There is disc space narrowing, adjacent endplate spurring, and sclerotic changes at C5-C6. Anterior annular or disc calcification is seen at C3-C4. The dens appears intact. Atherosclerotic ossifications are seen projecting over the soft tissues in the expected locations of the carotid bulbs. Procedure Note Yehuda Schmidt MD - 04/07/2012 Cervical spine, 3 views HISTORY: Neck pain. PRIORS: None. FINDINGS: The vertebral bodies are normally aligned. No fractures are seen.Vertebral body heights are normal. There is disc space narrowing, adjacentendplate spurring, and sclerotic changes at C5-C6. Anterior annular ordisc calcification is seen at C3- C4. The dens appears intact.Atherosclerotic ossifications are seen projecting over the soft tissues inthe expected locations of the carotid bulbs. IMPRESSION: Degenerative changes most pronounced at C3-C4 and C5-C6.Atherosclerosis. [facility] documented in this encounter Visit Diagnoses Diagnosis Nonallopathic lesion of cervical region, not elsewhere classified- Primary Nonallopathic lesion of cervical region, not elsewhere classified documented in this encounter Care Teams Final Inspector And Tester Relationship Specialty Start Date End Date Konstantin Sinha MD PCP - General 11/26/1994 06/11/15 Michelle Fine DO PCP - General Internal Medicine 06/12/15 04/28/19 Joseph Boyce MD PCP - General Internal Medicine 04/29/19 05/29/21 [facility], Pcp PCP - General Internal Medicine 05/30/21 documented as of this encounter
--- OUTSIDE RECORDS SUMMARY | 2024-06-07 07:58 | XMS_ITS | Encounter Summary ---
Author Organization [facility] Address [address] [place] [address] Care Team Providers Care Regional Forester Name Role Phone Michelle Fine DO Primary Care Pro vider Unavailable Joseph Boyce MD Primary Care Provider Nelida Villanueva, Pcp Primary Care Provider Lenora anders Encounter Details Date Type Department Care Team Description 04/29/2018 Orders Only Adult Medicine [address] [address] Michelle Fine DO Social History Tobacco Use [...] on filedocumented in this encounter Care Teams Regional Forester Relationship Specialty Start Date End Date Michelle Fine DO PCP - General Internal Medicine 06/12/15 04/28/19 Joseph Boyce MD PCP - General Internal Medicine 04/29/19 05/29/21 [facility], Pcp PCP - General Internal Medicine 05/30/21 documented as of this encounter
--- OUTSIDE RECORDS SUMMARY | 2024-06-07 07:58 | XMS_ITS | Encounter Summary ---
Author Organization [facility] Address [address] [place] [address] Care Team Providers Care Alternative Medicine Practitioner Name Role Phone Michelle Fine DO Primary Care Pro vider Joseph Aguayo MD Primary Care Provider Nelida Villanueva, Pcp Primary [facility] Reason for Visit * Reason Onset Date Comments LAB WORK 04/14/2019 Orders Call 04/14/2019 Encounter Details Date Type Department Care Team Description 04/14/2019 Telephone Adult [address] [address] Michelle Fine DO LAB WORK; Orders Call Social History Tobacco Use Types Packs/Day Years Used Date Smoking Tobacco: Never Smokeless Tobacco: Never Alcohol Use Standard Drinks/Week Comments No 0 (1 standard drink = 0.6 oz pur e alcohol) Sex Assigned at Date Recorded Not on file documented as of this encounter Miscellaneous Notes * Telephone Encounter - Michelle Collins DO - 04/22/2019 10:38 AM EST Fasting labs ordered * Telephone Encounter - Lazara Ford - 04/21/2019 8:44 AM EST Pt checking on status of labs * Telephone Encounter - Adrianne Aranda M.A. - 04/14/2019 12:17 PM EST Pt's last ov 01/22/19 asking her diabetic labs to be ordered * Telephone Encounter - Ktat Avalos - 04/14/2019 12:11 PM EST Patient calling to request labs be ordered: What lab work is patient requesting? Diabetic blood work. Does patient have an upcoming appointment, if yes when and WITH WHO? no Patients PCP is: Michelle Peralta documented in this encounter Plan of Treatment Not on file documented as of this encounter Results * LIPID PROFILE (05/03/2019 8:57 AM EST) Cholesterol 151 0 - 200 mg/dL 05/03/2019 12:44 PM EST [facility] HDL CHOLESTEROL 67 >40 mg/dL 0 12:44 PM EST [facility] TC-HDLC RATIO 2.3 0 - 4.4 mg/dL 05/03/2019 12:44 PM EST [facility] TRIGLYCERIDES 117 0 - 150 mg/dL 05/03/2019 12:45 PM EST [facility] LDL CALCULATED 61 0 - 100 mg/dL 05/03/2019 12:45 PM EST [facility] 05/03/2019 8:57 AM EST 05/03/2019 8:58 AM EST Michelle Collins DO LAB [facility] * BASIC METABOLIC PANEL (05/03/2019 8:57 AM EST) GLUCOSE 85 70 - 100 mg/dL 05/03/2019 12:44 PM EST [facility] Comment:Reference range appl icable to fasting specimens only Blood Urea Nitrogen 16 5 - 25 mg/dL 05/03/2019 12:44 PM EST [facility] CREAT 0.77 0.5 - 1.1 mg/dL 05/03/2019 12:44 PM EST [facility] GLOMERULAR FILTRATION RATE > 60 05/03/2019 12:44 PM EST [facility] Comment: If patient is -Gambian, multiply result by 1.21 Chronic Kidney Disease: < 60 ml/min/1.73 square meters Kidney Failure: < 15 ml/min/1.73 square meters NA 141 135 - 145 mEq/L 05/03/2019 12:44 PM EST [facility] K 4.2 3.5 - 5.5 mmol/L 05/03/2019 12:44 PM EST [facility] CL 105 96 - 110 mmol/L 05/03/2019 12:44 PM EST [facility] CARBON DIOXIDE (CO2) 29 21 - 32 mmol/L 05/03/2019 12:44 PM EST [facility] ANION GAP 7 3 - 11 05/03/2019 12:44 PM EST [facility] CALCIUM 9.0 8.5 - 10.5 mg/dL 05/03/2019 12:44 PM EST [facility] 05/03/2019 8:57 AM EST 05/03/2019 8:58 AM EST Michelle Collins DO LAB [facility] * HEMOGLOBIN A1C (05/03/2019 8:57 AM EST) GLYCATED HEMOGLOBIN A1C 6.0 <6.5 % 05/03/2019 1:26 PM EST [facility] ESTIMATED AVERAGE GLUCOSE 126 mg/dL 05/03/2019 1:26 PM EST [facility] 05/03/2019 8:57 AM EST 05/03/2019 8:58 AM EST Michelle Collins DO LAB [facility] documented in this encounter Visit Diagnoses Diagnosis Essential hypertension- Primary Unspecified essential hypertension Type 2 diabetes mellitus without complication, unspecified whether [facility] insulin use (HCC) documented in this encounter Care Teams Alternative Medicine Practitioner Relationship Specialty Start Date End Date Michelle Fine DO PCP - General Internal Medicine 06/12/15 04/28/19 Joseph Boyce MD PCP - General Internal Medicine 04/29/19 05/29/21 [facility], Pcp PCP - General Internal Medicine 05/30/21 documented as of this encounter
--- OUTSIDE RECORDS SUMMARY | 2024-06-07 07:58 | XMS_ITS | Encounter Summary ---
Author Organization [facility] Address [address] [place] [address] Care Team Providers Care Pantry Worker Name Role Phone Konstantin Sinha MD Primary Care Provider Unavail able Michelle Fine DO Primary Care Pro vider Unavailable Joseph Boyce MD Primary Care Provider Nelida roberts [facility], Pcp Primary Care Provider Unavailcharissa e Encounter Details Date Type Department Care Team Description 12/07/2010 Release of Information Orthopedic Surgery - [address] [place] [id number] Abstract, Provider Social History Tobacco Use Types [...] on filedocumented in this encounter Care Teams Pantry Worker Relationship Specialty Start Date End Date Konstantin Sinha MD PCP - General 11/26/1994 06/11/15 Michelle Fine DO PCP - General Internal Medicine 06/12/15 04/28/19 Joseph Boyce MD PCP - General Internal Medicine 04/29/19 05/29/21 [facility], Pcp PCP - General Internal Medicine 05/30/21 documented as of this encounter
--- OUTSIDE RECORDS SUMMARY | 2024-06-07 07:58 | XMS_ITS | Encounter Summary ---
Author Organization [facility] Address [address] [place] [address] Care Team Providers Care Cloth Mender Name Role Phone Michelle Fine DO Primary Care Pro vider Joseph Aguayo MD Primary Care Provider Nelida Villanueva, Pcp Primary Care Provider Lenora e Reason for Visit * Reason Onset Date Comments Orders Call 03/29/2019 Encounter Details Date Type Department Care Team Description 03/29/2019 Pt. Non Urgent Medic al Question Adult Medicine [address] [address] Michelle Fine DO Social History Tobacco Use Types Packs/Day Years Used Date Smoking Tobacco: Never Smokeless Tobacco: Never Alcohol Use Standard Drinks/Week Comments No 0 (1 standard drink = 0.6 oz pur e alcohol) Sex Assigned at Date Recorded Not on file documented as of this encounter Miscellaneous Notes * Telephone Encounter - Adrianne Aranda M.A. - 03/30/2019 7:17 AM ESTFrom: aMriely Rodriguez To: Michelle Collins DO Sent: 03/29/2019 8:19 PM EST Subject: Blood work Hi Dr Zamorano, You asked me to send you a message once I started using the Bydureon for a couple of months. I havebeen using it for 9 weeks. You were going to order blood work so that I can get an updated A1c to determine if there is any change in blood sugar control with this med compared to the Marc toza. Personally, I prefer the daily Victoza, less pain, easier management of the injectable medication and the Bydureon leaves small lumps that last a few weeks but eventually go away. Blood sugar controlseems about the same. I'll need to order a refill for this med but want to be sure it's working ok before I request the refill. If you could place the order for the blood work, I will go in the next 7-10 days if you agree. Thank you, Mariely documented in this encounter Plan of Treatment Not on file documented as of this encounter Visit Diagnoses Not on filedocumented in this encounter Care Teams Cloth Mender Relationship Specialty Start Date End Date Michelle Fine DO PCP - General Internal Medicine 06/12/15 04/28/19 Joseph Boyce MD PCP - General Internal Medicine 04/29/19 05/29/21 [facility], Pcp PCP - General Internal Medicine 05/30/21 documented as of this encounter
--- OUTSIDE RECORDS SUMMARY | 2024-06-07 07:58 | XMS_ITS | Encounter Summary ---
Author Organization [facility] Address [address] [place] [address] Care Team Providers Care Business Development Director Name Role Phone Michelle Fine DO Primary Care Pro vider Unavailable Joseph Boyce MD Primary Care Provider Nelida Villanueva, Pcp Primary Care Provider Lenora anders Encounter Details Date Type Department Care Team Description 03/31/2017 Respiratory Practitioner Report Medical Records [address] [place] [id number] Jae Wynne Social History Tobacco Use Types Packs/Day Years [...] on filedocumented in this encounter Care Teams Business Development Director Relationship Specialty Start Date End Date Michelle Fine DO PCP - General Internal Medicine 06/12/15 04/28/19 Joseph Boyce MD PCP - General Internal Medicine 04/29/19 05/29/21 [facility], Pcp PCP - General Internal Medicine 05/30/21 documented as of this encounter
--- OUTSIDE RECORDS SUMMARY | 2024-06-07 07:58 | XMS_ITS | Encounter Summary ---
Author Organization [facility] Address [address] [place] [address] Care Team Providers Care Launderette Attendant Name Role Phone Michelle Fine DO Primary Care Pro vider Unavailable Joseph Boyce MD Primary Care Provider Nelida Villanueva, Pcp Primary Care Provider Lenora anders Encounter Details Date Type Department Care Team Description 10/29/2017 Ragman Report Medical Records [address] [place] [id number] Brianna Mcdonough PA-C Social History Tobacco Use Types Packs/Day [...] on filedocumented in this encounter Care Teams Launderette Attendant Relationship Specialty Start Date End Date Michelle Fine DO PCP - General Internal Medicine 06/12/15 04/28/19 Joseph Boyce MD PCP - General Internal Medicine 04/29/19 05/29/21 [facility], Pcp PCP - General Internal Medicine 05/30/21 documented as of this encounter
--- OUTSIDE RECORDS SUMMARY | 2024-06-07 07:58 | XMS_ITS | Encounter Summary ---
Author Organization [facility] Address [address] [place] [address] Care Team Providers Care Collet Gluer Name Role Phone Michelle Fine DO Primary Care Pro vider Joseph Aguayo MD Primary Care Provider Nelida roberts [facility], Pcp Primary Care Provider [facility]ailformerly [facility] Reason for Visit * Reason Onset Date Comments Door Maker Feedback 10/27/2017 orthopedics Encounter Details Date Type Department Care Team Description 10/27/2017 Telephone Adult Medicine [address] [address] Michelle Fine DO Door Maker Feedback (orthopedics) Social History Tobacco Use Types Packs/Day Years Used Date Smoking Tobacco: Never Smokeless Tobacco: Never Alcohol Use Standard Drinks/Week Comments No 0 (1 standard drink = 0.6 oz pur e alcohol) Sex Assigned at Date Recorded Not on file documented as of this encounter Miscellaneous Notes * Telephone Encounter - Sandra Thayer - 10/27/2017 11:17 AM EDT images sent to orthopacs t.s * Telephone Encounter - Addis Howard - 10/27/2017 11:09 AM EDT Please when able push to orthopacs x-ray of shoulder 10/26/17 for an upcoming appt with [facility]. Thank you Addis Referrals Coordinator documented in this encounter Plan of Treatment Not on file documented as of this encounter Visit Diagnoses Not on filedocumented in this encounter Care Teams Collet Gluer Relationship Specialty Start Date End Date Michelle Fine DO PCP - General Internal Medicine 06/12/15 04/28/19 Joseph Boyce MD PCP - General Internal Medicine 04/29/19 05/29/21 [facility], Pcp PCP - General Internal Medicine 05/30/21 documented as of this encounter
--- OUTSIDE RECORDS SUMMARY | 2024-06-07 07:58 | XMS_ITS | Encounter Summary ---
Author Organization [facility] Address [address] [place] [address] Care Team Providers Care Freight Adjuster Name Role Phone Michelle Fine DO Primary Care Pro vider Unavailable Joseph Boyce MD Primary Care Provider Nelida Villanueva, Pcp Primary Care Provider Lenora anders Encounter Details Date Type Department Care Team Description 04/25/2017 Commissioning Engineer Report Medical Records [address] [place] [id number] Abstract, Provider Social History Tobacco Use Types [...] on filedocumented in this encounter Care Teams Freight Adjuster Relationship Specialty Start Date End Date Michelle Fine DO PCP - General Internal Medicine 06/12/15 04/28/19 Joseph Boyce MD PCP - General Internal Medicine 04/29/19 05/29/21 [facility], Pcp PCP - General Internal Medicine 05/30/21 documented as of this encounter
--- OUTSIDE RECORDS SUMMARY | 2024-06-07 07:58 | XMS_ITS | Encounter Summary ---
Author Organization [facility] Address [address] [place] [address] Care Team Providers Care Deployment Manager Name Role Phone Michelle Fine DO Primary Care Pro vider Unavailable Joseph Boyce MD Primary Care Provider Nelida Villanueva, Pcp Primary Care Provider Lenora anders Encounter Details Date Type Department Care Team Description 11/13/2017 Release of Information Medical Records [address] [place] [id number] Abstract, Provider Social History Tobacco Use Types [...] on filedocumented in this encounter Care Teams Deployment Manager Relationship Specialty Start Date End Date Michelle Fine DO PCP - General Internal Medicine 06/12/15 04/28/19 Joseph Boyce MD PCP - General Internal Medicine 04/29/19 05/29/21 [facility], Pcp PCP - General Internal Medicine 05/30/21 documented as of this encounter
--- OUTSIDE RECORDS SUMMARY | 2024-06-07 07:58 | XMS_ITS | Encounter Summary ---
Author Organization [facility] Address [address] [place] [address] Care Team Providers Care Patternmaker Plastics Name Role Phone Michelle Fine DO Primary Care Pro vider Unavailable Joseph Boyce MD Primary Care Provider Nelida Villanueva, Pcp Primary Care Provider Lenora anders Encounter Details Date Type Department Care Team Description 01/14/2019 [facility] [address] [place] [id number] Md Emre Social History Tobacco Use Types Packs/Day Years [...] on filedocumented in this encounter Care Teams Patternmaker Plastics Relationship Specialty Start Date End Date Michelle Fine DO PCP - General Internal Medicine 06/12/15 04/28/19 Joseph Boyce MD PCP - General Internal Medicine 04/29/19 05/29/21 [facility], Pcp PCP - General Internal Medicine 05/30/21 documented as of this encounter
--- OUTSIDE RECORDS SUMMARY | 2024-06-07 07:58 | XMS_ITS | Encounter Summary ---
Author Organization [facility] Address [address] [place] [address] Care Team Providers Care Clinical Office Technician Name Role Phone Michelle Fine DO Primary Care Pro vider Unavailable Joseph Boyce MD Primary Care Provider Nelida Villanueva, Pcp Primary Care Provider Lenora anders Encounter Details Date Type Department Care Team Description 08/04/2017 Health Safety Instructor Report Medical Records [address] [place] [address] Tatyana Baets PA-C [address] [place] [address] [address] [place] [address] Social History Tobacco Use Types Packs/Day Years [...] on filedocumented in this encounter Care Teams Clinical Office Technician Relationship Specialty Start Date End Date Michelle Fnie DO PCP - General Internal Medicine 06/12/15 04/28/19 Joseph Boyce MD PCP - General Internal Medicine 04/29/19 05/29/21 [facility], Pcp PCP - General Internal Medicine 05/30/21 documented as of this encounter
--- OUTSIDE RECORDS SUMMARY | 2024-06-07 07:58 | XMS_ITS | Encounter Summary ---
Author Organization [facility] Address [address] [place] [address] Care Team Providers Care Electric Motor Controls Assembler Name Role Phone Konstantin Sinha MD Primary Care Provider Unavail able Michelle Fine DO Primary Care Pro vider Unavailable Joseph Boyce MD Primary Care Provider Nelida roberts [facility], Pcp Primary Care Provider Lenora anders Encounter Details Date Type Department Care Team Description 11/16/2012 Pt. Referral Request [facility] MyChart [address] [place] [id number] Md Emre Social History Tobacco Use Types [...] on filedocumented in this encounter Care Teams Electric Motor Controls Assembler Relationship Specialty Start Date End Date Konstantin Sinha MD PCP - General 11/26/1994 06/11/15 Michelle Fine DO PCP - General Internal Medicine 06/12/15 04/28/19 Joseph Boyce MD PCP - General Internal Medicine 04/29/19 05/29/21 [facility], Pcp PCP - General Internal Medicine 05/30/21 documented as of this encounter
--- OUTSIDE RECORDS SUMMARY | 2024-06-07 07:58 | XMS_ITS | Encounter Summary ---
Author Organization [facility] Address [address] [place] [address] Care Team Providers Care Ux Design Lead Name Role Phone Joseph Boyce MD Primary Care Provider Nelida roberts [facility], Pcp Primary Care [facility] Reason for Visit * Reason Onset Date Comments Nazia 04/12/2020 BC/BS DM and hyp ertension follow up Encounter Details Date Type Department Care Team Description 04/12/2020 Telephone Adult Medicine [address] [address] Joseph Boyce MD Hedis (BC/BS DM and hypertension follow up) Social History Tobacco Use Types Packs/Day Years Used Date Smoking Tobacco: Never Smokeless Tobacco: Never Alcohol Use Standard Drinks/Week Comments No 0 (1 standard drink = 0.6 oz pur e alcohol) Sex Assigned at Date Recorded Not on file documented as of this encounter Miscellaneous Notes * Telephone Encounter - Rita Boyle - 04/12/2020 9:20 AM EST Patient is due for a hypertension follow up and DM f/up at the end of April Please schedule thisappointment. Left patient a voice mail. Asked patient to return call to office. Please advised patient as [phone] documented in this encounter Plan of Treatment Not on file documented as of this encounter Results * (ABNORMAL) HEMOGLOBIN A1C (05/22/2020 7:43 AM EST) GLYCATED HEMOGLOBIN A1C 6.6(H) <6.5 % 05/22/2020 11:40 AM EST [facility] ESTIMATED AVERAGE GLUCOSE 143 mg/dL 05/22/2020 11:40 AM EST [facility] 05/22/2020 7:43 AM EST 05/22/2020 7:43 AM EST Joseph Boyce MD LAB [facility] documented in this encounter Visit Diagnoses Diagnosis Type 2 diabetes mellitus without complication, unspecified whether [facility] insulin use (HCC)- Primary documented in this encounter Care Teams Ux Design Lead Relationship Specialty Start Date End Date Joseph Boyce MD PCP - General Internal Medicine 04/29/19 05/29/21 [facility] PCP - General Internal Medicine 05/30/21 documented as of this encounter
--- OUTSIDE RECORDS SUMMARY | 2024-06-07 07:58 | XMS_ITS | Encounter Summary ---
Author Organization [facility] Address [address] [place] [address] Care Team Providers Care Mailroom Messenger Name Role Phone Michelle Fine DO Primary Care Pro vider Joseph Aguayo MD Primary Care Provider Nelida Villanueva, Pcp Primary Care Provider Lenora e Encounter Details Date Type Department Care Team Description 01/14/2019 Orders Only Adult Medicine [address] [address] Michelle Fine DO Type 2 diabetes mellitus without complication, unspecified whether skilled nursing insulin use (HCC) (Primary Dx); Essential hypertension; Hypercholesterolemia; B12 deficiency; H/O vitamin D deficiency Social History Tobacco Use Types Packs/Day Years Used Date Smoking Tobacco: Never Smokeless Tobacco: Never Alcohol Use Standard Drinks/Week Comments No 0 (1 standard drink = 0.6 oz pur e alcohol) Sex Assigned at Date Recorded Not on file documented as of this encounter Plan of Treatment Not on file documented as of this encounter Results * VITAMIN B-12, ASSAY (01/21/2019 10:36 AM EDT) VITAMIN B12 339 250 - 900 pg/mL 01/21/2019 1:53 PM EDT [facility] 01/21/2019 10:3 6 AM EDT 01/21/2019 10:37 AM EDT Michelle Collins DO LAB [employer] * (ABNORMAL) CBC (AUTO DIFF PLATELET) (01/21/2019 10:36 AM EDT) WHITE BLOOD COUNT 7.9 4.8 - 10.8 x10-3/uL 01/21/2019 1:28 PM EDT [facility] RED BLOOD COUNT 4.9(H) 3.8 - 4.8 x10-6/uL 01/21/2019 1:28 PM EDT [facility] Hemoglobin 13.6 11.5 - 16.0 g/dL 01/21/2019 1:28 PM EDT [facility] Hematocrit 42.6 35 - 47 % 01/21/2019 1:28 PM EDT [facility] MEAN CORPUSCULAR VOLUME 87.3 79 - 98 fL 01/21/2019 1:28 PM EDT [facility] MEAN CORPUSCULAR HEMOGLOBIN 27.9 27 - 32 pg 01/21/2019 1:28 PM EDT [facility] MEAN CORPUS[employer]ULAR HGB CONC 31.9(L) 32 - 37 g/dL 01/21/2019 1:28 PM EDT [facility] RED CELL DISTRIBUTION WIDTH 13.5 11 - 15 % 01/21/2019 1:28 PM EDT [facility] PLT COUNT 257 130 - 400 x10-3/uL 01/21/2019 1:28 PM EDT [facility] MEAN PLATELET VOLUME 10.3 7 - 11 fL 01/21/2019 1:28 PM EDT [facility] NRBC % AUTO 0.0 <1 % 01/21/2019 1:28 PM EDT [facility] NEUTROPHILS % 61.0 % 01/21/2019 1:28 PM EDT [facility] LYMPH % 26.8 % 01/21/2019 1:28 PM EDT [facility] MONO % 9.0 % 01/21/2019 1:28 PM EDT [facility] EOS % 2.0 % 01/21/2019 1:28 PM EDT [facility] BASO % 0.9 % 01/21/2019 1:28 PM EDT [facility] IMMATURE GRANULOCYTES % 0.3 % 01/21/2019 1:28 PM EDT [facility] NRBC # AUTO 0.00 <0.1 x10-3/uL 01/21/2019 1:28 PM EDT [facility] NEUT # 4.84 1.5 - 7.0 x10-3/uL 01/21/2019 1:28 PM EDT [facility] LYMPH # 2.12 1 - 5.0 x10-3/uL 01/21/2019 1:28 PM EDT [facility] MONO # 0.71 0.2 - 1.0 x10-3/uL 01/21/2019 1:28 PM EDT [facility] EOS # 0.16 0 - 0.5 x10-3/uL 01/21/2019 1:28 PM EDT [facility] BASO # 0.07 0 - 0.2 x10-3/uL 01/21/2019 1:28 PM EDT [facility] IMMATURE GRANULOCYTES # 0.02 0 - 0.03 x10-3/uL 01/21/2019 1:28 PM EDT [facility] 01/21/2019 10:3 6 AM EDT 01/21/2019 10:37 AM EDT [employer] Performing Organization Address City/[facility]/ZIP Co de Phone Number [facility] * 25 HYDROXY INCLUDES FRACTIONS IF PERFORMED (01/21/2019 10:36 AM EDT) VITAMIN D, 25-HYDROXY 30 30 - 80 ng/mL 01/21/2019 1:38 PM EDT [facility] 01/21/2019 10:3 6 AM EDT 01/21/2019 10:37 AM EDT [employer] Organization Address City/[facility]/ZIP Co de Phone Number [facility] * LIPID PROFILE (01/21/2019 10:36 AM EDT) Cholesterol 173 0 - 200 mg/dL 01/21/2019 1:31 PM EDT [facility] [employer] TRIGLYCERIDES 126 0 - 150 mg/dL 01/21/2019 1:31 PM EDT [facility] HDL CHOLESTEROL 66 >40 mg/dL 9 1:31 PM EDT [facility] LDL CALCULATED 82 0 - 100 mg/dL 01/21/2019 1:31 PM EDT [facility] TC-HDLC RATIO 2.6 0 - 4.4 mg/dL 01/21/2019 1:31 PM EDT [facility] 01/21/2019 10:3 6 AM EDT 01/21/2019 10:37 AM EDT Michelle Zamorano berejobmini DO LAB [facility] * (ABNORMAL) BASIC METABOLIC PANEL (01/21/2019 10:36 AM EDT) GLUCOSE 61(L) 70 - 100 mg/dL 01/21/2019 1:31 PM EDT [facility] Comment:Reference range appl icable to fasting specimens only Blood Urea Nitrogen 16 5 - 25 mg/dL 01/21/2019 1:31 PM EDT [facility] CREAT 0.82 0.5 - 1.1 mg/dL 01/21/2019 1:31 PM EDT [facility] GLOMERULAR FILTRATION RATE > 60 01/21/2019 1:31 PM EDT [facility] Comment: If patient is -Algerian, multiply result by 1.21 Chronic Kidney Disease: < 60 ml/min/1.73 square meters Kidney Failure: < 15 ml/min/1.73 square meters NA 140 135 - 145 mEq/L 01/21/2019 1:31 PM EDT [facility] K 4.7 3.5 - 5.5 mmol/L 01/21/2019 1:31 PM EDT [facility] CL 105 96 - 110 mmol/L 01/21/2019 1:31 PM EDT [facility] CARBON DIOXIDE (CO2) 27 21 - 32 mmol/L 01/21/2019 1:31 PM EDT [facility] ANION GAP 8 3 - 11 01/21/2019 1:31 PM EDT [facility] CALCIUM 9.3 8.5 - 10.5 mg/dL 01/21/2019 1:31 PM EDT [facility] 01/21/2019 10:3 6 AM EDT 01/21/2019 10:37 AM EDT Michelle Collins DO LAB Performing Organization Address City/[facility]/ZIP Co de Phone Number [facility] * HEMOGLOBIN A1C (01/21/2019 10:36 AM EDT) GLYCATED HEMOGLOBIN A1C 5.9 <6.5 % 01/21/2019 1:48 PM EDT [facility] ESTIMATED AVERAGE GLUCOSE 123 mg/dL 01/21/2019 1:48 PM EDT [facility] 01/21/2019 10:3 6 AM EDT 01/21/2019 10:37 AM EDT Michelle Collins DO LAB Performing Organization Address [facility]/ZIP Co de Phone Number [facility] * MICROALBUMIN/CREATININE, URINE (01/21/2019 10:36 AM EDT) CREATININE, RANDOM URINE 137 mg/dL 01/21/2019 1:48 PM EDT [facility] MICROALBUMIN, RANDOM 11.6 0.0 - 29.0 mg/L 01/21/2019 1:54 PM EDT [facility] MICROALB/CRE RATIO RANDOM 8.4 0.0 - 30.0 mg/G 01/21/2019 1:54 PM EDT [facility] 01/21/2019 10:3 6 AM EDT 01/21/2019 10:36 AM EDT Michelle Collins DO LAB Performing Organization Address City/[facility]/ZIP Co de Phone Number [facility] documented in this encounter Visit Diagnoses Diagnosis Type 2 diabetes mellitus without complication, unspecified whether watermaster insulin use (HCC)- Primary Essential hypertension Unspecified essential hypertension Hypercholesterolemia Pure hypercholesterolemia B12 deficiency Other B-complex deficiencies H/O vitamin D deficiency Personal history of nutritional deficiency documented in this encounter Care Teams Mailroom Messenger Relationship Specialty Start Date End Date Michelle Fine DO PCP - General Internal Medicine 06/12/15 04/28/19 Joseph Boyce MD PCP - General Internal Medicine 04/29/19 05/29/21 [facility], Pcp PCP - General Internal Medicine 05/30/21 documented as of this encounter
--- OUTSIDE RECORDS SUMMARY | 2024-06-07 07:58 | XMS_ITS | Encounter Summary ---
Author Organization [facility] Address [address] [place] [address] Care Team Providers Care Head Porter Baggage Name Role Phone Michelle Fine DO Primary Care Pro vider Unavailable Joseph Boyce MD Primary Care Provider Nelida Villanueva, Pcp Primary Care Provider Lenora anders Encounter Details Date Type Department Care Team Description 10/08/2017 Consumer Loan Processor Report Medical Records [address] [place] [id number] Brianna Mcdonough PA-C Social History Tobacco Use [...] on filedocumented in this encounter Care Teams Head Porter Baggage Relationship Specialty Start Date End Date Michelle Fine DO PCP - General Internal Medicine 06/12/15 04/28/19 Joseph Boyce MD PCP - General Internal Medicine 04/29/19 05/29/21 [facility], Pcp PCP - General Internal Medicine 05/30/21 documented as of this encounter
--- OUTSIDE RECORDS SUMMARY | 2024-06-07 07:58 | XMS_ITS | Encounter Summary ---
Author Organization [facility] Address [address] [place] [address] Care Team Providers Care Health And Wellness Instructor Name Role Phone Michelle Fine DO Primary Care Pro vider Joseph Aguayo MD Primary Care Provider Nelida Villanueva, Pcp Primary Care Provider Lenora anders Encounter Details Date Type Department Care Team Description 01/18/2019 Refill Adult Medicine [address] [address] Michelle Fine DO Social History Tobacco Use Types Packs/Day Years Used Date Smoking Tobacco: Never Smokeless Tobacco: Never Alcohol Use Standard Drinks/Week Comments No 0 (1 standard drink = 0.6 oz pur e alcohol) Sex Assigned at Date Recorded Not on file documented as of this encounter Miscellaneous Notes * Telephone Encounter - Emilia Gregory M.A. - 01/19/2019 3:46 PM EDT Last office visit 10/04/18 Next office visit 01/22/19 Lab Results Component Value Date NA 140 08/12/2018 K 4.5 08/12/2018 CO2 29 08/12/2018 CL 105 08/12/2018 BUN 14 08/12/2018 CREAT 0.75 08/12/2018 GLU 83 08/12/2018 CA 9.6 08/12/2018 GFR > 60 08/12/2018 documented in this encounter Plan of Treatment Not on file documented as of this encounter Visit Diagnoses Diagnosis Hypercholesterolemia Pure hypercholesterolemia documented in this encounter Care Teams Health And Wellness Instructor Relationship Specialty Start Date End Date Michelle Fine DO PCP - General Internal Medicine 06/12/15 04/28/19 Joseph Boyce MD PCP - General Internal Medicine 04/29/19 05/29/21 [facility], Pcp PCP - General Internal Medicine 05/30/21 documented as of this encounter
== END 2024-06-07 07:54 | disposition home or self-care (01) ==
LOC: HO.MAMMO 07:53
PROVIDERS: PCP Internal Medicine; Visit Provider Internal Medicine
DX: Z12.31 Encounter for screening mammogram for malignant neoplasm of breast (principal)
CPT/HCPCS: 77063; 77067

== ENCOUNTER → 2024-06-07 08:00 | Outpatient (BNV) | payer OTHER, SELFPAY | PROVIDERS: PCP Internal Medicine; Visit Provider Internal Medicine | DX: Z12.31 Encounter for screening mammogram for malignant neoplasm of breast (principal) | CPT/HCPCS: 77063; 77067 ==

== ENCOUNTER 2024-06-14 10:27 | Outpatient (AMB) | payer OTHER, SELFPAY ==
[2024-06-14 10:29] VITALS: BP 118/70; PULSE 62; RESP 18; TEMP 36.6; O2SAT 98; BMI 30.1
--- NOTE | 2024-06-14 10:29 | MHC.PC.OV ---
Vital Signs 06/14/24 10:29 Height 5 ft 3 in Weight 170 lb BMI 30.1 BP 118/70 Blood Pressure Location Lt brachial Position Sitting Respiration 18 Pulse 62 Pulse Source Pulse Oximeter Temp 97.9 F Temp Source Oral Pulse Oximetry (%) 98 Oxygen Delivery Method Room Air Intake Visit Reasons: Dog bite left index finger Intake Note: Pt is here today for a sick visit. Pt c/o dog bite on left index finger. Pt states that the area is painful to the touch. Allergies No Known Allergies Allergy (Verified 06/14/24 10:31) Medication List - Last Reconciled 06/14/24 by Soni Marie MD albuterol sulfate 90 mcg/actuation (Ventolin HFA) 1 inh inhalation QID PRN amoxicillin-pot clavulanate 875-125 mg 1 tab PO BID atorvastatin 40 mg PO DAILY blood sugar diagnostic (Contour Next Test Strips) test blood sugar twice per day blood-glucose sensor ([employer] G7 Sensor device) USE DIRECTED TO MONITOR BLOOD SUGARS, change sensor every 10 days cholecalciferol (vitamin D3) 25 mcg PO DAILY docusate sodium 100 mg PO BID empagliflozin (Jardiance) 10 mg PO DAILY [fish oil PO .QD] fluticasone furoate 100 mcg/actuation (Arnuity Ellipta) 1 inh inhalation DAILY gabapentin 100 mg PO BEDTIME hydrochlorothiazide 12.5 mg PO DAILY lisinopril 40 mg PO DAILY metformin 1,000 mg PO BID Ozempic (semaglutide) 2 mg (0.75 mL) subcut QWEEK NS pantoprazole 20 mg PO DAILY triamcinolone acetonide 0.025% 1 appl topical DAILY Tobacco use date assessed: 06/14/24 Dental Screening Dental Screen Date: 06/14/24 Did you have a dental visit in the last 12 months?: Yes Did you have a dental problem in the last 6 months where you did not have access to dental care?: No Was dental information given to patient?: Patient has dentist HPI Dog bite left index finger HPI Details Patient complains of dog bite on the left index finger yesterday. The dog is up to date with rabies vaccine. Patient cleaned the wound still has some small amount of bleeding. She denies fever chills swelling. Type 2 diabetes is controlled on current medications [facility] Medical History GERD (gastroesophageal reflux disease) Diabetes Elevated cholesterol HTN (hypertension) Surgical History Hx of tonsillectomy Hx of gastric bypass History of colposcopy Hx of excision of lamina of cervical vertebra for decompression of spinal cord Hx of colonoscopy Family History Father No problems noted. Mother Diabetes Valvular heart disease CVA (cerebral vascular accident) Social History Household Members Other:: Housing: House Alcohol intake: never Patient Tobacco Use Status: Never used Tobacco e-Cigarette/Vaping Use: Never Used service: No Current occupational status: employed Current occupation: [employer] Cognitive needs: No Hearing needs: No Vision needs: Yes Questionnaire PHQ-9 Over the last 2 weeks, how often have you been bothered by any of the following problems? 1. Little interest or pleasure in doing things: not at all 2. Feeling down, depressed, or hopeless: not at all 3. Trouble falling or staying asleep, or sleeping too much: not at all 4. Feeling tired or having little energy: not at all 5. Poor appetite or overeating: not at all 6. Feeling bad about yourself - or that you are a failure or have let yourself or your family down: not at all 7. Trouble concentrating on things, such as reading the newspaper or watching television: not at all 8. Moving or speaking so slowly that other people could have noticed. Or the opposite - being so fidgety or restless that you have been moving around a lot more than usual: not at all 9. Thoughts that you would be better off or of hurting yourself in some way: not at all Total score: 0 Depression Screening Interpretation: Negative Depression Screening Done: Yes 71049 - PHQ-9 Billing: Yes Source: Developed by Drs. Rober Padilla, Isis Lozano, Olvin Rosas and colleagues, with an educational moriah from [employer]. Thrive Questionnaire Date Thrive assessed: 06/14/24 I am a: Patient What is your living situation today?: I have a steady place to live Within the past 12 months, did the food you bought not last and you didn't have the money to get more?: Never true Within the past 12 months, did you worry whether your food would run out before you got money to buy more?: Never true Do you have trouble paying for medicines?: No Do you have trouble getting transportation to medical appointments?: No Do you have trouble paying your heating and electricity bill?: No Do you have trouble taking care of your child, family member or friend?: No Do you have trouble with day-to-day activities such as bathing, preparing meals, shopping, managing finances, etc.?: No Are you currently unemployed and looking for a job?: No Are you interested in more education?: No Please select the resources that you would like help with: None Currently or been in a relationship where the following occur: No concerns reported THRIVE Score: 0 AUDIT C Alcohol Use Questionnaire (AUDIT-C) 1. How often do you have a drink containing alcohol?: Never 3. How often do you have six or more drinks on one occasion?: Never Total Score: 0 ANGLE-7 AMB Questionnaire ANGLE-7 Date ANGLE - 7 assessed: 12/04/23 Feeling nervous, anxious, or on edge: 0 = Not at all Not being able to stop or control worryin = Not at all Worrying too much about different things: 0 = Not at all Trouble relaxin = Not at all Being so restless that it is hard to sit still: 0 = Not at all Becoming easily annoyed or irritable: 0 = Not at all Feeling afraid as if something awful might happen: 0 = Not at all Total ANGLE-7 score (0-4 normal; 5-9 mild; 10-14 moderate; 15-21 severe): 0 Source: Developed by Drs. Rober Padilla, Isis Lozano, Olvin Rosas and colleagues, with an educational moriah from [employer]. Review of Systems Const All systems reviewed & are unremarkable except as noted in HPI and below Eyes Reports no additional complaints ENT Reports no additional complaints Card Reports no additional complaints Resp Reports no additional complaints GI Reports no additional complaints Reports no additional complaints Physical exam (Primary Care) Vital Signs: Last Vital Signs Temp 97.9 F 06/14/24 10:29 Pulse 62 06/14/24 10:29 Resp 18 06/14/24 10:29 BP 118/70 06/14/24 10:29 Pulse Ox 98 06/14/24 10:29 Oxygen Delivery Method Room Air 06/14/24 10:29 BMI result Body Mass Index 30.1 Tobacco/Smoking Status: Tobacco use Status Tobacco use date assessed 06/14/24 06/14/24 10:53 Patient Tobacco Use Status Never used Tobacco 06/14/24 10:53 e-Cigarette/Vaping Use Never Used 06/14/24 10:31 PHQ-9: PHQ-9 Score PHQ-9: Total score 0 06/14/24 10:53 Depression Screening Interpretation: Negative Thrive Assessment: Date of Thrive Assessment Date Thrive assessed 06/14/24 06/14/24 10:31 Currently or been in a relationship where the following occur: No concerns reported Const General: no acute distress HENMT Head: Yes normal to inspection Resp Effort & Inspection: normal respiratory effort Auscultation: clear to auscultation bilaterally Cardio Rhythm: regular rhythm Heart sounds: S1 normal heart sound present and S2 normal heart sound present Extrem Other: There is a small puncture wound on tip of the left index finger with small amount of bloody discharge Coding Level of Care Code Est Pt Level 3 (94590) Diagnoses Dog bite W54.0XXA DM type 2 (diabetes mellitus, type 2) E11.9 Additional Codes PHQ-9 - 31999 - PHQ-9 Billing: Yes ([id number]) Assessment & Plan Assessment & Plan (1) Dog bite: Code(s): W54.0XXA - Bitten by dog, initial encounter Category: Medical Plan: Wound care discussed with the patient Augmentin 875 b.i.d. for 7 days is prescribed (2) DM type 2 (diabetes mellitus, type 2): Comment: A1c is 5.4, decrease metformin to 500 mg twice a day and continue Ozempic, ADA diet regular physical activity, follow-up in 3 months with a fasting labs before Code(s): E11.9 - Type 2 diabetes mellitus without complications Category: Medical Plan: Continue current medications Medications: New amoxicillin-pot clavulanate 875-125 mg 1 tab PO BID 14 tabs 0RF
== END 2024-06-14 12:36 | disposition home or self-care (01) ==
LOC: HO.HMCC 10:28
PROVIDERS: PCP Internal Medicine; Visit Provider Internal Medicine
DX: E11.9 Type 2 diabetes mellitus without complications (principal); W54.0XXA Bitten by dog, initial encounter

== ENCOUNTER → 2024-06-14 10:27 | Outpatient (BNVA) | payer OTHER, SELFPAY | PROVIDERS: PCP Internal Medicine; Visit Provider Internal Medicine | DX: S61.251A Open bite of left index finger without damage to nail, initial encounter (principal); E11.9 Type 2 diabetes mellitus without complications; W54.0XXA Bitten by dog, initial encounter; Y93.9 Activity, unspecified; Y92.9 Unspecified place or not applicable; Y99.9 Unspecified external cause status | CPT/HCPCS: 96127 ==

== ENCOUNTER 2024-06-24 08:15 | Outpatient (REF) | payer OTHER, SELFPAY ==
--- NOTE | ~2024-06-24 | US_ITS ---
EXAMINATION: US THYROID HISTORY: E04.1 - Nontoxic single thyroid nodule TECHNIQUE: Real-time grayscale ultrasound imaging was performed and images were reviewed. COMPARISON: Comparison is made with the prior examination dated 06/18/2023. FINDINGS: SIZE: The right thyroid lobe measures 6.0 x 1.6 x 1.7 cm. The left thyroid lobe measures 5.2 x 1.3 x 2.1 cm. The isthmus measures 3 mm. FLOW: Flow to the gland is normal. ECHOGENICITY: The echotexture of the gland is homogeneous. NODULES: Again seen is a solitary nodule in the right thyroid lobe as described below: Nodule #: 1 Location: Midportion of the right thyroid lobe measuring 6 x 5 x 5 mm (previously 5 x 5 x 6 mm). Shape: Round (0 points) Margins: Smooth (0 points) Echotexture: Indeterminate (1 point) Composition: Solid (2 points) Calcifications: Macrocalcifications (1 point) Total points: 4 TIRADS: TR4: Moderately suspicious. US/US thyroid IMPRESSION: Stable 6 mm rim calcified nodule in the right thyroid lobe. ACR TI-RADS Guidelines TR1 (0 points): Benign, No follow-up or biopsy required TR2 (2 points): Not Suspicious, No biopsy or follow up indicated TR3 (3 points): Mildly Suspicious, FNA if >= 2.5 cm, Follow if >= 1.5 cm TR4 (4-6 points): Moderately Suspicious, FNA if >= 1.5 cm, Follow if >= 1.0 cm TR5 (>=7 points): Highly Suspicious, FNA if >= 1.0 cm, Follow if >= 0.5 cm Electronically signed by: Rober Flores MD 06/24/2024 09:18 AM EDT
--- OUTSIDE RECORDS SUMMARY | 2024-06-24 08:20 | XMS_ITS | Encounter Summary ---
Author Organization [facility] Address [address] [place] [address] Care Team Providers Care Special Needs Child Caregiver Name Role Phone Michelle Fine DO Primary Care Pro vider Joseph Aguayo MD Primary Care Provider Nelida Villanueva, Pcp Primary Care Provider Lenora anders Encounter Details Date Type Department Care Team Description 01/30/2016 Pt. Non Urgent Medic al Question Adult Medicine [address] [address] Leticia Cabrera NP Social History Tobacco Use Types Packs/Day Years Used Date Smoking Tobacco: Never Smokeless Tobacco: Never Alcohol Use Standard Drinks/Week Comments No 0 (1 standard drink = 0.6 oz pur e alcohol) Sex Assigned at Date Recorded Not on file documented as of this encounter Progress Notes * Blaire Garcia M.A. - 01/31/2016 9:41 AM ESTFrom: Mariely Rodriguez To: Leticia Cabrera NP Sent: 01/30/2016 8:30 PM EST Subject: Missed appointment Enzo Armendariz, I'm so sorry that I missed my followup appt yesterday. I got the confirmation call last week but mywork day got away from me and I forgot it. No excuses. I worked at [employer], I hate no shows so I'm REALLY sorry about this. If there's a possibility that you have an opening on February 07, I have the morning off and could come in for an appt. If not, please have someone schedule an appt and I will make sure to request the time off so that I can be there. My apologies, Mariely documented in this encounter Plan of Treatment Not on file documented as of this encounter Visit Diagnoses Not on filedocumented in this encounter Care Teams Special Needs Child Caregiver Relationship Specialty Start Date End Date Michelle Fine DO PCP - General Internal Medicine 06/12/15 04/28/19 Joseph Boyce MD PCP - General Internal Medicine 04/29/19 05/29/21 [facility], Pcp PCP - General Internal Medicine 05/30/21 documented as of this encounter
--- OUTSIDE RECORDS SUMMARY | 2024-06-24 08:20 | XMS_ITS | Encounter Summary ---
Author Organization [facility] Address [address] [place] [address] Care Team Providers Care Drawbridge Operator Name Role Phone Michelle Fine DO Primary Care Pro vider Joseph Aguayo MD Primary Care Provider Nelida Villanueva, Pcp Primary Care Provider Lenora e Encounter Details Date Type Department Care Team Description 01/14/2019 Orders Only Adult Medicine [address] [address] Michelle Fine DO Type 2 diabetes mellitus without complication, unspecified whether terminal gauger supervisor insulin use (HCC) (Primary Dx); Essential hypertension; [...] - 900 pg/mL 01/21/2019 1:53 PM EDT [facility] [employer] [facility] 01/21/2019 10:3 6 AM EDT 01/21/2019 10:37 AM EDT Michelle Collins DO LAB [facility] * (ABNORMAL) CBC (AUTO DIFF PLATELET) (01/21/2019 [...] 15 % 01/21/2019 1:28 PM EDT [facility] PLT COUNT 257 130 - 400 x10-3/uL 01/21/2019 1:28 PM EDT [facility] MEAN PLATELET VOLUME 10.3 7 - 11 [...] 6 AM EDT 01/21/2019 10:37 AM EDT [employer] Performing Organization Address City/[facility]/ZIP Co de Phone Number [facility] * 25 HYDROXY INCLUDES FRACTIONS IF PERFORMED (01/21/2019 10:36 AM EDT) VITAMIN D, 25-HYDROXY 30 30 - 80 ng/mL 01/21/2019 1:38 PM EDT [facility] 01/21/2019 10:3 6 AM EDT 01/21/2019 10:37 AM EDT [employer] Performing Organization Address City/[facility]/ZIP Co de Phone Number [facility] * LIPID PROFILE (01/21/2019 10:36 AM EDT) Cholesterol 173 0 - 200 mg/dL 01/21/2019 1:31 PM EDT [facility] TRIGLYCERIDES 126 0 - 150 mg/dL 01/21/2019 1:31 PM EDT [facility] HDL CHOLESTEROL 66 >40 mg/dL 9 1:31 [...] EDT [facility] Comment: If patient is -Hungarian, multiply result by 1.21 Chronic Kidney Disease: [...] Michelle Collins DO LAB Performing Organization Address City/[facility]/ZIP Co de Phone Number [facility] * HEMOGLOBIN A1C (01/21/2019 10:36 AM EDT) GLYCATED HEMOGLOBIN A1C 5.9 <6.5 % 01/21/2019 1:48 PM EDT [facility] ESTIMATED AVERAGE GLUCOSE 123 mg/dL 01/21/2019 1:48 PM EDT [facility] 01/21/2019 10:3 6 AM EDT 01/21/2019 10:37 AM EDT Michelle Collins DO LAB Performing Organization Address [facility]/ZIP Co de Phone Number [facility] * [...] Michelle Collins DO LAB Performing Organization Address City/[facility]/ZIP Co de Phone Number [facility] MEDISaharey documented in this encounter Visit Diagnoses Diagnosis Type 2 diabetes mellitus without complication, unspecified whether snf insulin use (HCC)- Primary Essential hypertension Unspecified essential hypertension Hypercholesterolemia Pure hypercholesterolemia B12 deficiency Other B-complex deficiencies H/O vitamin D deficiency Personal history of nutritional deficiency documented in this encounter Care Teams Drawbridge Operator Relationship Specialty Start Date End Date Michelle Fine DO PCP - General Internal Medicine 06/12/15 04/28/19 Joseph Boyce MD PCP - General Internal Medicine 04/29/19 05/29/21 [facility], Pcp PCP - General Internal Medicine 05/30/21 documented as of this encounter
--- OUTSIDE RECORDS SUMMARY | 2024-06-24 08:20 | XMS_ITS | Clinical Summary ---
Author Organization [facility] Address [address] [place] [address] Care Team Providers Care Bpo Specialist Name Role Phone Michelle Peralta Primary Care Pro vider Surgical History Surgery Date Site/Laterality Comments GASTRIC BYPASS 07/06/01 PROCEDURE: [place] GASTRIC RSTCV W/BYP W/SM INT RCNSTJ LIMIT ABSRPJ COLONOSCOPY 11/09/2010 PROCEDURE: [place] COLONOSCOPY FLX DX W/COLLJ SPEC WHEN PFRMD; COMMENT: normal TONSILLECTOMY PROCEDURE: HISTORICAL TONSILLECTOMY COLPOSCOPY PROCEDURE: [place] COLPOSCOPY ENTIRE VAGINA W/CERVIX IF PRESENT; COMMENT: abnormal pap OTHER SURGICAL HISTORY 07/24/2017 PROCEDURE: [place] ARTHRD ANT INTERBODY DECOMPRESS CERVICAL BELW C2 OTHER SURGICAL HISTORY 07/2017 PROCEDURE: [place] ARTHRD ANT INTERBODY MIN DSC CRV BELOW [...] Type 2 diabetes mellitus wit hout complication 11/22/2014 DX:Type 2 diabetes mellitus without complication (HCC) B12 deficiency DX:B12 deficienc y Cervical myelopathy (CMS/HCC) DX :Cervical myelopathy (HCC) Family History Medical History Relation Name Comments Other: Other Father age 26 ASHD Diabetes Mother valvular heart disease Relation Name Status Comments Aunt Alive Maternal - floyd nettles ca - dx in 70s. Father (Age 36) [place]/CAD, roach dden cardiac Maternal Grandmother (Age 69) [...] or Tdap) 02/03/2027 02/03/2017, 09/26/2006 RSV Immunization Adult Patients (1 - 1-dose 75+ series) 07/09/2035 Pneumococcal [...] Procedure Name Priority Date/Time Associated Diagnosis Comments [facility] SCREENING DIGITAL Routine 06/20/2020 9:00 AM EDT Encounter for screening mammogram for malignant neoplasm of breast from Last 3 Months or Most Recently Relevant to Health Maintenance Results * [facility] SCREENING DIGITAL (06/20/2020 9:00 AM EDT) Anatomical Region Laterality Modality Mammography 06/20/2020 7:01 AM EDT Narrative 06/20/2020 9:00 AM EDT [facility] Diagnostic Imaging Department [address] [place], [place] [id number] Patient: ??MARIELY KRUSE ?/Age/Sex: 1960 - 59 - F Unit#: ??[id number] ? Location/Status: ??SPDIMAM/REG CLI ? Mnemonic/Ordering Site: [...] MLO projection. Computer aided detection with the [employer] was employed. TISSUE DENSITY: b. There are [...] Routine screening mammogram BILATERAL in 1 year. 35289, 81122 3341F, 7025F Dictating Physician: ??DAVID SANDERSON MD Electronically Signed by: ??DAVID SANDERSON MD Dic Date/Time: ??06/20/20899 Sign date/Time: ??06/20/20899 Procedure Note David Sanderson MD - 03/12/2022 [facility] Diagnostic Imaging Department [address] [place] [address] Patient: MARIELY KRUSE /Age/Sex: 1960 - 59 - F Unit#: [id number] Location/Status: SPDIMAM/REG CLI Mnemonic/Ordering Site: [facility] Ordering Physician: JOSEPH DOBBINS MD [facility] Screening Digital - 06/20/20730 EXAM: [facility] Screening Digital EXAM DATE AND TIME: 06/20/2020 7:31 AM HISTORY: Screening. Maternal aunt had breast carcinoma in her 70's. COMPARISON: 05/10/19, 05/02/17, 07/06/15 TECHNIQUE: CC and MLO views of both breasts were obtained using fullfield digital mammography. Bilateral digital breast tomosynthesis was performedin the MLO projection. 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 TISSUE DENSITY: b. There are scattered [...] Routine screening mammogram BILATERAL in 1 year. 44245, 45808 3341F, 7025F Dictating Physician: DAVID SANDERSON MD Electronically Signed by: DAVID SANDERSON MD Dic Date/Time: 06/20/20 0900 Sign date/Time: 06/20/20 0900 us Joseph Dobbins MD IMG BI PROCEDURES Final Resul t from Last 3 Months or Most Recently Relevant to Health Maintenance Advance Directives Documents on File Type Date Recorded Patient Insulation Supervisor Expl anation Health Care Decision (hx) 07/24/2017 AD ALBRECHT DIRECTIVE Health Care Decision (hx) 07/24/2017 AD ALBRECHT DIRECTIVE Care Teams Bpo Specialist Relationship Specialty Start Date End Date Michelle Peralta DO PCP - General Hand Counter 06/02/17
--- OUTSIDE RECORDS SUMMARY | 2024-06-24 08:20 | XMS_ITS | Patient Health Record ---
Author Organization [facility], [facility] Address [address] [place] [phone] Support Name Relationship Address Phone MASHA KRUSE Guarantor Unknown Unavailable REASON FOR REFERRAL No Information PLAN OF TREATMENT No Information Insurance Providers Payer Name Payer Address Payer Phone Subscriber Number Group Number Insured Name Patient Relationship to Insured Coverage Start Date Coverage End Date [employer] [facility] [address] [address] [place] [address] [id number] MASHA KRUSE Self - patient is the insured
--- OUTSIDE RECORDS SUMMARY | 2024-06-24 08:20 | XMS_ITS | Encounter Summary ---
Author Organization [facility] Address [address] [place] [address] Care Team Providers Care Extract Puller Name Role Phone Konstantin Sinha MD Primary Care Provider Unavail able Michelle Fine DO Primary Care Pro vider Unavailable Joseph Boyce MD Primary Care Provider [facility], Pcp Primary Care Provider Lenora e Encounter Details Date Type Department Care Team Description 09/13/2011 Refill Adult Medicine [address] [address] Blaire Melendez PA-C Social History Tobacco Use [...] MG tablet [Blaire Melendez PA-C] Preferred pharmacy: [place] [address] [employer] Comment: 90 day supply please. If I'm [...] uncontrolled documented in this encounter Care Teams Extract Puller Relationship Specialty Start Date End Date Konstantin Sinha MD PCP - General 11/26/1994 06/11/15 Michelle Fine DO PCP - General Internal Medicine 06/12/15 04/28/19 Joseph Boyce MD PCP - General Internal Medicine 04/29/19 05/29/21 Pending Sale To [facility], Pcp PCP - General Internal Medicine 05/30/21 documented as of this encounter
--- OUTSIDE RECORDS SUMMARY | 2024-06-24 08:20 | XMS_ITS | Encounter Summary ---
Author Organization [facility] Address [address] [place] [address] Care Team Providers Care Assistant Professor Nurse Education Name Role Phone Michelle Fine DO Primary Care Pro vider Unavailable Joseph Boyce MD Primary Care Provider Nelida Villanueva, Pcp Primary Care Provider Lenora anders Encounter Details Date Type Department Care Team Description 11/16/2018 Orders Only Adult Medicine [address] [address] Michelle Fine DO Social History Tobacco Use [...] on filedocumented in this encounter Care Teams Assistant Professor Nurse Education Relationship Specialty Start Date End Date Michelle Fine DO PCP - General Internal Medicine 06/12/15 04/28/19 Joseph Boyce MD PCP - General Internal Medicine 04/29/19 05/29/21 [facility], Pcp PCP - General Internal Medicine 05/30/21 documented as of this encounter
--- OUTSIDE RECORDS SUMMARY | 2024-06-24 08:20 | XMS_ITS | Encounter Summary ---
Author Organization [facility] Address [address] [place] [address] Care Team Providers Care Fuse Spooler Name Role Phone Konstantin Sinha MD Primary Care Provider Unavail able Michelle Fine DO Primary Care Pro vider Unavailable Joseph Boyce MD Primary Care Provider [facility], Pcp Primary Care Provider Unavailabl e Reason for Visit * Reason Onset Date Comments Abnormal Pap 08/10/2013 triage Encounter Details Date Type Department Care Team Description 08/10/2013 Telephone OBGYN - [address] [address] Kemar Mcgregor MD Abnormal Pap (triage) Social History Tobacco Use Types Packs/Day Years Used Date Smoking Tobacco: Never Smokeless Tobacco: Never Alcohol Use Standard Drinks/Week Comments No 0 (1 standard drink = 0.6 oz pur e alcohol) Sex Assigned at Date Recorded Not on file documented as of this encounter Miscellaneous Notes * Telephone Encounter - Deanna Clay - 08/10/2013 3:15 PM EDT Pt was told that her records need to be transferred or brought to this office Pt states will do so * Telephone Encounter - Tiffany Valdez R.N. - 08/10/2013 3:11 PM EDT Yes, we need all records transferred before appt can be scheduled. * Telephone Encounter - Deanna Clay - 08/10/2013 3:09 PM EDT Pt states abnormal pap at a senior core java developer office outside of [facility] Pt states she did have a colpo at that office 3 wks ago She is not in agreement with the care plan that she is being given and wants to come here Would records need to come here first for evaluation before any appt made here? documented in this encounter Plan of Treatment Not on file documented as of this encounter Visit Diagnoses Not on filedocumented in this encounter Care Teams Fuse Spooler Relationship Specialty Start Date End Date Konstantin Sinha MD PCP - General 11/26/1994 06/11/15 Michelle Fine DO PCP - General Internal Medicine 06/12/15 04/28/19 Joseph Boyce MD PCP - General Internal Medicine 04/29/19 05/29/21 [facility], Pcp PCP - General Internal Medicine 05/30/21 documented as of this encounter
--- OUTSIDE RECORDS SUMMARY | 2024-06-24 08:20 | XMS_ITS | Encounter Summary ---
Author Organization [facility] Address [address] [place] [address] Care Team Providers Care Farm Crops Teacher Name Role Phone Michelle Fine DO Primary Care Pro dieterr Joseph Aguayo MD Primary Care Provider Nelida Villanueva, Pcp Primary Care Provider Lenora anders Encounter Details Date Type Department Care Team Description 10/17/2015 Refill Adult Medicine [address] [address] Leticia Cabrera NP Social History Tobacco Use Types Packs/Day Years Used Date Smoking Tobacco: Never Smokeless Tobacco: Never Alcohol Use Standard Drinks/Week Comments No 0 (1 standard drink = 0.6 oz pur e alcohol) Sex Assigned at Date Recorded Not on file documented as of this encounter Miscellaneous Notes * Telephone Encounter - Blaire Garcia M.A. - 10/17/2015 8:49 AM EDTFrom: Mariely Rodriguez To: Leticia Vaca NP Sent: 10/17/2015 2:02 AM EDT Subject: Medication Renewal Request Original authorizing provider: HIREN Castro would like a refill of the following medications: VICTOZA 18 MG/3ML Solution Pen-injector [Kala Vaca NP] [facility] [place] [facility] [address] Comment: 3month supply please documented in this encounter Plan of Treatment Not on file documented as of this encounter Visit Diagnoses Not on filedocumented in this encounter Care Teams Farm Crops Teacher Relationship Specialty Start Date End Date Michelle Fine DO PCP - General Internal Medicine 06/12/15 04/28/19 Joseph Boyce MD PCP - General Internal Medicine 04/29/19 05/29/21 [facility], Pcp PCP - General Internal Medicine 05/30/21 documented as of this encounter
--- OUTSIDE RECORDS SUMMARY | 2024-06-24 08:20 | XMS_ITS | Encounter Summary ---
Author Organization [facility] Address [address] [place] [address] Care Team Providers Care Business Process Lead Name Role Phone Michelle Fine DO Primary Care Pro vider Unavailable Joseph Boyce MD Primary Care Provider Nelida Villanueva, Pcp Primary Care Provider Lenora anders Encounter Details Date Type Department Care Team Description 08/04/2017 Avionics Safety Inspector Report Medical Records [address] [place] [address] Tatyana Bates PA-C [address] [place] [address] [address] [place] [address] Social History Tobacco Use Types Packs/Day Years [...] filedocumented in this encounter Care Teams Business Process Lead Relationship Specialty Start Date End Date Michelle Fine DO PCP - General Internal Medicine 06/12/15 04/28/19 Joseph Boyce MD PCP - General Internal Medicine 04/29/19 05/29/21 [facility], Pcp PCP - General Internal Medicine 05/30/21 documented as of this encounter
--- OUTSIDE RECORDS SUMMARY | 2024-06-24 08:20 | XMS_ITS | Encounter Summary ---
Author Organization [facility] Address [address] [place] [address] Care Team Providers Care Plastics Process Hand Name Role Phone [facility], Pcp Primary Care Provider Unavailabl e Encounter Details Date Type Department Care Team Description 05/30/2021 Telephone Adult Medicine [address] [address] Joseph Boyce MD Social History Tobacco Use Types Packs/Day [...] on filedocumented in this encounter Care Teams Plastics Process Hand Relationship Specialty Start Date End Date [facility], Pcp PCP - General Internal Medicine 05/30/21 documented as of this encounter
--- OUTSIDE RECORDS SUMMARY | 2024-06-24 08:20 | XMS_ITS | Encounter Summary ---
Author Organization [facility] Address [address] [place] [address] Care Team Providers Care Lead Pony Rider Name Role Phone Konstantin Sinha MD Primary Care Provider Unavail able Michelle Fine DO Primary Care Pro vider Unavailable Joseph Boyce MD Primary Care Provider Nelida roberts [facility], Pcp Primary Care Provider Unavailcharissa e Encounter Details Date Type Department Care Team Description 05/23/2011 Eye Managing Director Report Medical Records [address] [place] [address] Dora Olson Social History Tobacco Use Types Packs/Day Years [...] on filedocumented in this encounter Care Teams Lead Pony Rider Relationship Specialty Start Date End Date Konstantin Sinha MD PCP - General 11/26/1994 06/11/15 Michelle Fine DO PCP - General Internal Medicine 06/12/15 04/28/19 Joseph Boyce MD PCP - General Internal Medicine 04/29/19 05/29/21 [facility], Pcp PCP - General Internal Medicine 05/30/21 documented as of this encounter
--- OUTSIDE RECORDS SUMMARY | 2024-06-24 08:20 | XMS_ITS | Encounter Summary ---
Author Organization [facility] Address [address] [place] [address] Care Team Providers Care Fruit Inspector Name Role Phone Michelle Fine DO Primary Care Pro vider Joseph Aguayo MD Primary Care Provider Nelida Villanueva, Pcp Primary Care Provider Lenora anders Encounter Details Date Type Department Care Team Description 01/14/2019 Pt. Non Urgent Medic al Question Adult Medicine [address] [address] Michelle Fine DO Social History Tobacco Use Types Packs/Day Years Used Date Smoking Tobacco: Never Smokeless Tobacco: Never Alcohol Use Standard Drinks/Week Comments No 0 (1 standard drink = 0.6 oz pur e alcohol) Sex Assigned at Date Recorded Not on file documented as of this encounter Progress Notes * Michelle Collins DO - 01/14/2019 1:50 PM EDT Have ordered fasting labs documented in this encounter Miscellaneous Notes * Telephone Encounter - Adrianne Aranda M.A. - 01/14/2019 11:27 AM EDTFrom: Mariely Rodriguez To: Michelle Collins DO Sent: 01/14/2019 11:26 AM EDT Subject: Upcoming appt I have an appt scheduled for 01/22 and I'm wondering if I need bloodwork before that appt? documented in this encounter Plan of Treatment Not on file documented as of this encounter Visit Diagnoses Not on filedocumented in this encounter Care Teams Fruit Inspector Relationship Specialty Start Date End Date Michelle Fine DO PCP - General Internal Medicine 06/12/15 04/28/19 Joseph Boyce MD PCP - General Internal Medicine 04/29/19 05/29/21 [facility], Pcp PCP - General Internal Medicine 05/30/21 documented as of this encounter
--- OUTSIDE RECORDS SUMMARY | 2024-06-24 08:20 | XMS_ITS | Encounter Summary ---
Author Organization [facility] Address [address] [place] [address] Care Team Providers Care School Bus Operator Name Role Phone Michelle Fine DO Primary Care Pro vider Joseph Aguayo MD Primary Care Provider Nelida Villanueva, Pcp Primary Care Provider Lenora anders Encounter Details Date Type Department Care Team Description 03/19/2018 Refill Adult Medicine [address] [address] Michelle Fine DO Social History Tobacco Use [...] & [facility] [place] [address] AT Comment: I'm asking for a [...] all until I get sick again. Thanks [phone] documented in this encounter Plan of Treatment Not on file documented as of this encounter Visit Diagnoses Not on filedocumented in this encounter Care Teams School Bus Operator Relationship Specialty Start Date End Date Michelle Fine DO PCP - General Internal Medicine 06/12/15 04/28/19 Joseph Boyce MD PCP - General Internal Medicine 04/29/19 05/29/21 [facility], Pcp PCP - General Internal Medicine 05/30/21 documented as of this encounter
--- OUTSIDE RECORDS SUMMARY | 2024-06-24 08:20 | XMS_ITS | Encounter Summary ---
Author Organization [facility] Address [address] [place] [address] Care Team Providers Care Senior Research Executive Name Role Phone Michelle Fine DO Primary Care Pro vider Joseph Aguayo MD Primary Care Provider Nelida Villanueva, Pcp Primary Care Provider Lenora anders Encounter Details Date Type Department Care Team Description 02/27/2018 Refill [facility] Thony [address] [place] [address] Md Thony Social History Tobacco Use Types Packs/Day Years Used Date Smoking Tobacco: Never Smokeless Tobacco: Never Alcohol Use Standard Drinks/Week Comments No 0 (1 standard drink = 0.6 oz pur e alcohol) Sex Assigned at Date Recorded Not on file documented as of this encounter Miscellaneous Notes * Telephone Encounter - Emilia Gregory M.A. - 03/04/2018 7:27 AM EST Last office visit 01/22/18 Lab Results Component Value Date HGBA1C 5.8 01/21/2018 MALBUR 0.8 10/13/2017 MALBCR 1.2 10/13/2017 CHOL 136 10/13/2017 LDL 53 10/13/2017 HDL 52 10/13/2017 TRIG 158 10/13/2017 GLU 105 10/13/2017 CREAT 0.8 10/13/2017 Metformin already filled on 03/02/18 for 90 days with 1 refill * Telephone Encounter - Ed Floyd - 03/02/2018 8:59 AM ESTFrom: Mariely Rodriguez Sent: 02/27/2018 6:15 PM EST Subject: Medication Renewal Request Mariely Michael would like a refill of the following medications: Medication renewals requested in this message routed to other providers: metformin (GLUCOPHAGE-XR) 500 MG 24 hr tablet [Michelle Peralta DO] Other - see comments for explanation Preferred pharmacy: [facility] [place] [place] - [address] Comment: Please refill Victoza 0.6mg daily. (Jessie decreased the dose at my last office visit but I didn't need a refill at that time) 3 month supply to [facility] please. documented in this encounter Plan of Treatment Not on file documented as of this encounter Visit Diagnoses Not on filedocumented in this encounter Care Teams Senior Research Executive Relationship Specialty Start Date End Date Michelle Fine DO PCP - General Internal Medicine 06/12/15 04/28/19 Joseph Boyce MD PCP - General Internal Medicine 04/29/19 05/29/21 [facility], Pcp PCP - General Internal Medicine 05/30/21 documented as of this encounter
--- OUTSIDE RECORDS SUMMARY | 2024-06-24 08:20 | XMS_ITS | Encounter Summary ---
Author Organization [facility] Address [address] [place] [address] Care Team Providers Care Diesel Powerplant Mechanic Helper Name Role Phone Konstantin Sinha MD Primary Care Provider Unavail able Michelle Fine DO Primary Care Pro vider Unavailable Joseph Boyce MD Primary Care Provider Nelida roberts [facility], Pcp Primary Care Provider Lenora e Encounter Details Date Type Department Care Team Description 10/11/2013 Orders Only Adult Medicine A [address] [address] Konstantin Sinha MD Social History Tobacco Use Types Packs/Day [...] on filedocumented in this encounter Care Teams Diesel Powerplant Mechanic Helper Relationship Specialty Start Date End Date Konstantin Sinha MD PCP - General 11/26/1994 06/11/15 Michelle Fine DO PCP - General Internal Medicine 06/12/15 04/28/19 Joseph Boyce MD PCP - General Internal Medicine 04/29/19 05/29/21 [facility], Pcp PCP - General Internal Medicine 05/30/21 documented as of this encounter
--- OUTSIDE RECORDS SUMMARY | 2024-06-24 08:20 | XMS_ITS | Encounter Summary ---
Author Organization [facility] Address [address] [place] [address] Care Team Providers Care Senior Drupal Developer Name Role Phone Michelle Fine DO Primary Care Pro vider Joseph Aguayo MD Primary Care Provider Nelida roberts [facility], Pcp Primary Care Provider Unavailabl e Reason for Referral * Non DUNIA (Priority) - Unable to reach/declined Specialty Diagnoses / Procedures Referred By Gaby alba Referred To Contact Podiatry Procedures REFERRAL TO PODIATRY (IN NETWORK) Michelle Fine DO [address] [place] [address] Pod/[address] [address] Referral ID Status Reason Start Date Expiration Date V isits Requested Visits Authorized [id number] CLINED Unable to reach/decli melody 10/14/2018 10/14/2019 1 1 Encounter Details Date Type Department Care Team Description 10/14/2018 Orders Only Adult Medicine [address] [address] Michelle Fine DO Social History Tobacco Use [...] filedocumented in this encounter Care Teams Senior Drupal Developer Relationship Specialty Start Date End Date Michelle Fine DO PCP - General Internal Medicine 06/12/15 04/28/19 Joseph Boyce MD PCP - General Internal Medicine 04/29/19 05/29/21 [facility], Pcp PCP - General Internal Medicine 05/30/21 documented as of this encounter
--- OUTSIDE RECORDS SUMMARY | 2024-06-24 08:20 | XMS_ITS | Encounter Summary ---
Author Organization [facility] Address [address] [place] [address] Care Team Providers Care Lead Software Test Engineer Name Role Phone Michelle Fine DO Primary Care Pro vider Unavailable Joseph Boyce MD Primary Care Provider Nelida Villanueva, Pcp Primary Care Provider Lenora anders Encounter Details Date Type Department Care Team Description 10/03/2017 Release of Information Medical Records [address] [place] [id number] Abstract, Provider Social History Tobacco Use Types [...] filedocumented in this encounter Care Teams Lead Software Test Engineer Relationship Specialty Start Date End Date Michelle Fine DO PCP - General Internal Medicine 06/12/15 04/28/19 Joseph Boyce MD PCP - General Internal Medicine 04/29/19 05/29/21 [facility], Pcp PCP - General Internal Medicine 05/30/21 documented as of this encounter
--- OUTSIDE RECORDS SUMMARY | 2024-06-24 08:20 | XMS_ITS | Encounter Summary ---
Author Organization [facility] Address [address] [place] [address] Care Team Providers Care Name Plate Stamping Machine Operator Name Role Phone Michelle Fine DO Primary Care Pro vider Unavailable Joseph Boyce MD Primary Care Provider Nelida Villanueva, Pcp Primary Care Provider Lenora anders Encounter Details Date Type Department Care Team Description 04/25/2017 Motion Picture Camera Operator Report Medical Records [address] [place] [id number] Abstract, Provider Social History Tobacco Use Types [...] on filedocumented in this encounter Care Teams Name Plate Stamping Machine Operator Relationship Specialty Start Date End Date Michelle Fine DO PCP - General Internal Medicine 06/12/15 04/28/19 Joseph Boyce MD PCP - General Internal Medicine 04/29/19 05/29/21 [facility], Pcp PCP - General Internal Medicine 05/30/21 documented as of this encounter
--- OUTSIDE RECORDS SUMMARY | 2024-06-24 08:20 | XMS_ITS | Encounter Summary ---
Author Organization [facility] Address [address] [place] [address] Care Team Providers Care Warehouse Worker Name Role Phone Konstantin Sinha MD Primary Care Provider Unavail able Michelle Fine DO Primary Care Pro vider Unavailable Joseph Boyce MD Primary Care Provider Nelida roberts [facility], Pcp Primary Care Provider Unavailcharissa e Encounter Details Date Type Department Care Team Description 08/09/2013 Recruitment Director Report Medical Records [address] [place] [address] Group, [facility] Gynecology [facility] Social History Tobacco Use Types Packs/Day Years [...] on filedocumented in this encounter Care Teams Warehouse Worker Relationship Specialty Start Date End Date Konstantin Sinha MD PCP - General 11/26/1994 06/11/15 Michelle Fine DO PCP - General Internal Medicine 06/12/15 04/28/19 Joseph Boyce MD PCP - General Internal Medicine 04/29/19 05/29/21 [facility] PCP - General Internal Medicine 05/30/21 documented as of this encounter
--- OUTSIDE RECORDS SUMMARY | 2024-06-24 08:20 | XMS_ITS | Encounter Summary ---
Author Organization [facility] Address [address] [place] [address] Care Team Providers Care Regulator Mechanic Name Role Phone Michelle Fine DO Primary Care Pro vider Unavailable Joseph Boyce MD Primary Care Provider Nelida Villanueva, Pcp Primary Care Provider Lenora anders Encounter Details Date Type Department Care Team Description 04/29/2018 Orders Only Adult Medicine [address] [address] Michelle Fine DO Social History Tobacco Use [...] on filedocumented in this encounter Care Teams Regulator Mechanic Relationship Specialty Start Date End Date Michelle Fine DO PCP - General Internal Medicine 06/12/15 04/28/19 Joseph Boyce MD PCP - General Internal Medicine 04/29/19 05/29/21 [facility], Pcp PCP - General Internal Medicine 05/30/21 documented as of this encounter
--- OUTSIDE RECORDS SUMMARY | 2024-06-24 08:20 | XMS_ITS | Encounter Summary ---
Author Organization [facility] Address [address] [place] [address] Care Team Providers Care Otorhinolaryngologist Name Role Phone Michelle Fine DO Primary Care Pro vider Joseph Aguayo MD Primary Care Provider Nelida Villanueva, Pcp Primary Care Provider Lenora e Reason for Referral * Non DUNIA (Routine) - Authorized/Booked Specialty Diagnoses / Procedures Referred By Gaby alba Referred To Contact Endocrinology Procedures REFERRAL TO ENDOCRINOLOGY Michelle Fine DO [address] [place] [address] Leticia Cabrera NP [address] [place] [address] Referral ID Status Reason Start Date Expiration Date V isits Requested Visits Authorized [id number] Authorized/B ooked 07/23/2015 07/22/2016 1 1 Encounter Details Date Type Department Care Team Description 07/23/2015 Orders Only Adult Medicine [address] [address] Michelle Fine DO Social History Tobacco Use [...] on filedocumented in this encounter Care Teams Otorhinolaryngologist Relationship Specialty Start Date End Date Michelle Fine DO PCP - General Internal Medicine 06/12/15 04/28/19 Joseph Boyce MD PCP - General Internal Medicine 04/29/19 05/29/21 [facility], Pcp PCP - General Internal Medicine 05/30/21 documented as of this encounter
--- OUTSIDE RECORDS SUMMARY | 2024-06-24 08:20 | XMS_ITS | Encounter Summary ---
Author Organization [facility] Address [address] [place] [address] Care Team Providers Care Airport Ramp Supervisor Name Role Phone Joseph Boyce MD Primary Care Provider Nelida roberts [facility], Pcp [facility] Reason for Visit * Reason Onset Date Comments Nazia 04/12/2020 BC/BS DM and hyp ertension follow up Encounter Details Date Type Department Care Team Description 04/12/2020 Telephone Adult Medicine [address] [address] Joseph Boyce MD Hedis (BC/BS DM and [...] 2 diabetes mellitus without complication, unspecified whether keno terminal operator insulin use (HCC)- Primary documented in this encounter Care Teams Airport Ramp Supervisor Relationship Specialty Start Date End Date Joseph Boyce MD PCP - General Internal Medicine 04/29/19 05/29/21 [facility] PCP - General Internal Medicine 05/30/21 documented as of this encounter
--- OUTSIDE RECORDS SUMMARY | 2024-06-24 08:20 | XMS_ITS | Encounter Summary ---
Author Organization [facility] Address [address] [place] [address] Care Team Providers Care Finance Business Manager Name Role Phone Michelle Fine DO Primary Care Pro vider Joseph Aguayo MD Primary Care Provider Nelida Villanueva, Pcp Primary Care Provider Lenora e Reason for Visit * Reason Onset Date Comments Orders Call 03/29/2019 Encounter Details Date Type Department Care Team Description 03/29/2019 Pt. Non Urgent Medic al Question Adult Medicine [address] [address] Michelle Fine DO Social History Tobacco Use Types Packs/Day Years Used Date Smoking Tobacco: Never Smokeless Tobacco: Never Alcohol Use Standard Drinks/Week Comments No 0 (1 standard drink = 0.6 oz pur e alcohol) Sex Assigned at Date Recorded Not on file documented as of this encounter Miscellaneous Notes * Telephone Encounter - Adrianne Aranda M.A. - 03/30/2019 7:17 AM ESTFrom: Mariely Rodriguez To: Michelle Collins DO Sent: 03/29/2019 [...] on filedocumented in this encounter Care Teams Finance Business Manager Relationship Specialty Start Date End Date Michelle Fine DO PCP - General Internal Medicine 06/12/15 04/28/19 Joseph Boyce MD PCP - General Internal Medicine 04/29/19 05/29/21 [facility], Pcp PCP - General Internal Medicine 05/30/21 documented as of this encounter
--- OUTSIDE RECORDS SUMMARY | 2024-06-24 08:20 | XMS_ITS | Encounter Summary ---
Author Organization [facility] Address [address] [place] [address] Care Team Providers Care Compensation Supervisor Name Role Phone Konstantin Sinha MD Primary Care Provider Unavail able Michelle Fine DO Primary Care Pro vider Unavailable Joseph Boyce MD Primary Care Provider Nelida Villanueva, Pcp Primary Care Provider Unavailcharissa e Encounter Details Date Type Department Care Team Description 09/07/2014 Electronic Repair Troubleshooter Report Medical Records [address] [place] [id number] [place] [address] Social History Tobacco Use Types Packs/Day Years [...] on filedocumented in this encounter Care Teams Compensation Supervisor Relationship Specialty Start Date End Date Konstantin Sinha MD PCP - General 11/26/1994 06/11/15 Michelle Fine DO PCP - General Internal Medicine 06/12/15 04/28/19 Joseph Boyce MD PCP - General Internal Medicine 04/29/19 05/29/21 [facility] PCP - General Internal Medicine 05/30/21 documented as of this encounter
--- OUTSIDE RECORDS SUMMARY | 2024-06-24 08:20 | XMS_ITS | Encounter Summary ---
Author Organization [facility] Address [address] [place] [address] Care Team Providers Care Energy Project Engineer Name Role Phone Konstantin Sinha MD Primary Care Provider Unavail able Michelle Fine DO Primary Care Pro vider Unavailable Joseph Boyce MD Primary Care Provider Nelida roberts [facility], Pcp Primary Care Provider Lenora anders Encounter Details Date Type Department Care Team Description 11/16/2012 Pt. Referral Request [facility] MyChart [address] [place] [address] Md Emre Social History Tobacco Use Types [...] on filedocumented in this encounter Care Teams Energy Project Engineer Relationship Specialty Start Date End Date Konstantin Sinha MD PCP - General 11/26/1994 06/11/15 Michelle Fine DO PCP - General Internal Medicine 06/12/15 04/28/19 Joseph Boyce MD PCP - General Internal Medicine 04/29/19 05/29/21 [facility], Pcp PCP - General Internal Medicine 05/30/21 documented as of this encounter
--- OUTSIDE RECORDS SUMMARY | 2024-06-24 08:20 | XMS_ITS | Encounter Summary ---
Author Organization [facility] Address [address] [place] [address] Care Team Providers Care Heading Pinner Name Role Phone Michelle Fine DO Primary Care Pro vider Joseph Aguayo MD Primary Care Provider Nelida Villanueva, Pcp Primary Care Provider Lenora anders Encounter Details Date Type Department Care Team Description 04/02/2019 Refill Adult Medicine [address] [address] Michelle Fine DO Social History Tobacco Use Types Packs/Day Years Used Date Smoking Tobacco: Never Smokeless Tobacco: Never Alcohol Use Standard Drinks/Week Comments No 0 (1 standard drink = 0.6 oz pur e alcohol) Sex Assigned at Date Recorded Not on file documented as of this encounter Miscellaneous Notes * Telephone Encounter - Emilia Gregory M.A. - 04/02/2019 6:48 AM EST Last office visit 01/22/19 Lab Results Component Value Date HGBA1C 5.9 01/21/2019 MALBUR 11.6 01/21/2019 MALBCR 8.4 01/21/2019 CHOL 173 01/21/2019 LDL 82 01/21/2019 HDL 66 01/21/2019 TRIG 126 01/21/2019 GLU 61 01/21/2019 CREAT 0.82 01/21/2019 documented in this encounter Plan of Treatment Not on file documented as of this encounter Visit Diagnoses Not on filedocumented in this encounter Care Teams Heading Pinner Relationship Specialty Start Date End Date Michelle Fine DO PCP - General Internal Medicine 06/12/15 04/28/19 Joseph Boyce MD PCP - General Internal Medicine 04/29/19 05/29/21 [facility], Pcp PCP - General Internal Medicine 05/30/21 documented as of this encounter
--- OUTSIDE RECORDS SUMMARY | 2024-06-24 08:20 | XMS_ITS | Encounter Summary ---
Author Organization [facility] Address [address] [place] [address] Care Team Providers Care Airplane Gas Tank Liner Assembler Name Role Phone Michelle Fine DO Primary Care Pro vider Joseph Aguayo MD Primary Care Provider Nelida roberts [facility], Pcp Primary Care Provider [facility]ailformerly [facility] e Reason for Visit * Reason Onset Date Comments Corner Brace Block Machine Operator Feedback 10/27/2017 orthopedics Encounter Details Date Type Department Care Team Description 10/27/2017 Telephone Adult Medicine [address] [address] Michelle Fine DO Corner Brace Block Machine Operator Feedback (orthopedics) Social History Tobacco Use Types [...] on filedocumented in this encounter Care Teams Airplane Gas Tank Liner Assembler Relationship Specialty Start Date End Date Michelle Fine DO PCP - General Internal Medicine 06/12/15 04/28/19 Joseph Boyce MD PCP - General Internal Medicine 04/29/19 05/29/21 [facility], Pcp PCP - General Internal Medicine 05/30/21 documented as of this encounter
--- OUTSIDE RECORDS SUMMARY | 2024-06-24 08:20 | XMS_ITS | Encounter Summary ---
Author Organization [facility] Address [address] [place] [address] Care Team Providers Care Child Adolescent Psychiatrist Name Role Phone Joseph Boyce MD Primary Care Provider Nelida roberts [facility], Pcp Primary Care Provider Lenora e Reason for Visit * Reason Onset Date Comments Mychart Rx Refill 06/20/2019 Encounter Details Date Type Department Care Team Description 06/20/2019 Pt. Non Urgent Medic al Question Adult Medicine [address] [address] Joseph Boyce MD Social History Tobacco Use Types Packs/Day Years Used Date Smoking Tobacco: Never Smokeless Tobacco: Never Alcohol Use Standard Drinks/Week Comments No 0 (1 standard drink = 0.6 oz pur e alcohol) Sex Assigned at Date Recorded Not on file documented as of this encounter Miscellaneous Notes * Telephone Encounter - Adrianne Aranda M.A. - 06/21/2019 10:36 AM EDTFrom: Mariely Rodriguez To: Joseph Boyce MD Sent: 06/20/2019 9:25 AM EDT Subject: Flovent inhaler In the past, I have needed to use Flovent inhaler whenever I get a respiratory illness. Then my insurance coverage changed and I had Asmanex prescribed. Now, with BCBS, it's back to Flovent that is covered. Because I'm at high risk for exposure, I was checking my med supplies, in case I get sick. My Asmanex inhaler is . Would you please send a script for Flovent inhaler to [facility]? I don't need mail in because I use it so infrequently (usually for 2 weeks only when sick and haven't had resp illness in about 2 years) that 90 day supply is not needed. Thank you Call me with any questions [phone] Mariely documented in this encounter Plan of Treatment Not on file documented as of this encounter Visit Diagnoses Not on filedocumented in this encounter Care Teams Child Adolescent Psychiatrist Relationship Specialty Start Date End Date Joseph Boyce MD PCP - General Internal Medicine 04/29/19 05/29/21 [facility], Pcp PCP - General Internal Medicine 05/30/21 documented as of this encounter
--- OUTSIDE RECORDS SUMMARY | 2024-06-24 08:20 | XMS_ITS | Encounter Summary ---
Author Organization [facility] Address [address] [place] [address] Care Team Providers Care Book Critic Name Role Phone Konstantin Sinha MD Primary Care Provider Unavail able Michelle Fine DO Primary Care Pro vider Unavailable Joseph Boyce MD Primary Care Provider [facility], Pcp Primary Care Provider Unavailabl e Reason for Visit * Reason Onset Date Comments radiology 04/07/2012 Encounter Details Date Type Department Care Team Description 04/07/2012 Telephone Adult Medicine [address] [address] Konstantin Sinha MD radiology Social History Tobacco [...] classified documented in this encounter Care Teams Book Critic Relationship Specialty Start Date End Date Konstantin Sinha MD PCP - General 11/26/1994 06/11/15 Michelle Fine DO PCP - General Internal Medicine 06/12/15 04/28/19 Joseph Boyce MD PCP - General Internal Medicine 04/29/19 05/29/21 [facility], Pcp PCP - General Internal Medicine 05/30/21 documented as of this encounter
--- OUTSIDE RECORDS SUMMARY | 2024-06-24 08:20 | XMS_ITS | Encounter Summary ---
Author Organization [facility] Address [address] [place] [address] Care Team Providers Care Clinical Athletic Instructor Name Role Phone Konstantin Sinha MD Primary Care Provider Unavail able Michelle Fine DO Primary Care Pro vider Unavailable Joseph Boyce MD Primary Care Provider Nelida roberts [facility], Pcp Primary Care Provider Unavailcharissa e Encounter Details Date Type Department Care Team Description 12/07/2010 Release of Information Orthopedic Surgery - [address] [place] [address] Abstract, Provider Social History Tobacco Use Types [...] filedocumented in this encounter Care Teams Clinical Athletic Instructor Relationship Specialty Start Date End Date Konstantin Sinha MD PCP - General 11/26/1994 06/11/15 Michelle Fine DO PCP - General Internal Medicine 06/12/15 04/28/19 Joseph Boyce MD PCP - General Internal Medicine 04/29/19 05/29/21 [facility], Pcp PCP - General Internal Medicine 05/30/21 documented as of this encounter
--- OUTSIDE RECORDS SUMMARY | 2024-06-24 08:20 | XMS_ITS | Encounter Summary ---
Author Organization [facility] Address [address] [place] [address] Care Team Providers Care Methodologist Name Role Phone Konstantin Sinha MD Primary Care Provider Unavail able Michelle Fine DO Primary Care Pro vider Unavailable Joseph Byoce MD Primary Care Provider Nelida Villanueva, Pcp Primary Care Provider Unavailcharissa e Encounter Details Date Type Department Care Team Description 02/09/2010 Telephone Orthopedic Surgery - [address] [place] [address] Jn Garcia MD Social History Tobacco Use Types Packs/Day Years Used Date Smoking Tobacco: Never Alcohol Use Standard Drinks/Week Comments No 0 (1 standard drink = 0.6 oz pur e alcohol) Sex Assigned at Date Recorded Not on file documented as of this encounter Plan of Treatment Not on file documented as of this encounter Visit Diagnoses Not on filedocumented in this encounter Care Teams Methodologist Relationship Specialty Start Date End Date Konstantin Sinha MD PCP - General 11/26/1994 06/11/15 Michelle Fine DO PCP - General Internal Medicine 06/12/15 04/28/19 Joseph Boyce MD PCP - General Internal Medicine 04/29/19 05/29/21 [facility], Pcp PCP - General Internal Medicine 05/30/21 documented as of this encounter
--- OUTSIDE RECORDS SUMMARY | 2024-06-24 08:20 | XMS_ITS | Encounter Summary ---
Author Organization [facility] Address [address] [place] [address] Care Team Providers Care Sales Order Coordinator Name Role Phone Konstantin Sinha MD Primary Care Provider Unavail able Michelle Fine DO Primary Care Pro vider Unavailable Joseph Boyce MD [facility] Primary Care Provider Unavailabl e Reason for Visit * Reason Onset Date Comments other 08/31/2010 Encounter Details Date Type Department Care Team Description 08/31/2010 Pt. Non Urgent Medical Question Adult Medicine [address] [address] Blaire Melendez PA-C Social History Tobacco Use [...] on filedocumented in this encounter Care Teams Sales Order Coordinator Relationship Specialty Start Date End Date Konstantin Sinha MD PCP - General 11/26/1994 06/11/15 Michelle Fine DO PCP - General Internal Medicine 06/12/15 04/28/19 Joseph Boyce MD PCP - General Internal Medicine 04/29/19 05/29/21 [facility], Pcp PCP - General Internal Medicine 05/30/21 documented as of this encounter
--- OUTSIDE RECORDS SUMMARY | 2024-06-24 08:20 | XMS_ITS | Encounter Summary ---
Author Organization [facility] Address [address] [place] [address] Care Team Providers Care District Leader Name Role Phone Michelle Fine DO Primary Care Pro vider Joseph Aguayo MD Primary Care Provider Nelida Villanueva, Pcp Primary Care Provider Lenora anders Encounter Details Date Type Department Care Team Description 08/31/2018 Refill Adult Medicine [address] [address] Jessie Torres PA-C Social History Tobacco Use [...] hypercholesterolemia documented in this encounter Care Teams District Leader Relationship Specialty Start Date End Date Michelle Fine DO PCP - General Internal Medicine 06/12/15 04/28/19 Joseph Boyce MD PCP - General Internal Medicine 04/29/19 05/29/21 [facility], Pcp PCP - General Internal Medicine 05/30/21 documented as of this encounter
== END 2024-06-24 08:16 | disposition home or self-care (01) ==
LOC: HO.HMGCX 08:15
PROVIDERS: PCP Internal Medicine; Visit Provider Internal Medicine
DX: E04.1 Nontoxic single thyroid nodule (principal)
CPT/HCPCS: 76536

== ENCOUNTER → 2024-06-24 08:16 | Outpatient (BNV) | payer OTHER, SELFPAY | PROVIDERS: PCP Internal Medicine; Visit Provider Radiology Diagnostic Radiology | DX: E04.1 Nontoxic single thyroid nodule (principal) | CPT/HCPCS: 76536 ==

== ENCOUNTER 2024-08-28 07:48 | Outpatient (REF) | payer OTHER, SELFPAY ==
--- OUTSIDE RECORDS SUMMARY | 2024-08-28 07:50 | XMS_ITS | Patient Health Record ---
Author Organization [facility] Address [address] [place] [address] Care Team Providers Care Structural Metal Fabricator Apprentice Name Role Phone Michelle Fine Primary Care Provid er Unavailable Ning Ordonez Unavailable [phone] Reason For Referral No Information Medications Medication SIG (Take, Route, Frequency, Duration) Notes Start Date End Date Status Lisinopril qd Active metFORMIN HCl bid Active Simvastatin 40 mg qd Active Loratadine qd Active Calcium qd Active Prevacid qd Active Vitamin B 12 500 MCG 1 tablet Orally Onc e a day for 30 day(s) qd 02/05/2019 Active Aspirin 81 81 MG 1 tablet Orally Once a day for 30 day(s) qd 02/05/2019 Active Vitamin D3 25 MCG (1000 UT) 1 tablet Orally Once a day for 30 day(s) qd 02/05/2019 Active Immunizations Vaccine Route Administration Date Status Comme nts Influenza Unknown 12/07/2018 Administered Social History Tobacco Use: Social History Observation Description Date Details (start date - stop date) Never Smoker NA - NA Tobacco Use/Smoking Question Answer Notes Are you a: nonsmoker Alcohol Screen Question Answer Notes Did you have a drink containing alcohol in the p ast year? No Points 0 Interpretation Negative Tobacco use other than smoking: Question Answer Notes Are you an other tobacco user? No Plan Of Treatment Pending Test Test Name Order Date X ray : Foot, left 3V 02/09/2019 Insurance Providers Payer Name Payer Address Payer Phone Subscriber Number Group Number Insured Name Patient Relationship to Insured Coverage Start Date Coverage End Date [facility] [address] [place] [address] [phone] [id number] Mariely Rodriguez Self - patient is the insured Medical (General) History Medical History History ICD Code Diabetes mellitus High blood pressure Reflux ( GERD) Chicken pox Surgical History Surgery Date(Month/Year) gastric bypass 2001 cervical fusion 2017 tonsillectomy 1965
[2024-08-28 11:10] LABS: MANUAL DIFF FLAG NO
[2024-08-28 11:20] LABS: Basophils Absolute Auto 0.1 X10*3/uL (0.0-0.2); Basophils Percent Auto 1.2 % (0-2); Eosinophils Absolute Auto 0.1 X10*3/uL (0.0-0.4); Hematocrit 41.1 % (37.0-47.0); Hemoglobin 12.9 g/dl (12.0-16.0); Imm Gran Abs Auto 0.01 X10*3/uL (0.00-0.03); Imm Gran Pct Auto 0.2 % (0.0-0.4); Lymphocytes Absolute Auto 1.2 X10*3/uL (1.2-4.9); Mean Corpuscular HGB Conc 31.4 g/dl (31.0-35.0); Mean Corpuscular Hemoglobin 26.2 pg (27.0-33.0); Mean Corpuscular Volume 83.4 fL (80.0-98.0); Mean Platelet Volume 10.2 fL (9.4-12.3); Monocytes Absolute Auto 0.4 X10*3/uL (0.1-1.2); Neutrophils Absolute Auto 3.3 x10*3/uL (2.0-8.3); Neutrophils Percent Auto 65.6 % (45-73); Platelet Count 262 X10*3/uL (160-400); Red Blood Count 4.93 X10*6/uL (4.20-5.50); Red Cell Distribution Width 14.2 % (11.0-16.0)
[2024-08-28 11:30] LABS: Estimated Average Glucose 111 mg/dL; Hemoglobin A1c % 5.5 % (<6.0)
[2024-08-28 11:39] LABS: Alanine Aminotransferase 15 U/L (0-31); Alkaline Phosphatase 44 U/L (39-117); Anion Gap 9 (12-20); Aspartate Amino Transferase 24 U/L (5-31); Bilirubin Total 0.6 mg/dL (0.0-1.0); Blood Urea Nitrogen 15 mg/dL (9-16); Calcium 9.3 mg/dL (8.4-10.2); Carbon Dioxide 30 mmol/L (22-29); Chloride 102 mmol/L (96-108); Cholesterol 148 mg/dL (<200); Estimated Glomerular Filt Rate 59; Glucose Fasting 88 mg/dL (60-99); HDL Cholesterol 57 mg/dL (>40); LDL Cholesterol Calculated 77 mg/dL (<100); Potassium 4.2 mmol/L (3.3-5.1); Sodium 137 mmol/L (135-145); Total Protein 6.4 g/dL (6.5-8.0); Triglycerides 74 mg/dL (<150)
[2024-08-28 11:40] LABS: Creatinine Urine 45.26 mg/dL; Microalbum/Creatinine Ratio Ur 33.1 ug/mg cr (<30)
[2024-08-28 11:59] LABS: Folate 13.4 ng/mL (> or = 4.0); Vitamin B12 684 pg/mL (200-900)
[2024-08-28 12:02] LABS: Vitamin D 25-OH Total 61.5 ng/mL (>30)
== END 2024-08-28 07:49 | disposition home or self-care (01) ==
LOC: HO.HMGCLDS 07:48
PROVIDERS: PCP Internal Medicine; Visit Provider Internal Medicine
DX: E53.8 Deficiency of other specified B group vitamins (principal); E55.9 Vitamin D deficiency, unspecified; E78.5 Hyperlipidemia, unspecified; E11.9 Type 2 diabetes mellitus without complications; I10 Essential (primary) hypertension
CPT/HCPCS: 36415; 80053; 80061; 82043; 82306; 82570; 82607; 82746; 83036; 83735; 85025

== ENCOUNTER 2024-09-08 10:09 | Outpatient (AMB) | payer OTHER, SELFPAY ==
[2024-09-08 10:12] VITALS: BP 116/74; PULSE 68; RESP 18; TEMP 36.4; O2SAT 98; BMI 30.1
--- NOTE | 2024-09-08 10:12 | MHC.PC.OV ---
Vital Signs 09/08/24 10:12 Height 5 ft 3 in Weight 170 lb BMI 30.1 BP 116/74 Blood Pressure Location Lt brachial Position Sitting Respiration 18 Pulse 68 Pulse Source Pulse Oximeter Temp 97.5 F Temp Source Oral Pulse Oximetry (%) 98 Oxygen Delivery Method Room Air Intake Visit Reasons: Annual PE Intake Note: Pt is here today for PE. Allergies No Known Allergies Allergy (Verified 09/08/24 10:12) Medication List - Last Reconciled 09/08/24 by Soni Marie MD albuterol sulfate 90 mcg/actuation (Ventolin HFA) 1 inh inhalation QID PRN atorvastatin 40 mg PO DAILY blood sugar diagnostic (Contour Next Test Strips) test blood sugar twice per day blood-glucose sensor (AdventureDrop G7 Sensor device) USE DIRECTED TO MONITOR BLOOD SUGARS, change sensor every 10 days cholecalciferol (vitamin D3) 25 mcg PO DAILY docusate sodium 100 mg PO BID empagliflozin (Jardiance) 10 mg PO DAILY [fish oil PO .QD] fluticasone furoate 100 mcg/actuation (Arnuity Ellipta) 1 inh inhalation DAILY gabapentin 100 mg PO BEDTIME lisinopril 40 mg PO DAILY metformin 1,000 mg PO BID Mounjaro (tirzepatide) 2.5 mg (0.5 mL) subcut QWEEK NS pantoprazole 20 mg PO DAILY triamcinolone acetonide 0.025% 1 appl topical DAILY Tobacco use date assessed: 09/08/24 Fall risk assessment: No Falls in past year Last assessed Fall Risk: 09/08/24 Dental Screening Dental Screen Date: 09/08/24 Did you have a dental visit in the last 12 months?: Yes Did you have a dental problem in the last 6 months where you did not have access to dental care?: No Was dental information given to patient?: Patient has dentist HPI Annual PE HPI Details Patient presents for physical. She complains of worsening constipation for the last few weeks. Patient has been taking MiraLax Colace and started senna. She has been increasing fiber and fluid intake [facility] Medical History (Updated 09/08/24 @ 11:06 by Soni Marie MD) Osteopenia after menopause Solitary nodule of right lobe of thyroid Hyperlipidemia DM type 2 (diabetes mellitus, type 2) GERD (gastroesophageal reflux disease) HTN (hypertension) Surgical History Hx of tonsillectomy Hx of gastric bypass History of colposcopy Hx of excision of lamina of cervical vertebra for decompression of spinal cord Hx of colonoscopy Family History Father No problems noted. 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[employer] Cognitive needs: No Hearing needs: No Vision needs: Yes Questionnaire Thrive Questionnaire Date Thrive assessed: 09/08/24 I am a: Patient What is your living situation today?: I have a steady place to live Within the past 12 months, did the food you bought not last and you didn't have the money to get more?: Never true Within the past 12 months, did you worry whether your food would run out before you got money to buy more?: Never true Do you have trouble paying for medicines?: No Do you have trouble getting transportation to medical appointments?: No Do you have trouble paying your heating and electricity bill?: No Do you have trouble taking care of your child, family member or friend?: No Do you have trouble with day-to-day activities such as bathing, preparing meals, shopping, managing finances, etc.?: No Are you currently unemployed and looking for a job?: No Are you interested in more education?: No Please select the resources that you would like help with: None Currently or been in a relationship where the following occur: No concerns reported THRIVE Score: 0 AUDIT C Alcohol Use Questionnaire (AUDIT-C) 1. How often do you have a drink containing alcohol?: Never 3. How often do you have six or more drinks on one occasion?: Never Total Score: 0 ANGLE-7 AMB Questionnaire ANGLE-7 Date ANGLE - 7 assessed: 09/08/24 Feeling nervous, anxious, or on edge: 0 = Not at all Not being able to stop or control worryin = Not at all Worrying too much about different things: 0 = Not at all Trouble relaxin = Not at all Being so restless that it is hard to sit still: 0 = Not at all Becoming easily annoyed or irritable: 0 = Not at all Feeling afraid as if something awful might happen: 0 = Not at all Total ANGLE-7 score (0-4 normal; 5-9 mild; 10-14 moderate; 15-21 severe): 0 Source: Developed by Drs. Rober Padilla, Isis Lozano, Olvin Rosas and colleagues, with an educational moriah from [employer]. ANGLE-7 Assessment Billing ANGLE-7 Assessment Tool: ANGLE-7 Assessment 89923 Review of Systems Const All systems reviewed & are unremarkable except as noted in HPI and below Eyes Reports no additional complaints ENT Reports no additional complaints Card Reports no additional complaints Resp Reports no additional complaints GI Reports no additional complaints Reports no additional complaints Physical exam (Primary Care) Vital Signs: Last Vital Signs Temp 97.5 F 09/08/24 10:12 Pulse 68 09/08/24 10:12 Resp 18 09/08/24 10:12 BP 116/74 09/08/24 10:12 Pulse Ox 98 09/08/24 10:12 Oxygen Delivery Method Room Air 09/08/24 10:12 BMI result Body Mass Index 30.1 Tobacco/Smoking Status: Tobacco use Status Tobacco use date assessed 09/08/24 09/08/24 10:17 Patient Tobacco Use Status Never used Tobacco 09/08/24 10:17 e-Cigarette/Vaping Use Never Used 09/08/24 10:17 Thrive Assessment: Date of Thrive Assessment Date Thrive assessed 09/08/24 09/08/24 10:17 Currently or been in a relationship where the following occur: No concerns reported Const General: no acute distress HENMT Head: Yes normal to inspection Face and sinus: Yes normal facial exam Eyes General: appearance normal, both eyes and all related structures Neck Neck: Yes no lymphadenopathy and Yes supple Resp Effort & Inspection: normal respiratory effort Auscultation: clear to auscultation bilaterally Cardio Rhythm: regular rhythm Heart sounds: S1 normal heart sound present and S2 normal heart sound present GI Inspection: Yes normal to inspection Palpation (GI): Soft to palpation Percussion: Yes normal to percussion Auscultation: normal bowel sounds Extrem Other: Diabetic foot exam intact bilaterally General: Yes no clubbing, cyanosis or edema Coding Level of Care Code Est Pt Prev Care 40-64y(39187) Diagnoses HTN (hypertension) I10 Hyperlipidemia E78.5 DM type 2 (diabetes mellitus, type 2) E11.9 Additional Codes ANGLE-7 Assessment Billing - ANGLE-7 Assessment Tool: ANGLE-7 Assessment 27844 ([id number]) Assessment & Plan Assessment & Plan (1) HTN (hypertension): Code(s): I10 - Essential (primary) hypertension Category: Medical Plan: Continue current medications (2) Hyperlipidemia: Code(s): E78.5 - Hyperlipidemia, unspecified Category: Medical Plan: Continue statin (3) DM type 2 (diabetes mellitus, type 2): Comment: A1c is 5.4, decrease metformin to 500 mg twice a day and continue Ozempic, ADA diet regular physical activity, follow-up in 3 months with a fasting labs before Code(s): E11.9 - Type 2 diabetes mellitus without complications Category: Medical Plan: A1c is 5.5, continue metformin and Jardiance change Ozempic to Mounjaro starting with 0.25 mg weekly for the 1st month increasing as patient tolerate. Follow-up in 4 months with a fasting labs before Orders: Orders Comprehensive [place]. Panel Fast 4 Months E11.9 - Type 2 diabetes mellitus without complications, E78.5 - Hyperlipidemia, unspecified, I10 - Essential (primary) hypertension Complete Blood Count Auto Diff 4 Months E11.9 - Type 2 diabetes mellitus without complications, E78.5 - Hyperlipidemia, unspecified, I10 - Essential (primary) hypertension Lipid Panel 4 Months E11.9 - Type 2 diabetes mellitus without complications, E78.5 - Hyperlipidemia, unspecified, I10 - Essential (primary) hypertension Microalbumin, Random (w Creat) 4 Months E11.9 - Type 2 diabetes mellitus without complications, E78.5 - Hyperlipidemia, unspecified, I10 - Essential (primary) hypertension TSH reflex Free T4 4 Months E11.9 - Type 2 diabetes mellitus without complications, E78.5 - Hyperlipidemia, unspecified, I10 - Essential (primary) hypertension Magnesium 4 Months E83.42 - Hypomagnesemia Hemoglobin A1c 4 Months E11.9 - Type 2 diabetes mellitus without complications, E78.5 - Hyperlipidemia, unspecified, I10 - Essential (primary) hypertension Medications: New Mounjaro (tirzepatide) 2.5 mg (0.5 mL) subcut QWEEK 2 mL 0RF NS Discontinued hydrochlorothiazide Discontinued Reason: Doctor's Order 12.5 mg PO DAILY 90 tabs 0RF Ozempic (semaglutide) Discontinued Reason: Doctor's Order 2 mg (0.75 mL) subcut QWEEK 9 mL 3RF NS amoxicillin-pot clavulanate 875-125 mg Discontinued Reason: Doctor's Order 1 tab PO BID 14 tabs 0RF
--- OUTSIDE RECORDS SUMMARY | 2024-09-08 11:27 | XMS_ITS | Clinical Summary ---
Author Organization [facility] it Address [address] [place] [address] Care Team Providers Care Television Production Clerk Name Role Phone Michelle Peralta Primary Care Pro vider Surgical History Surgery Date Site/Laterality Comments GASTRIC BYPASS 07/06/01 PROCEDURE: [place] GASTRIC RSTCV W/BYP W/SM INT RCNSTJ LIMIT ABSRPJ COLONOSCOPY 11/09/2010 PROCEDURE: [place] COLONOSCOPY FLX DX W/COLLJ SPEC WHEN PFRMD; COMMENT: normal TONSILLECTOMY PROCEDURE: HISTORICAL TONSILLECTOMY COLPOSCOPY PROCEDURE: CA COLPOSCOPY ENTIRE VAGINA W/CERVIX IF PRESENT; COMMENT: abnormal pap OTHER SURGICAL HISTORY 07/24/2017 PROCEDURE: [place] ARTHRD ANT INTERBODY DECOMPRESS CERVICAL BELW C2 OTHER SURGICAL HISTORY 07/2017 PROCEDURE: [place] ARTHRD ANT INTERBODY MIN DSC CRV BELOW C2; COMMENT: Dr. Thorne Medical History Medical History Date Comments Polycystic ovaries 04/03/2005 DX:Polycystic ovaries Esophageal reflux 04/03/2005 DX:Esophageal reflux Obesity, unspecified 04/03/2005 DX:Obesity, unspecified Type II or unspecified type diabetes mellitus without mention of complication, uncontrolled 04/03/2005 DX:Type II or unspecified ty pe diabetes mellitus without mention of complication, uncontrolled Diabetes mellitus, type 2 (C MS/HCC V24, CMS/HCC V28) 11/20/2010 DX:Diabetes mellitus, type 2 (HCC) Obesity 04/05/2013 DX:Obesity; COMM ENT: HTN (hypertension) 04/03/2005 DX:HTN (hyper tension) Hypercholesterolemia 11/13/2007 DX:Hypercho lesterolemia Atherosclerosis of both carotid arteries 3 DX:Atherosclerosis of both carotid arteries Shoulder pain 09/11/2012 DX:Shoulder pain 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 DX:HPV in female ; COMMENT: By cytology 05/2013, Dr Smith Type 2 diabetes mellitus wit hout complication ([facility] V24, [facility] V28) 11/22/2014 DX:Type 2 diab etes mellitus without complication (HCC) B12 deficiency DX:B12 deficienc y Cervical myelopathy (CMS/HCC V24, [facility] V28) DX:Cervical myelopathy (HCC) Family History Medical History Relation Name Comments Other: Other Father age 26 ASHD Diabetes Mother valvular heart disease Relation Name Status Comments Aunt Alive Maternal - floyd nettles ca - dx in 70s. Father (Age 36) MS/CAD, roach dden cardiac Maternal Grandmother (Age 69) [...] 2023- season) 2023 05/15/2020, 05/05/2020 Influenza Vaccine (Season Ended) 2024 11/11/2019, 12/12/2018, 12/15/2013, Additional history exists DTaP,Tdap,and Td [...] age to complete this topic Meningococcal B Vaccine Aged Out No l onger eligible based on patient's age to complete this topic RSV Immunization Patients Under 20 months Aged Out No longer eligible based on patient's age to complete this topic Varicella Vaccines Aged Out No longer eligible based on patient's age to complete this topic Procedures Procedure Name Priority Date/Time Associated Diagnosis Comments [facility] SCREENING DIGITAL Routine 06/20/2020 9:00 AM EDT Encounter for screening mammogram for malignant neoplasm of breast from Last 3 Months or Most Recently Relevant to Health Maintenance Results * [facility] SCREENING DIGITAL (06/20/2020 9:00 AM EDT) Anatomical Region Laterality Modality Mammography 06/20/2020 7:01 AM EDT Narrative 06/20/2020 9:00 AM EDT [facility] Diagnostic Imaging Department [address] [place], [place] [id number] Patient: MARIELY RODRIGUEZ./Age/Sex: 1960 - 59 - F Unit#: [id number] Location/Status: SPDIMAM/REG CLI Mnemonic/Ordering Site: [facility] Ordering Physician: JOSEPH DOBBINS MD [facility] Screening Digital - 06/20/20730 EXAM: [facility] Screening Digital EXAM DATE AND TIME: 06/20/2020 7:31 AM HISTORY: Screening. Maternal aunt had breast carcinoma in her 70's. COMPARISON: 05/10/19, 05/02/17, 07/06/15 TECHNIQUE: CC and MLO views of both breasts were obtained using full field digital mammography. Bilateral digital breast tomosynthesis was performed in the MLO projection. Computer aided detection with the [employer]book[employer] was employed. TISSUE DENSITY: b. There are scattered areas of fibroglandular density. FINDINGS: No suspicious masses, grouped microcalcifications, or areas of architectural distortion are seen. The skin and vascularity are unremarkable. IMPRESSION: Stable mammographic appearance of the breasts. No evidence of malignancy is seen. A negative mammogram in the presence of a clinically suspicious palpable abnormality does not preclude the possibility of malignancy or alter the indications for biopsy. BI-RADS: Category 1: Negative RECOMMENDATION(S): 1: Routine screening mammogram BILATERAL in 1 year. 10601, 58896 3341F, 7025F Dictating Physician: DAVID SANDERSON MD Electronically Signed by: DAVID SANDERSON MD Dic Date/Time: 06/20/20899 Sign date/Time: 06/20/20899 Procedure Note David Sanderson MD - 03/12/2022 [facility] Diagnostic Imaging Department [address] [place] [id number] Patient: MARIELY RODRIGUEZ /Age/Sex: 1960 - 59 - F Unit#: [id number] Location/Status: SPDIMAM/REG CLI Mnemonic/Ordering Site: [facility] Ordering Physician: JOSEPH DOBBINS MD [facility] Screening Digital - 06/20/20730 EXAM: [facility] Screening Digital EXAM DATE AND TIME: 06/20/2020 7:31 AM HISTORY: Screening. Maternal aunt had breast carcinoma in her 70's. COMPARISON: 05/10/19, 05/02/17, 07/06/15 TECHNIQUE: CC and MLO views of both breasts were obtained using fullfield digital mammography. Bilateral digital breast tomosynthesis was performedin the MLO projection. Computer aided detection with the eflow 7.2-zintinas employed. TISSUE DENSITY: b. There are scattered [...] Routine screening mammogram BILATERAL in 1 year. 68597, 18513 3341F, 7019F Dictating Physician: DAVID SANDERSON MD Electronically Signed by: DAVID SANDERSON MD Dic Date/Time: 06/20/20899 Sign date/Time: 06/20/20899 us Joseph Dobbins MD IMG BI PROCEDURES Final Resul t from Last 3 Months or Most Recently Relevant to Health Maintenance Advance Directives Documents on File Type Date Recorded Patient Agent Ticketing Gate Expl anation Health Care Decision (hx) 07/24/2017 AD ALBRECHT DIRECTIVE Health Care Decision (hx) 07/24/2017 AD ALBRECHT DIRECTIVE Care Teams Television Production Clerk Relationship Specialty Start Date End Date Michelle Peralta DO PCP - General Counseling Aide 06/02/17
== END 2024-09-08 11:07 | disposition home or self-care (01) ==
LOC: HO.HMCC 10:09
PROVIDERS: PCP Internal Medicine; Visit Provider Internal Medicine
DX: Z00.00 Encounter for general adult medical examination without abnormal findings (principal); I10 Essential (primary) hypertension; E78.5 Hyperlipidemia, unspecified; E11.9 Type 2 diabetes mellitus without complications

== ENCOUNTER → 2024-09-08 10:09 | Outpatient (BNVA) | payer OTHER, SELFPAY | PROVIDERS: PCP Internal Medicine; Visit Provider Internal Medicine | DX: Z00.00 Encounter for general adult medical examination without abnormal findings (principal); I10 Essential (primary) hypertension; E78.5 Hyperlipidemia, unspecified; E11.9 Type 2 diabetes mellitus without complications | CPT/HCPCS: 96127 ==

== ENCOUNTER → 2024-09-21 12:49 | Outpatient (BNVA) | payer OTHER, SELFPAY | PROVIDERS: PCP Internal Medicine; Visit Provider Registered Nurse | DX: Z13.89 Encounter for screening for other disorder (principal) | CPT/HCPCS: 99202 ==

== ENCOUNTER → 2024-10-05 08:04 | Outpatient (BNVA) | payer OTHER, SELFPAY | PROVIDERS: PCP Internal Medicine; Visit Provider Registered Nurse | DX: Z13.89 Encounter for screening for other disorder (principal) | CPT/HCPCS: 99213 ==

== ENCOUNTER 2025-01-12 07:55 | Outpatient (AMB) | payer OTHER, SELFPAY ==
--- OUTSIDE RECORDS SUMMARY | 2025-01-12 07:58 | XMS_ITS | Clinical Summary ---
Author Organization [facility] it Address [address] [place] [address] Care Team Providers Care Custom Garment Designer Name Role Phone Michelle Peralta Primary Care Pro vider Surgical History Surgery Date Site/Laterality Comments GASTRIC BYPASS 07/06/01 PROCEDURE: [place] GASTRIC RSTCV W/BYP W/SM INT RCNSTJ LIMIT ABSRPJ COLONOSCOPY 11/09/2010 PROCEDURE: [place] COLONOSCOPY FLX DX W/COLLJ SPEC WHEN PFRMD; COMMENT: normal TONSILLECTOMY PROCEDURE: HISTORICAL TONSILLECTOMY COLPOSCOPY PROCEDURE: [place] COLPOSCOPY ENTIRE VAGINA W/CERVIX IF PRESENT; COMMENT: abnormal pap OTHER SURGICAL HISTORY 07/24/2017 PROCEDURE: [place] ARTHRD ANT INTERBODY DECOMPRESS CERVICAL BELW C2 OTHER SURGICAL HISTORY 07/2017 PROCEDURE: [place] ARTHRD ANT INTERBODY MIN DSC CRV BELOW [...] DX:B12 deficienc y Cervical myelopathy (CMS/HCC V24, CMS/HCC V28) DX:Cervical myelopathy (HCC) Family History Medical History Relation Name Comments Other: Other Father age 26 ASHD Diabetes Mother valvular heart disease Relation Name Status Comments Aunt Alive Maternal - floyd nettles ca - dx in 70s. Father (Age 36) MO/CAD, roach dden cardiac Maternal Grandmother (Age 69) [...] 02/11/2014 Breast Cancer Screening 06/20/2022 06/20/2020, 05/10 Depression Screening 03/24/2024 COVID-19 Vaccine ( - 2024- season) 2024 05/15/2020, 05/05/2020 Influenza Vaccine (#1) 2024 0, 12/12/2018, 12/15/2013, Additional history exists DTaP,Tdap,and Td Vaccines (3 - Td or Tdap) 02/03/2027 02/03/2017, 09/26/2006 RSV Immunization Adult Patients (1 - 1-dose 75+ series) 07/09/2035 Zoster Vaccines Completed 04/04/2019, 12/12/2018 HIB Vaccines [...] Procedure Name Priority Date/Time Associated Diagnosis Comments [facility] SCREENING DIGITAL Routine 06/20/2020 9:00 AM EDT Encounter for screening mammogram for malignant neoplasm of breast from Last 3 Months or Most Recently Relevant to Health Maintenance Results * [facility] SCREENING DIGITAL (06/20/2020 9:00 AM EDT) Anatomical Region Laterality Modality Mammography 06/20/2020 7:01 AM EDT Narrative 06/20/2020 9:00 AM EDT [facility] Diagnostic Imaging Department [address] [place] [address] Patient: MARIELY KRUSE D.O.B./Age/Sex: 1960 - 59 - F Unit#: [id number] [facility]Ordering [facility]: [facility] Ordering Physician: JOSEPH DOBBINS MD [facility] Screening Digital - 06/20/20 - 730 EXAM: [facility] Screening Digital EXAM DATE AND TIME: 06/20/2020 7:31 AM HISTORY: Screening. Maternal aunt had breast carcinoma in her 70's. COMPARISON: 05/10/19, 05/02/17, 07/06/15 TECHNIQUE: CC and MLO views of both breasts were obtained using full field digital mammography. Bilateral digital breast tomosynthesis was performed in the MLO projection. Computer aided detection with the Domain Apps 7.2-H was employed. TISSUE DENSITY: b. There are [...] Routine screening mammogram BILATERAL in 1 year. 18376, 73894 3341F, 7025F Dictating Physician: THERESA SANDERSON MD Electronically Signed by: THERESA SANDERSON MD Dic Date/Time: 06/20/20899 Sign date/Time: 06/20/20899 Procedure Note Theresa Sanderson MD - 03/12/2022 [facility] Diagnostic Imaging Department [address] [place] [id number] Patient: MARIELY KRUSE D.O.B./Age/Sex: 1960 - 59 - F Unit#: [id number] Location/Status: SPDIMA/REG CLI Mnemonic/Ordering Site: [facility] Ordering Physician: JOSEPH DOBBINS MD [facility] Screening Digital - 06/20/20730 EXAM: [facility] Screening Digital EXAM DATE AND TIME: 06/20/2020 7:31 AM HISTORY: Screening. Maternal aunt had breast carcinoma in her 70's. COMPARISON: 05/10/19, 05/02/17, 07/06/15 TECHNIQUE: CC and MLO views of both breasts were obtained using fullfield digital mammography. Bilateral digital breast tomosynthesis was performedin the MLO projection. Computer aided detection with the Domain Apps 7.2-FARR Technologiesas employed. TISSUE DENSITY: b. There are scattered [...] Routine screening mammogram BILATERAL in 1 year. 04916, 04946 3341F, 7025F Dictating Physician: THERESA SANDERSON MD Electronically Signed by: THERESA SANDERSON MD Dic Date/Time: 06/20/20899 Sign date/Time: 06/20/20899 us Joseph Dobbins MD IMG BI PROCEDURES Final Resul t from Last 3 Months or Most Recently Relevant to Health Maintenance Advance Directives Documents on File Type Date Recorded Patient Biztalk Software Developer Expl anation Health Care Decision (hx) 07/24/2017 AD ALBRECHT DIRECTIVE Health Care Decision (hx) 07/24/2017 AD ALBRECHT DIRECTIVE Care Teams Custom Garment Designer Relationship Specialty Start Date End Date Michelle Peralta DO PCP - General Deli Worker 06/02/17
--- OUTSIDE RECORDS SUMMARY | 2025-01-12 07:58 | XMS_ITS | Patient Health Record ---
Author Organization [facility] Address [address] [place] [address] Care Team Providers Care Finger Grip Machine Operator Name Role Phone Michelle Fine Primary Care Provid er Unavailable Ning Ordonez Unavailable [phone] Reason For Referral No Information Medications Medication SIG (Take, Route, Frequency, Duration) Notes Start Date End Date Status Lisinopril qd Active metFORMIN HCl bid Active Simvastatin 40 mg qd Active Loratadine qd Active Calcium qd Active Prevacid qd Active Vitamin B 12 500 MCG 1 tablet Orally Onc e a day; Duration: 30 day(s) qd 02/05/2019 Active Aspirin 81 81 MG 1 tablet Orally Once a day; Duration: 30 day(s) qd 02/05/2019 Active Vitamin D3 25 MCG (1000 UT) 1 tablet Orally Once a day; Duration: 30 day(s) qd 02/05/2019 Active Immunizations Vaccine [...] Insured Coverage Start Date Coverage End Date [facility] [address] [place] [address] [id number] Mariely Rodriguez Self - patient is the insured Medical (General) History Medical History History ICD Code Diabetes mellitus High blood pressure Reflux ( GERD) Chicken pox Surgical History Surgery Date(Month/Year) gastric bypass 2001 cervical fusion 2017 tonsillectomy 1965
[2025-01-12 08:01] VITALS: BMI 29.8
--- NOTE | 2025-01-12 08:01 | A.OFFVIS_ITS ---
Vital Signs 01/12/25 08:01 Height 5 ft 3 in Weight 168 lb BMI 29.8 Intake Visit Reasons: Type II diabetes, foot exam Intake Note: Mariely is a 64 year old female who presents to the office today as a new patient visit for Type II diabetes, foot exam. Pt states her last reported glucose was 104 on Friday and her last reported A1c was 5.6%. She denies numbness and tingling, and burning in her feet and she has no history of wounds or amputation to her feet. Patient has not had any nausea, vomitting, dizziness and headaches recently. Patient notes she has callous on the lateral aspect of her left foot. Allergies No Known Allergies Allergy (Verified 01/12/25 08:02) HPI Comments Details: The patient is a 64-year-old female with a PMH as seen below presenting with foot-related issues, including callus formation and nail abnormalities. The patient reports a history of a hallucal nail that came off years ago, which now grows back but peels and breaks intermittently. Additionally, she has a callus on the lateral side of her left foot, which becomes painful when walking, especially on weekends when she is more active. The patient has a history of plantar fasciitis, for which she received cortisone injections approximately five years ago, with no recurrence of symptoms since then. She wears supportive footwear at home to prevent recurrence and alleviate discomfort. The patient experiences muscle cramps in her left leg, particularly in the calf, foot, and toes, which last a few minutes and are more frequent when not wearing compression socks. She takes magnesium and ensures adequate hydration to manage these cramps. Patient has a history of diabetes and states her most recent blood glucose was 104 and A1c was 5.6. She denies any numbness or tingling. She states she avoid barefoot walking and monitors her feet daily. She denies any recent pedal injuries. Denies any other pedal concerns. [facility] Medical History (Updated 01/12/25 @ 08:18 by Annamarie Worthington DPM) Keratosis punctata (palmaris et plantaris) Cramps of left lower extremity Other specified epidermal thickening Osteopenia after menopause Solitary nodule of right lobe of thyroid Hyperlipidemia DM type 2 (diabetes mellitus, type 2) GERD (gastroesophageal reflux disease) HTN (hypertension) Surgical History Hx of tonsillectomy Hx of gastric bypass History of colposcopy Hx of excision of lamina of cervical vertebra for decompression of spinal cord Hx of colonoscopy Family History Father No problems noted. 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[employer] Cognitive needs: No Hearing needs: No Vision needs: Yes Review of Systems Const Details: - Neurological: Denies numbness and tingling. Reports muscle cramps in the left leg, particularly in the calf, foot, and toes. - Endocrine: Reports good blood glucose control with an A1c of 5.6%. All systems reviewed & are unremarkable except as noted in HPI and below Physical Exam Vital Signs: BMI result Body Mass Index 29.8 Extrem Other: B/L LE Focused Physical Exam: Derm: No open lesions, abrasions, or wounds noted. Skin supple and turgor WNL. No clinical signs of infection. No maceration noted. No ecchymosis or discolo ration noted. Toenails noted to be of normal length with hallucal nails appearing dystrophic. Hyperkeratotic lesion noted to the plantar lateral aspect of the left foot near the base of the 5th metatarsal. Vasc: DP/PT pulses palpable. CFT < 3 secs. Temp gradient warm to warm. Pedal hair absent. No varicosities noted. No edema noted. Neuro: Protective sensations grossly intact to light touch and monofilament testing. MSK: Mild pain on palpation to the area of the hyperkeratotic lesion. ROM of the forefoot, hindfoot, and ankles WNL. No crepitus or fluctuance noted. Non- antalgic gait unassisted noted. No gross abnormalities noted. Office Procedures AMB Debridement/Avulsion Podia Details: Debrided the hyperkeratotic lesion on the left foot using a #15 blade with no incidents. 80322-[id number] of Callus (1) Procedure code (CPT) selection complete Diabetic Foot Exam G9226 - Diabetic Foot Exam Results Reviewed Results Reviewed: Laboratory Tests 08/28/24 08:10 Fasting Glucose 88 Estimat Average Glucose 111 Hemoglobin A1c % 5.5 Assessment & Plan Assessment & Plan (1) DM type 2 (diabetes mellitus, type 2): Comment: A1c is 5.4, decrease metformin to 500 mg twice a day and continue Ozempic, ADA diet regular physical activity, follow-up in 3 months with a fasting labs before Code(s): E11.9 - Type 2 diabetes mellitus without complications Category: Medical (2) Other specified epidermal thickening: Code(s): L85.8 - Other specified epidermal thickening Category: Medical (3) Cramps of left lower extremity: Code(s): R25.2 - Cramp and spasm Category: Medical (4) Keratosis punctata (palmaris et plantaris): Code(s): L85.2 - Keratosis punctata (palmaris et plantaris) Category: Medical Plan Patient was informed and verbally consented to the use of an ambient scribe for clinic note documentation during this visit. Educated patient on the effects of diabetes to the lower extremities. I discussed with the patient the management of her callus, including shaving it down to prevent pain and the use of Vaseline or an emollient to slow its return. We also talked about the importance of wearing compression socks and taking magnesium and electrolytes to manage her muscle cramps. I advised her to follow up in one year unless her calluses become problematic sooner. - Debrided the hyperkeratotic lesion of the left foot. - The patient is advised to apply Vaseline or an emollient to slow down callus formation. - Continue wearing compression socks and taking magnesium and electrolytes to manage muscle cramps. - Continue wearing supportive shoe gear and avoid barefoot walking. - Continue to monitor feet daily. - Continue diabetic management as per PCP. RTC in 1 year for re-evaluation. Orders: Orders AMB Diabetic Foot Exam Today E11.9 - Type 2 diabetes mellitus without complications, L85.2 - Keratosis punctata (palmaris et plantaris), L85.8 - Other specified epidermal thickening, R25.2 - Cramp and spasm AMB Debridement/Avulsion Podiatry Today E11.9 - Type 2 diabetes mellitus without complications, L85.2 - Keratosis punctata (palmaris et plantaris), L85.8 - Other specified epidermal thickening, R25.2 - Cramp and spasm Coding Level of Care Code New Pt Level 4 (94740) Diagnoses DM type 2 (diabetes mellitus, type 2) E11.9 Other specified epidermal thickening L85.8 Cramps of left lower extremity R25.2 Keratosis punctata (palmaris et plantaris) L85.2 CPT Codes Skin Debridement - CPT: 65082-Kncpaqdseql of Callus (1) ([id number]) Diabetic Foot Exam - CPT: G9226 - Diabetic Foot Exam ([id number]) Time Spent (min) 56
== END 2025-01-12 08:18 | disposition home or self-care (01) ==
PROVIDERS: PCP Internal Medicine; Visit Provider Student in an Organized Health Care Education/Training Program
DX: E11.9 Type 2 diabetes mellitus without complications (principal); L85.8 Other specified epidermal thickening; R25.2 Cramp and spasm; L85.2 Keratosis punctata (palmaris et plantaris)
CPT/HCPCS: 11055; 99204; G9226

== ENCOUNTER → 2025-01-12 07:55 | Outpatient (BNVA) | payer OTHER, SELFPAY | PROVIDERS: PCP Internal Medicine; Visit Provider Student in an Organized Health Care Education/Training Program | DX: L85.8 Other specified epidermal thickening (principal); R25.2 Cramp and spasm; L85.2 Keratosis punctata (palmaris et plantaris); E11.628 Type 2 diabetes mellitus with other skin complications; L84 Corns and callosities; Z79.84 Long term (current) use of oral hypoglycemic drugs; Z79.85 Long-term (current) use of injectable non-insulin antidiabetic drugs | CPT/HCPCS: 11055 ==

== ENCOUNTER 2025-02-05 07:50 | Outpatient (REF) | payer OTHER, SELFPAY ==
--- OUTSIDE RECORDS SUMMARY | 2025-02-05 07:53 | XMS_ITS | Patient Health Record ---
Author Organization [facility] Address [address] [place] [address] Care Team Providers Care Rotary Envelope Machine Operator Name Role Phone Michelle Fine Primary Care Provid er Unavailable Ning Ordonez Unavailable [phone] Reason For Referral No Information Medications Medication [...] Insured Coverage Start Date Coverage End Date [facility] [address] [place] [address] [phone] [id number] Mariely Rodriguez Self - patient is the insured Medical (General) History Medical History History ICD Code Diabetes mellitus High blood pressure Reflux ( GERD) Chicken pox Surgical History Surgery Date(Month/Year) gastric bypass 2001 cervical fusion 2017 tonsillectomy 1965
--- OUTSIDE RECORDS SUMMARY | 2025-02-05 07:53 | XMS_ITS | Clinical Summary ---
Author Organization [facility] it Address [address] [place] [address] Care Team Providers Care Geophysical Engineer Name Role Phone Michelle Peralta Primary Care Pro vider Surgical History Surgery Date Site/Laterality Comments GASTRIC BYPASS 07/06/01 PROCEDURE: [place] GASTRIC RSTCV W/BYP W/SM INT RCNSTJ LIMIT ABSRPJ COLONOSCOPY 11/09/2010 PROCEDURE: MN COLONOSCOPY FLX DX W/COLLJ SPEC WHEN PFRMD; COMMENT: normal TONSILLECTOMY PROCEDURE: HISTORICAL TONSILLECTOMY COLPOSCOPY PROCEDURE: MN COLPOSCOPY ENTIRE VAGINA W/CERVIX IF PRESENT; COMMENT: abnormal pap OTHER SURGICAL HISTORY 07/24/2017 PROCEDURE: MN ARTHRD ANT INTERBODY DECOMPRESS CERVICAL BELW C2 OTHER SURGICAL HISTORY 07/2017 PROCEDURE: MN ARTHRD ANT INTERBODY MIN DSC CRV BELOW [...] - dx in 70s. Father (Age 36) [place]/CAD, roach dden cardiac Maternal Grandmother (Age 69) [...] Procedure Name Priority Date/Time Associated Diagnosis Comments [facility] SCREENING DIGITAL Routine 06/20/2020 9:00 AM EDT Encounter for screening mammogram for malignant neoplasm of breast from Last 3 Months or Most Recently Relevant to Health Maintenance Results * [facility] SCREENING DIGITAL (06/20/2020 9:00 AM EDT) Anatomical Region Laterality Modality Mammography 06/20/2020 7:01 AM EDT Narrative 06/20/2020 9:00 AM EDT [facility] Diagnostic Imaging Department [address] [place] [address] Patient: MARIELY KRUSE D.O.B./Age/Sex: 1960 - 59 - F Unit#: [id number] Location/Status: [facility]IMA/REG CLI Mnemonic/Ordering Site: DIGSC/SPMAM Ordering Physician: JOSEPH DOBBINS MD Slava Screening Digital - 06/20/20 - 730 EXAM: [facility] Screening Digital EXAM DATE AND TIME: 06/20/2020 7:31 AM HISTORY: Screening. Maternal aunt had breast carcinoma in her 70's. COMPARISON: 05/10/19, 05/02/17, 07/06/15 TECHNIQUE: CC and MLO views of both breasts were obtained using full field digital mammography. Bilateral digital breast tomosynthesis was performed in the MLO projection. Computer aided detection with the Recovers 7.2-H was employed. TISSUE DENSITY: b. There [...] Routine screening mammogram BILATERAL in 1 year. 95964, 55145 3341F, 7025F Dictating Physician: DAVID SANDERSON MD Electronically Signed by: DAVID SANDERSON MD Dic Date/Time: 06/20/20899 Sign date/Time: 06/20/20899 Procedure Note David Sanderson MD - 03/12/2022 [facility] Diagnostic Imaging Department [address] [place] [address] [id number] Patient: MARIELY KRUSE D.O.B./Age/Sex: 1960 - 59 - F Unit#: [id number] Location/Status: SPDIMA/REG CLI Mnemonic/Ordering Site: [facility] Ordering Physician: JOSEPH DOBBINS MD [facility] Screening Digital - 06/20/20730 EXAM: [facility] Screening Digital EXAM DATE AND TIME: 06/20/2020 7:31 AM HISTORY: Screening. Maternal aunt had breast carcinoma in her 70's. COMPARISON: 05/10/19, 05/02/17, 07/06/15 TECHNIQUE: CC and MLO views of both breasts were obtained using fullfield digital mammography. Bilateral digital breast tomosynthesis was performedin the MLO projection. Computer aided detection with the Recovers 7.2-Solid[employer] Systemsas employed. TISSUE DENSITY: b. There are scattered [...] Routine screening mammogram BILATERAL in 1 year. 76664, 33988 3341F, 7025F Dictating Physician: DAVID SANDERSON MD Electronically Signed by: DAVID SANDERSON MD Dic Date/Time: 06/20/20899 Sign date/Time: 06/20/20899 us Joseph Dobbins MD IMG BI PROCEDURES Final Resul t from Last 3 Months or Most Recently Relevant to Health Maintenance Advance Directives Documents on File Type Date Recorded Patient Foot Orthopedist Expl anation Health Care Decision (hx) 07/24/2017 AD ALBRECHT DIRECTIVE Health Care Decision (hx) 07/24/2017 AD ALBRECHT DIRECTIVE Care Teams Geophysical Engineer Relationship Specialty Start Date End Date Michelle Peralta DO PCP - General Ignition Specialist 06/02/17
[2025-02-05 11:43] LABS: MANUAL DIFF FLAG NO
[2025-02-05 11:54] LABS: Hematocrit 40.0 % (37.0-47.0); Hemoglobin 12.5 g/dl (12.0-16.0); Imm Gran Abs Auto 0.01 X10*3/uL (0.00-0.03); Imm Gran Pct Auto 0.2 % (0.0-0.4); Lymphocytes Absolute Auto 1.3 X10*3/uL (1.2-4.9); Mean Corpuscular HGB Conc 31.3 g/dl (31.0-35.0); Mean Corpuscular Hemoglobin 25.3 pg (27.0-33.0); Mean Corpuscular Volume 80.8 fL (80.0-98.0); NRBC Abs Auto 0.000 X10*3/uL (0.0-0.012); NRBC Pct Auto 0.0 /100WBC (0.0-0.2); Platelet Count 251 X10*3/uL (160-400); Red Blood Count 4.95 X10*6/uL (4.20-5.50); White Blood Count 5.1 X10*3/uL (4.8-10.8)
[2025-02-05 12:22] LABS: Alanine Aminotransferase 16 U/L (0-31); Albumin Level 3.9 g/dL (3.5-5.0); Alkaline Phosphatase 43 U/L (39-117); Anion Gap 14 (12-20); Aspartate Amino Transferase 29 U/L (5-31); Blood Urea Nitrogen 13 mg/dL (9-16); Calcium 9.0 mg/dL (8.4-10.2); Carbon Dioxide 26 mmol/L (22-29); Chloride 102 mmol/L (96-108); Cholesterol 130 mg/dL (<200); Estimated Glomerular Filt Rate > 60; HDL Cholesterol 56 mg/dL (>40); Magnesium 1.9 mg/dL (1.6-2.6); Potassium 4.8 mmol/L (3.3-5.1); Sodium 137 mmol/L (135-145); Total Protein 6.2 g/dL (6.5-8.0); Triglycerides 87 mg/dL (<150)
[2025-02-05 12:44] LABS: Microalbum/Creatinine Ratio Ur 24.4 ug/mg cr (<30)
== END 2025-02-05 07:51 | disposition home or self-care (01) ==
LOC: HO.HMGCLDS 07:50
PROVIDERS: PCP Internal Medicine; Visit Provider Internal Medicine
DX: E11.9 Type 2 diabetes mellitus without complications (principal); I10 Essential (primary) hypertension; R25.2 Cramp and spasm; E78.5 Hyperlipidemia, unspecified
CPT/HCPCS: 36415; 80048; 80053; 80061; 82043; 82570; 83036; 83735; 84443; 85025

== ENCOUNTER 2025-02-10 14:15 | Outpatient (AMB) | payer OTHER, SELFPAY ==
[2025-02-10 14:17] VITALS: BP 120/72; PULSE 57; O2SAT 98; BMI 29.4
--- NOTE | 2025-02-10 14:17 | MHC.PC.OV ---
Vital Signs 02/10/25 14:17 Height 5 ft 3 in Weight 166 lb BMI 29.4 BP 120/72 Blood Pressure Location Lt brachial Position Sitting Pulse 57 Pulse Source Pulse Oximeter Pulse Oximetry (%) 98 Intake Visit Reasons: Follow up on labs/DM Allergies No Known Allergies Allergy (Verified 02/10/25 14:19) Medication List - Last Reconciled 02/10/25 by Soni Marie MD albuterol sulfate 90 mcg/actuation (Ventolin HFA) 1 inh inhalation QID PRN atorvastatin (Lipitor) 20 mg PO DAILY blood sugar diagnostic (Contour Next Test Strips) test blood sugar twice per day blood-glucose sensor ([employer] G7 Sensor device) USE DIRECTED TO MONITOR BLOOD SUGARS, change sensor every 10 days cholecalciferol (vitamin D3) 25 mcg PO DAILY cyclobenzaprine 5 mg PO BEDTIME PRN docusate sodium 100 mg PO BID empagliflozin (Jardiance) 10 mg PO DAILY [fish oil PO .QD] fluticasone furoate 100 mcg/actuation (Arnuity Ellipta) 1 inh inhalation DAILY gabapentin 100 mg PO BEDTIME lisinopril 40 mg PO DAILY metformin 1,000 mg PO BID Mounjaro (tirzepatide) 5 mg (0.5 mL) subcut QWEEK NS pantoprazole 20 mg PO DAILY triamcinolone acetonide 0.025% 1 appl topical DAILY Tobacco use date assessed: 09/08/24 Fall risk assessment: No Falls in past year Last assessed Fall Risk: 02/10/25 Dental Screening Dental Screen Date: 09/08/24 HPI Follow up on labs/DM HPI Details Patient presents for the follow-up of diabetes hyperlipidemia hypertension stable on current medications. [facility] Medical History Keratosis punctata (palmaris et plantaris) Cramps of left lower extremity Other specified epidermal thickening Osteopenia after menopause Solitary nodule of right lobe of thyroid Hyperlipidemia DM type 2 (diabetes mellitus, type 2) GERD (gastroesophageal reflux disease) HTN (hypertension) Surgical History Hx of tonsillectomy Hx of gastric bypass History of colposcopy Hx of excision of lamina of cervical vertebra for decompression of spinal cord Hx of colonoscopy Family History Father No problems noted. 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[employer] Cognitive needs: No Hearing needs: No Vision needs: Yes Questionnaire Thrive Questionnaire Date Thrive assessed: 06/14/24 I am a: Patient What is your living situation today?: I have a steady place to live Within the past 12 months, did the food you bought not last and you didn't have the money to get more?: Never true Within the past 12 months, did you worry whether your food would run out before you got money to buy more?: Never true Do you have trouble paying for medicines?: No Do you have trouble getting transportation to medical appointments?: No Do you have trouble paying your heating and electricity bill?: No Do you have trouble taking care of your child, family member or friend?: No Do you have trouble with day-to-day activities such as bathing, preparing meals, shopping, managing finances, etc.?: No Are you currently unemployed and looking for a job?: No Are you interested in more education?: No Please select the resources that you would like help with: None Currently or been in a relationship where the following occur: No concerns reported THRIVE Score: 0 AUDIT C Alcohol Use Questionnaire (AUDIT-C) 1. How often do you have a drink containing alcohol?: Never 3. How often do you have six or more drinks on one occasion?: Never Total Score: 0 Score Reviewed/Action Taken: Yes ANGLE-7 AMB Questionnaire ANGLE-7 Date ANGLE - 7 assessed: 09/08/24 Source: Developed by Drs. Rober Padilla, Isis Lozano, Olvin Rosas and colleagues, with an educational moriah from [employer]. Review of Systems Const All systems reviewed & are unremarkable except as noted in HPI and below Eyes Reports no additional complaints ENT Reports no additional complaints Card Reports no additional complaints Resp Reports no additional complaints GI Reports no additional complaints Reports no additional complaints Physical exam (Primary Care) Vital Signs: Last Vital Signs Pulse 57 02/10/25 14:17 BP 120/72 02/10/25 14:17 Pulse Ox 98 02/10/25 14:17 BMI result Body Mass Index 29.4 Tobacco/Smoking Status: Tobacco use Status Tobacco use date assessed 09/08/24 02/10/25 14:20 Patient Tobacco Use Status Never used Tobacco 02/10/25 14:20 e-Cigarette/Vaping Use Never Used 02/10/25 14:20 Thrive Assessment: Date of Thrive Assessment Date Thrive assessed 06/14/24 02/10/25 14:20 Currently or been in a relationship where the following occur: No concerns reported Const General: no acute distress Resp Effort & Inspection: normal respiratory effort Auscultation: clear to auscultation bilaterally Cardio Rhythm: regular rhythm Heart sounds: S1 normal heart sound present and S2 normal heart sound present Extrem Other: Diabetic foot exam skin is intact monofilament sensation intact b/l General: Yes no clubbing, cyanosis or edema Coding Level of Care Code Est Pt Level 4 (25045) Diagnoses HTN (hypertension) I10 Hyperlipidemia E78.5 DM type 2 (diabetes mellitus, type 2) E11.9 Vitamin D deficiency E55.9 Assessment & Plan Assessment & Plan (1) HTN (hypertension): Code(s): I10 - Essential (primary) hypertension Category: Medical Plan: Continue Lisinopril (2) Hyperlipidemia: Code(s): E78.5 - Hyperlipidemia, unspecified Category: Medical Plan: Continue statin (3) DM type 2 (diabetes mellitus, type 2): Comment: A1c is 5.7 01/2025 Code(s): E11.9 - Type 2 diabetes mellitus without complications Category: Medical Plan: A1c is 5.7, continue ADA diet regular exercise current medications. pt will return in 6 months with a fasting labs before (4) Vitamin D deficiency: Code(s): E55.9 - Vitamin D deficiency, unspecified Category: Medical Plan: Continue vitamin-D supplement check the level Orders: Orders IRON PROFILE 6 Months E61.1 - Iron deficiency Comprehensive [place]. Panel Fast 6 Months E11.9 - Type 2 diabetes mellitus without complications, E53.8 - Deficiency of other specified B group vitamins, E55.9 - Vitamin D deficiency, unspecified, E61.1 - Iron deficiency, E78.5 - Hyperlipidemia, unspecified, I10 - Essential (primary) hypertension Complete Blood Count Auto Diff 6 Months E11.9 - Type 2 diabetes mellitus without complications, E53.8 - Deficiency of other specified B group vitamins, E55.9 - Vitamin D deficiency, unspecified, E61.1 - Iron deficiency, E78.5 - Hyperlipidemia, unspecified, I10 - Essential (primary) hypertension Lipid Panel 6 Months E11.9 - Type 2 diabetes mellitus without complications, E53.8 - Deficiency of other specified B group vitamins, E55.9 - Vitamin D deficiency, unspecified, E61.1 - Iron deficiency, E78.5 - Hyperlipidemia, unspecified, I10 - Essential (primary) hypertension Hemoglobin A1c 6 Months E11.9 - Type 2 diabetes mellitus without complications, E53.8 - Deficiency of other specified B group vitamins, E55.9 - Vitamin D deficiency, unspecified, E61.1 - Iron deficiency, E78.5 - Hyperlipidemia, unspecified, I10 - Essential (primary) hypertension Microalbumin, Random (w Creat) 6 Months E11.9 - Type 2 diabetes mellitus without complications, E53.8 - Deficiency of other specified B group vitamins, E55.9 - Vitamin D deficiency, unspecified, E61.1 - Iron deficiency, E78.5 - Hyperlipidemia, unspecified, I10 - Essential (primary) hypertension TSH reflex Free T4 6 Months E11.9 - Type 2 diabetes mellitus without complications, E53.8 - Deficiency of other specified B group vitamins, E55.9 - Vitamin D deficiency, unspecified, E61.1 - Iron deficiency, E78.5 - Hyperlipidemia, unspecified, I10 - Essential (primary) hypertension Vitamin B12 6 Months E11.9 - Type 2 diabetes mellitus without complications, E53.8 - Deficiency of other specified B group vitamins, E55.9 - Vitamin D deficiency, unspecified, E61.1 - Iron deficiency, E78.5 - Hyperlipidemia, unspecified, I10 - Essential (primary) hypertension Vitamin D 25-OH Total 6 Months E11.9 - Type 2 diabetes mellitus without complications, E53.8 - Deficiency of other specified B group vitamins, E55.9 - Vitamin D deficiency, unspecified, E61.1 - Iron deficiency, E78.5 - Hyperlipidemia, unspecified, I10 - Essential (primary) hypertension UA w Microscopic 6 Months E11.9 - Type 2 diabetes mellitus without complications, E53.8 - Deficiency of other specified B group vitamins, E55.9 - Vitamin D deficiency, unspecified, E61.1 - Iron deficiency, E78.5 - Hyperlipidemia, unspecified, I10 - Essential (primary) hypertension Magnesium 6 Months E83.42 - Hypomagnesemia Medications: New clotrimazole-betamethasone 1-0.05 % 1 appl topical BID 15 grams 0RF Discontinued triamcinolone acetonide 0.025% Discontinued Reason: Doctor's Order 1 appl topical DAILY 15 grams 1RF
--- OUTSIDE RECORDS SUMMARY | 2025-02-10 19:42 | XMS_ITS | Clinical Summary ---
Author Organization [facility] it Address [address] [place] [address] Care Team Providers Care Agate Setter Name Role Phone Michelle Peralta Primary Care Pro vider Surgical History Surgery Date Site/Laterality Comments GASTRIC BYPASS 07/06/01 PROCEDURE: [place] GASTRIC RSTCV W/BYP W/SM INT RCNSTJ LIMIT ABSRPJ COLONOSCOPY 11/09/2010 PROCEDURE: FL COLONOSCOPY FLX DX W/COLLJ SPEC WHEN PFRMD; COMMENT: normal TONSILLECTOMY PROCEDURE: HISTORICAL TONSILLECTOMY COLPOSCOPY PROCEDURE: FL COLPOSCOPY ENTIRE VAGINA W/CERVIX IF PRESENT; COMMENT: abnormal pap OTHER SURGICAL HISTORY 07/24/2017 PROCEDURE: FL ARTHRD ANT INTERBODY DECOMPRESS CERVICAL BELW C2 OTHER SURGICAL HISTORY 07/2017 PROCEDURE: FL ARTHRD ANT INTERBODY MIN DSC CRV BELOW [...] Priority Date/Time Associated Diagnosis Comments [facility] SCREENING DIGITAL Routine 06/20/2020 9:00 AM EDT Encounter for screening mammogram for malignant neoplasm of breast from Last 3 Months or Most Recently Relevant to Health Maintenance Results * [facility] SCREENING DIGITAL (06/20/2020 9:00 AM EDT) Anatomical Region Laterality Modality Mammography 06/20/2020 7:01 AM EDT Narrative 06/20/2020 9:00 AM EDT [facility] Diagnostic Imaging Department [address] [place] [address] Patient: MARIELY KRUSE D.O.B./Age/Sex: 1960 - 59 - F Unit#: [id number] [facility]/Ordering Site: DIGSC/SPMAM Ordering Physician: JOSEPH DOBBINS MD [facility] Screening Digital - 06/20/20 - 730 EXAM: [facility] Screening Digital EXAM DATE AND TIME: 06/20/2020 7:31 AM HISTORY: Screening. Maternal aunt had breast carcinoma in her 70's. COMPARISON: 05/10/19, 05/02/17, 07/06/15 TECHNIQUE: CC and MLO views of both breasts were obtained using full field digital mammography. Bilateral digital breast tomosynthesis was performed in the MLO projection. 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 TISSUE DENSITY: b. There [...] Routine screening mammogram BILATERAL in 1 year. [address]0867, 07275 3341F, 7025F Dictating Physician: DAVID SANDERSON MD Electronically Signed by: DAVID SANDERSON MD Dic Date/Time: 06/20/20899 Sign date/Time: 06/20/20899 Procedure Note David Sanderson MD - 03/12/2022 [facility] Diagnostic Imaging Department [address] [place] [address] [id number] Patient: MARIELY KRUSE D.O.B./Age/Sex: 1960 - 59 - F Unit#: [id number] Location/Status: SPDIMA/REG CLI Mnemonic/Ordering Site: [facility] Ordering Physician: JOSEPH DOBBINS MD [facility] Screening Digital - 06/20/20730 EXAM: [facility] Screening Digital EXAM DATE AND TIME: 06/20/2020 7:31 AM HISTORY: Screening. Maternal aunt had breast carcinoma in her 70's. COMPARISON: 05/10/19, 05/02/17, 07/06/15 TECHNIQUE: CC and MLO views of both breasts were obtained using fullfield digital mammography. Bilateral digital breast tomosynthesis was performedin the MLO projection. Computer aided detection with the [employer] employed. TISSUE DENSITY: b. There are scattered [...] Routine screening mammogram BILATERAL in 1 year. 95507, 20263 3341F, 7025F Dictating Physician: DAVID SANDERSON MD Electronically Signed by: DAVID SANDERSON MD Dic Date/Time: 06/20/20899 Sign date/Time: 06/20/20899 us Joseph Dobbins MD IMG BI PROCEDURES Final Resul t from Last 3 Months or Most Recently Relevant to Health Maintenance Advance Directives Documents on File Type Date Recorded Patient Building Estimator Expl anation Health Care Decision (hx) 07/24/2017 AD ALBRECHT DIRECTIVE Health Care Decision (hx) 07/24/2017 AD ALBRECHT DIRECTIVE Care Teams Agate Setter Relationship Specialty Start Date End Date Michelle Peralta DO PCP - General Warp Dyeing Vat Tender 06/02/17
--- OUTSIDE RECORDS SUMMARY | 2025-02-10 19:42 | XMS_ITS | Patient Health Record ---
Author Organization [facility] Address [address] [place] [address] Care Team Providers Care Cylinder Sander Operator Name Role Phone Michelle Fine Primary Care Provid er Unavailable Ning Ordonez Unavailable [phone] Reason For Referral No Information Medications Medication [...] Insured Coverage Start Date Coverage End Date [facility] [address] [place] [address] [phone] [id number] Mariely Rodriguez Self - patient is the insured Medical (General) History Medical History History ICD Code Diabetes mellitus High blood pressure Reflux ( GERD) Chicken pox Surgical History Surgery Date(Month/Year) gastric bypass 2001 cervical fusion 2017 tonsillectomy 1965
== END 2025-02-10 14:44 | disposition home or self-care (01) ==
LOC: HO.HMCC 14:16
PROVIDERS: PCP Internal Medicine; Visit Provider Internal Medicine
DX: I10 Essential (primary) hypertension (principal); E78.5 Hyperlipidemia, unspecified; E11.9 Type 2 diabetes mellitus without complications; E55.9 Vitamin D deficiency, unspecified